=== PATIENT | female | born 1980 | race Caucasian/White ===

== ENCOUNTER 2017-01-15 09:20 | Day surgery (SDC) | payer MEDICAID ==
[2017-01-15] MEDS ORDERED: Dextrose 5%-Lactated Ringers 1,000 ML IV SCH (10:00)
[2017-01-15] MEDS ORDERED: Glycopyrrolate 0.2 MG/ML 2 ML SYRINGE IVPUSH ONE (10:30)
[2017-01-15] MEDS ORDERED: Propofol 200 MG/20 ML SDV ONE (11:02)
[2017-01-15] MEDS ORDERED: fentaNYL 100 MCG/2 ML SDV ONE (11:02)
[2017-01-15] MEDS ORDERED: Midazolam 1 MG/ML 2 ML SDV ONE (11:02)
[2017-01-15 12:27] VITALS: BP 115/70
--- NOTE | 2017-01-21 14:53 | OR ---
DATE OF PROCEDURE: 01/15/2017 PREOPERATIVE DIAGNOSIS: Dysphagia status post Willi fundoplication. POSTOPERATIVE DIAGNOSES: 1. Dysphagia status post Willi fundoplication. 2. Mild pre-pyloric gastritis. OPERATIVE PROCEDURE: Esophagogastroduodenoscopy with 1. Biopsies of antrum for CLOtest (49063). 2. Dilation of esophagus (18940). ANESTHESIA: IV sedation. INDICATION FOR PROCEDURE: The patient is remotely status post Willi fundoplication, presenting with some worsening dysphagia. Plan is to proceed with upper GI endoscopy with dilation as indicated. Potential risks including bleeding and perforation were discussed, and the patient wishes to proceed. DETAILS OF PROCEDURE: The patient was taken to the operating room and placed in a left lateral decubitus position. IV sedation was administered, after which the upper GI endoscope was passed orally through the length of the esophagus into the stomach with retroflexion view of the fundus, thereafter through the pyloric channel into the proximal duodenum. Findings included a normal esophageal body at the EG junction, and this in effect was present with no significant inflammation. Within the area of inflamation, one could clearly see into the stomach, i.e., this was not overly heightened and the scope easily passed through the area of fundoplication, retroflexion . I expect this in effect from that vantage point and within the remainder of the stomach, there was some mild redness in the pre-pyloric region. Otherwise, the pyloric channel and duodenum at the junction of 3rd and 4th portions were unremarkable. At this point, biopsies from the antrum were sent for a CLOtest for H. pylori, a guidewire was then passed into the stomach and the gastroscope withdrawn over the guidewire, then a Savary dilator 54-Yi in size was then placed across the esophagus, and held into position after which the dilator and wire were removed and the procedure concluded. The patient tolerated the procedure well. Plan would be to see the patient back in one month for recheck. The patient is also complaining of some left upper quadrant pain which is not explained by the present endoscopic findings. We will obtain a CT scan of the abdomen and pelvis and then we will see her back next 01/23/2017. Kings York MD /[id number]
== END 2017-01-15 12:44 | disposition home or self-care (01) ==
LOC: JP.SDS 09:20
PROVIDERS: ATTEND Surgery
DX: K29.60 Other gastritis without bleeding (principal); R13.10 Dysphagia, unspecified; K21.9 Gastro-esophageal reflux disease without esophagitis; F41.9 Anxiety disorder, unspecified; Z88.1 Allergy status to other antibiotic agents; Z91.013 Allergy to seafood; Z88.8 Allergy status to other drugs, medicaments and biological substances
CPT/HCPCS: 43239; 43248; 87081; J2250; J2704; J3010; J7042

== ENCOUNTER 2017-01-29 07:19 | Day surgery (SDC) | payer MEDICAID ==
[~2017-01-29 07:19] MED LIST: Midazolam 1 MG/ML 2 ML SDV ONE; Propofol 200 MG/20 ML SDV ONE; fentaNYL 100 MCG/2 ML SDV ONE
[2017-01-29] MEDS ORDERED: Dextrose 5%-Lactated Ringers 1,000 ML IV SCH (08:00)
[2017-01-29] MEDS ORDERED: Propofol 200 MG/20 ML SDV ONE (10:32)
[2017-01-29 11:56] VITALS: BP 119/72
--- NOTE | 2017-02-03 15:06 | OR ---
DATE OF PROCEDURE: 01/29/2017 PREOPERATIVE DIAGNOSIS: Possible left-sided colitis. POSTOPERATIVE DIAGNOSIS: Possible left-sided colitis. OPERATIVE PROCEDURE: Flexible colonoscopy with: 1. Random biopsies of the colon and rectum. 2. Biopsies of the descending colon (92491). ANESTHESIA: IV sedation. INDICATION FOR PROCEDURE: This is a 36-year-old presenting with some ongoing left-sided abdominal pain. Admission CT scan showed some possible thickening in the area of the descending colon as well as sigmoid colon. Given this, the patient elected to undergo a flexible colonoscopy with biopsies as indicated. Potential risks including bleeding and perforation were discussed, and the patient wishes to proceed. DETAILS OF PROCEDURE: The patient was taken to the operating room and placed in a left lateral decubitus position. IV sedation was administered, after which the initial digital rectal exam was performed and was unremarkable. Colonoscope was passed into the rectum with retroflexion revealing uncomplicated hemorrhoidal columns. The scope was eventually passed along the cecum. To that level, there was some very mild thickening of the mucosa within the descending colon. There are no ulcerations or true redness, but simply a very mild sense of some edema in that area. Apart from that, the entire remainder of the colorectal examination was unremarkable. The scope was then withdrawn. Multiple biopsies were obtained randomly through the colon and rectum. The biopsies in the descending colon area were sent as a separate specimen, given the slightly different findings grossly within that area. Minimal bleeding from the biopsy sites was seen, and the procedure was then concluded. The patient will be following up with Dr. York in [facility] in 1 week. Kings York MD /[id number]
== END 2017-01-29 12:15 ==
LOC: JP.SDS 07:19
PROVIDERS: ATTEND Surgery
DX: R10.10 Upper abdominal pain, unspecified (principal); K21.9 Gastro-esophageal reflux disease without esophagitis; F41.9 Anxiety disorder, unspecified; Z88.1 Allergy status to other antibiotic agents; Z91.013 Allergy to seafood; Z88.8 Allergy status to other drugs, medicaments and biological substances
CPT/HCPCS: 45380; 88305; J2250; J2704; J3010; J7042

== ENCOUNTER 2017-04-30 08:29 | Emergency (ER) | payer MEDICAID ==
[2017-04-30 08:44] VITALS: BP 134/86
--- NOTE | 2017-04-30 09:22 | EDM.PDOC ---
ED HPI GENERAL MEDICAL PROBLEM - General Chief Complaint: Bite:Animal, Insect Stated Complaint: TICK BITE Time Seen by Provider: 04/30/17 09:05 Source of Information: Reports: Patient History Limitations: Reports: No Limitations - History of Present Illness INITIAL COMMENTS - FREE TEXT/NARRATIVE: This lady found a tick on her back yesterday. The area hurts. Her said it wasn't a deer tick and that it was large. She complains of not feeling well and aching all over. She doesn't know how long the tick was attached. - Related Data Allergies Allergy/AdvReac Type Severity Reaction Status Date / Time tioconazole Allergy Severe Airway Verified 01/29/17 07:46 [From Monistat 1 Tightness (tioconazole)] shellfish derived Allergy Cannot Verified 01/29/17 07:46 Remember amoxicillin AdvReac Vomiting Verified 01/29/17 07:46 aspirin AdvReac Abdominal Verified 01/29/17 07:46 Pain ibuprofen AdvReac Abdominal Verified 01/29/17 07:46 Pain fish-derived products Allergy Other Uncoded 01/29/17 07:46 Home Meds: Home Meds Cholecalciferol (Vitamin D3) [Vitamin D3] 2,000 unit PO BEDTIME 04/04/14 [ History] Loratadine [Claritin RediTabs] 10 mg PO DAILY #30 tab.dis 04/27/15 [Rx] Pantoprazole [Protonix] 40 mg PO BEDTIME #30 tab.cr 04/27/15 [Rx] lamoTRIgine [Lamictal] 150 mg PO DAILY 05/02/16 [History] Ondansetron [Zofran] 4 mg PO Q4H PRN 12/15/16 [History] Past Medical History HEENT History: Reports: Sinusitis Other HEENT History: sinus infection Gastrointestinal History: Reports: GERD Genitourinary History: Reports: UTI, Recurrent GO [employer] D[employer]ER History: Reports: Musculoskeletal History: Reports: Arthritis Neurological History: Reports: Seizure Psychiatric History: Reports: Anxiety, Bipolar, Learning Disability, PTSD Endocrine/Metabolic History: Reports: Hypothyroidism, Vitamin D Deficiency - Infectious Disease History Infectious Disease History: Reports: C-Difficile - Past Surgical History GI Surgical History: Reports: Cholecystectomy, EGD, Esophageal Dilatation, Willi Fundoplication Female Surgical History: Reports: Tubal Ligation Musculoskeletal Surgical History: Reports: Carpal Tunnel Social & Family History - Family History Family Medical History: Noncontributory Cardiac: Reports: Arrhythmia Neurological: Reports: CVA - Tobacco Use Smoking Status *Q: Never Smoker Second Hand Smoke Exposure: No - Caffeine Use Caffeine Use: Reports: None - Alcohol Use Days Per Week of Alcohol Use: 0 - Recreational Drug Use Recreational Drug Use: No ED ROS GENERAL - Review of Systems Review Of Systems: See Below Constitutional: Reports: Weakness, Fatigue. Denies: Fever, Chills HEENT: Reports: No Symptoms Respiratory: Reports: No Symptoms Cardiovascular: Reports: No Symptoms : Reports: No Symptoms Musculoskeletal: Reports: Muscle Pain Skin: Reports: No Symptoms Neurological: Reports: No Symptoms Psychiatric: Reports: No Symptoms Hematologic/Lymphatic: Reports: No Symptoms ED EXAM, ANIMAL BITE - Physical Exam Exam: See Below Exam Limited By: No Limitations General Appearance: Alert, WD/WN, No Apparent Distress Eye Exam: Bilateral Eye: Normal Inspection Skin Exam: Other (there is a small red lily about 3x5 mm in the area of the right scapula. No rash. No adenopathy.) Course - Vital Signs Last Recorded V/S: Last Vital Signs Temp 36.4 C 04/30/17 08:39 Pulse 83 04/30/17 08:39 Resp 14 04/30/17 08:39 BP 134/86 04/30/17 08:39 Pulse Ox 99 04/30/17 08:39 Departure - Departure Time of Disposition: 09:24 Disposition: Home, Self-Care 01 Condition: Fair Clinical Impression: Tick bite - Discharge Information Forms: ED Department Discharge Additional Instructions: Take Doxycycline 100 mg twice daily. Lyme disease can't be diagnosed today based on your symptoms. The medication is more preventative than anything although you should go ahead and take the medication for a full 10 days. If not getting better in a few days then see your doctor.
== END 2017-04-30 09:43 | disposition home or self-care (01) ==
LOC: JP.ED 08:29
DX: S40.261A Insect bite (nonvenomous) of right shoulder, initial encounter (principal); W57.XXXA Bitten or stung by nonvenomous insect and other nonvenomous arthropods, initial encounter; K21.9 Gastro-esophageal reflux disease without esophagitis; E03.9 Hypothyroidism, unspecified; Z90.49 Acquired absence of other specified parts of digestive tract; Z98.51 Tubal ligation status; Z79.899 Other long term (current) drug therapy; Z91.013 Allergy to seafood; Z88.8 Allergy status to other drugs, medicaments and biological substances; Z88.1 Allergy status to other antibiotic agents; Z88.6 Allergy status to analgesic agent
CPT/HCPCS: 99283

== ENCOUNTER 2017-08-02 06:53 | Day surgery (SDC) | payer MEDICAID ==
[2017-08-02] MEDS ORDERED: fentaNYL 100 MCG/2 ML SDV ONE (07:06)
[2017-08-02] MEDS ORDERED: Propofol 200 MG/20 ML SDV ONE (07:06)
[2017-08-02] MEDS ORDERED: Midazolam 1 MG/ML 2 ML SDV ONE (07:06)
[2017-08-02] MEDS ORDERED: Dextrose 5%-Lactated Ringers 1,000 ML IV SCH (07:30)
[2017-08-02] MEDS ORDERED: Glycopyrrolate 0.2 MG/ML 2 ML SDV IVPUSH ONE (08:00)
[2017-08-02 10:41] VITALS: BP 122/74
--- NOTE | 2017-08-07 15:04 | OR ---
DATE OF PROCEDURE: 08/02/2017 PREOPERATIVE DIAGNOSIS: Dysphagia status post Willi fundoplication. POSTOPERATIVE DIAGNOSIS: Dysphagia status post Willi fundoplication. OPERATIVE PROCEDURE: Upper GI endoscopy with esophageal dilation (38458). ANESTHESIA: IV sedation. INDICATION FOR PROCEDURE: This is a 36-year-old status post Willi fundoplication in 2011. She intermittently has problems with dysphagia and does well with dilation with the last dilation having been performed in December. Plan is to proceed with upper GI endoscopy with dilation as indicated. Potential risks including bleeding and perforation were discussed, and the patient wishes to proceed. DETAILS OF PROCEDURE: The patient was taken to the operating room and placed in a left lateral decubitus position. IV sedation was administered, after which the upper GI endoscope was passed orally through the length of the esophagus and into the stomach with retroflexion view of the fundus, thereafter through the pyloric channel and into the proximal duodenum. Findings included a normal hypopharynx, larynx, upper esophageal sphincter, and esophageal body. No esophageal dilation was noted. The patient had an intact Willi effect at the EG junction with there being no gross inflammation with the distal esophageal mucosa being soft and pliable. The opening through the area of fundoplication was without significant abnormal tightness grossly, with this opening easily with insufflation within the distal esophagus. Within the stomach, no problems were noted. The Willi effect was confirmed with retroflexion. Pyloric channel and proximal duodenum were unremarkable. At this point, a guidewire was passed into the stomach, and the gastroscope was withdrawn. Over this, then a 54-[place] Savary dilator was placed. This was held in position for 1 minute. After which, the dilator and wire were removed. The patient was taken to the recovery room in a satisfactory condition. The patient will be instructed to contact us sooner if she has recurrent problems with dysphagia. Kings York MD /[id number]
== END 2017-08-02 12:00 | disposition home or self-care (01) ==
LOC: JP.SDS 06:53
PROVIDERS: ATTEND Surgery
DX: R13.10 Dysphagia, unspecified (principal); K21.9 Gastro-esophageal reflux disease without esophagitis; E03.9 Hypothyroidism, unspecified; F41.9 Anxiety disorder, unspecified; E55.9 Vitamin D deficiency, unspecified; Z88.1 Allergy status to other antibiotic agents; Z91.013 Allergy to seafood; Z88.8 Allergy status to other drugs, medicaments and biological substances; Z90.49 Acquired absence of other specified parts of digestive tract; Z98.51 Tubal ligation status; Z98.890 Other specified postprocedural states
CPT/HCPCS: 43248; J2250; J2704; J3010; J7042

== ENCOUNTER 2018-03-21 19:58 | Emergency (ER) | payer MEDICAID ==
[2018-03-21 20:14] VITALS: BP 145/85
[2018-03-21] MEDS ORDERED: Doxycycline 100 MG Cap PO ONE (20:36)
[2018-03-21] MEDS ORDERED: Acetaminophen 500 MG Tab PO ONE (20:36)
--- NOTE | 2018-03-21 20:39 | EDM.PDOC ---
ED HPI GENERAL MEDICAL PROBLEM - General Chief Complaint: Back Pain or Injury Stated Complaint: SHARP STOMACH PAINS Time Seen by Provider: 03/21/18 20:25 Source of Information: Reports: Patient History Limitations: Reports: No Limitations - History of Present Illness INITIAL COMMENTS - FREE TEXT/NARRATIVE: Patient presents to the ER with complaints of tick bite to right upper back. She states the tick could have been attached for 4 days. She denies fever, chills or muscle aches. She complains of right sided pain off and on. abd Pain Score (Numeric/FACES): 9 - Related Data Allergies Allergy/AdvReac Type Severity Reaction Status Date / Time tioconazole Allergy Severe Airway Verified 03/21/18 20:17 [From Monistat 1 Tightness (tioconazole)] shellfish derived Allergy Cannot Verified 03/21/18 20:17 Remember amoxicillin AdvReac Vomiting Verified 03/21/18 20:17 aspirin AdvReac Abdominal Verified 03/21/18 20:17 Pain ibuprofen AdvReac Abdominal Verified 03/21/18 20:17 Pain fish-derived products Allergy Other Uncoded 03/21/18 20:17 Home Meds: Home Meds Cholecalciferol (Vitamin D3) [Vitamin D3] 2,000 unit PO BEDTIME 04/04/14 [ History] Loratadine [Claritin RediTabs] 10 mg PO DAILY #30 tab.dis 04/27/15 [Rx] Pantoprazole [Protonix] 40 mg PO BEDTIME #30 tab.cr 04/27/15 [Rx] lamoTRIgine [Lamictal] 200 mg PO DAILY 05/02/16 [History] Ondansetron [Zofran] 4 mg PO Q4H PRN 12/15/16 [History] Fluticasone/Salmeterol [Advair 250-50 Diskus] 2 puff INH DAILY 03/21/18 [History ] QUEtiapine [SEROquel] 100 mg PO BEDTIME 03/21/18 [History] Past Medical History HEENT History: Reports: Sinusitis Other HEENT History: sinus infection Respiratory History: Reports: Asthma Gastrointestinal History: Reports: GERD Genitourinary History: Reports: UTI, Recurrent [employer] MANAGER History: Reports: Musculoskeletal History: Reports: Arthritis Neurological History: Reports: Seizure Psychiatric History: Reports: Anxiety, Bipolar, Learning Disability, PTSD Endocrine/Metabolic History: Reports: Hypothyroidism, Vitamin D Deficiency Hematologic History: Reports: B12 Deficiency, Iron Deficiency - Infectious Disease History Infectious Disease History: Reports: C-Difficile - Past Surgical History Head Surgeries/Procedures: Reports: None HEENT Surgical History: Reports: None Cardiovascular Surgical History: Reports: None GI Surgical History: Reports: Cholecystectomy, EGD, Esophageal Dilatation, Willi Fundoplication Female Surgical History: Reports: Tubal Ligation Neurological Surgical History: Reports: None Musculoskeletal Surgical History: Reports: Carpal Tunnel Dermatological Surgical History: Reports: None Social & Family History - Family History Family Medical History: Noncontributory Cardiac: Reports: Arrhythmia, Prior Cardiac Arrest OBGYN: Reports: Neurological: Reports: CVA - Caffeine Use Caffeine Use: Reports: Tea - Recreational Drug Use Recreational Drug Use: No ED ROS GENERAL - Review of Systems Review Of Systems: See Below Constitutional: Denies: Fever, Chills, Malaise, Weakness HEENT: Reports: No Symptoms Respiratory: Reports: No Symptoms Cardiovascular: Reports: No Symptoms Endocrine: Reports: No Symptoms GI/Abdominal: Reports: No Symptoms Musculoskeletal: Denies: Shoulder Pain, Joint Swelling, Muscle Pain, Muscle Stiffness Skin: Reports: Other (tick bite to right upper back.) Neurological: Reports: No Symptoms Psychiatric: Reports: No Symptoms Hematologic/Lymphatic: Reports: No Symptoms Immunologic: Reports: No Symptoms ED EXAM, SKIN/RASH Exam: See Below Text/Narrative:: Sabi presents to the ER tonight for complaints of tick bite to right upper back for four days and intermittent left sided rib pain. Exam Limited By: No Limitations General Appearance: Alert, WD/WN, No Apparent Distress Eye Exam: Bilateral Eye: EOMI, PERRL, Vision Changes Ears: Normal External Exam, Normal Canal, Hearing Grossly Normal, Normal TMs Nose: Normal Inspection, Normal Mucosa, No Blood Throat/Mouth: Normal Inspection, Normal Lips, Normal Gums, Normal Oropharynx, Normal Voice, No Airway Compromise, Perioral Cyanosis Head: Atraumatic Neck: Normal Inspection, Supple, Non-Tender, Full Range of Motion. No: Lymphadenopathy (R), Lymphadenopathy (L) Respiratory/Chest: No Respiratory Distress, Lungs Clear, Normal Breath Sounds, No Accessory Muscle Use, Chest Non-Tender Cardiovascular: Normal Peripheral Pulses, Regular Rate, Rhythm, No Edema, No Murmur, No Rub Peripheral Pulses: 2+: Radial (L), Radial (R), Dorsalis Pedis (L), Dorsalis Pedis (R) GI/Abdominal: Normal Bowel Sounds, Soft, Non-Tender, No Organomegaly, No Distention Back Exam: Normal Inspection, Full Range of Motion. No: CVA Tenderness (R), CVA Tenderness (L) Extremities: Normal Inspection, Normal Range of Motion, Non-Tender, No Pedal Edema, Normal Capillary Refill Neurological: Alert, Oriented, Normal Cognition, Normal Gait, Normal Reflexes, No Motor/Sensory Deficits Psychiatric: Normal Affect, Normal Mood Skin: Warm, Dry, Intact, Normal Color, No Rash, Other (Small area of redness noted to site of tickbite, 0.5cm round. ) Location, Skin: Back Characteristics: Maculopapular Associated features: No: Warmth, Tenderness, Swelling, Induration, Inflammation , Crusting, Weeping Lymphatic: No Adenopathy Course - Vital Signs Last Recorded V/S: Last Vital Signs Temp 36.8 C 03/21/18 20:22 Pulse 110 H 03/21/18 20:22 Resp 16 03/21/18 20:22 BP 145/85 H 03/21/18 20:22 Pulse Ox 97 03/21/18 20:22 - Orders/Labs/Meds Meds: Medications Discontinued Medications Generic Name Dose Route Start Last Admin Trade Name Frank PRN Reason Stop Dose Admin Acetaminophen 1,000 mg 03/21/18 20:36 03/21/18 20:41 Tylenol Extra Strength PO 03/21/18 20:37 1,000 mg ONETIME ONE Administration Doxycycline Hyclate 200 mg 03/21/18 20:36 03/21/18 20:41 Vibramycin PO 03/21/18 20:37 200 mg ONETIME ONE Administration Departure - Departure Time of Disposition: 20:36 Disposition: Home, Self-Care 01 Condition: Good Clinical Impression: Tick bite of back - Discharge Information Instructions: Tick Bite Information, Adult, [id number] Referrals: Kiah Howard PA [Primary Care Provider] - Forms: ED Department Discharge Additional Instructions: You have been treated and evaluated for a tick bite with possible attachment of 96 hours. You were given a prophylactic dose of doxycycline 200mg PO. Take acetaminophen as needed for pain. Keep yourself hydrated. Follow up with your primary provider in 14 weeks for recheck. Return for worsening, issues or concerns. - Assessment/Plan Assessment:: Tick bite back Plan: Patient evaluated for a tick bite with possible attachment of 96 hours. She was given a prophylactic dose of doxycycline 200mg PO. Take acetaminophen as needed for pain. Keep hydrated. Follow up with primary provider in 14 weeks for recheck. Return for worsening, issues or concerns.
== END 2018-03-21 20:52 | disposition home or self-care (01) ==
LOC: JP.ED 19:58
DX: S20.461A Insect bite (nonvenomous) of right back wall of thorax, initial encounter (principal); Z88.6 Allergy status to analgesic agent; Z91.013 Allergy to seafood; Z88.8 Allergy status to other drugs, medicaments and biological substances; Z79.899 Other long term (current) drug therapy; W57.XXXA Bitten or stung by nonvenomous insect and other nonvenomous arthropods, initial encounter
CPT/HCPCS: 99283; A9270

== ENCOUNTER 2018-05-12 21:05 | Emergency (ER) | payer MEDICAID ==
[2018-05-12 21:19] VITALS: BP 136/75
--- NOTE | 2018-05-12 21:46 | EDM.PDOC ---
ED HPI GENERAL MEDICAL PROBLEM - General Chief Complaint: ENT Problem Stated Complaint: TOOTH PAIN Time Seen by Provider: 05/12/18 21:25 Source of Information: Reports: Patient History Limitations: Reports: No Limitations - History of Present Illness INITIAL COMMENTS - FREE TEXT/NARRATIVE: 37-year-old female with right mandibular dental pain for the past several weeks. Over the past 48 hours she started developing some erythema and swelling around the second molar. All of her upper teeth have been removed, but her regular dentist can see her until May. She has called around in [place] and no one will see her. The pain radiates up into the right ear area but there is no significant swelling or erythema. No fevers or chills. Onset: Gradual (over the past 2 weeks) Severity: Moderate Associated Symptoms: Reports: Headaches. Denies: Fever/Chills right side Pain Score (Numeric/FACES): 10 - Related Data Allergies Allergy/AdvReac Type Severity Reaction Status Date / Time tioconazole Allergy Severe Airway Verified 05/12/18 21:17 [From Monistat 1 Tightness (tioconazole)] shellfish derived Allergy Cannot Verified 05/12/18 21:17 Remember amoxicillin AdvReac Vomiting Verified 05/12/18 21:17 aspirin AdvReac Abdominal Verified 05/12/18 21:17 Pain ibuprofen AdvReac Abdominal Verified 05/12/18 21:17 Pain fish-derived products Allergy Other Uncoded 05/12/18 21:17 Home Meds: Home Meds Cholecalciferol (Vitamin D3) [Vitamin D3] 2,000 unit PO BEDTIME 04/04/14 [ History] Loratadine [Claritin RediTabs] 10 mg PO DAILY #30 tab.dis 04/27/15 [Rx] Pantoprazole [Protonix] 40 mg PO BEDTIME #30 tab.cr 04/27/15 [Rx] lamoTRIgine [Lamictal] 200 mg PO DAILY 05/02/16 [History] Ondansetron [Zofran] 4 mg PO Q4H PRN 12/15/16 [History] Fluticasone/Salmeterol [Advair 250-50 Diskus] 2 puff INH DAILY 03/21/18 [History ] QUEtiapine [SEROquel] 100 mg PO BEDTIME 03/21/18 [History] Past Medical History HEENT History: Reports: Sinusitis Other HEENT History: sinus infection Respiratory History: Reports: Asthma Gastrointestinal History: Reports: GERD Genitourinary History: Reports: UTI, Recurrent [employer] History: Reports: Musculoskeletal History: Reports: Arthritis Neurological History: Reports: Seizure Psychiatric History: Reports: Anxiety, Bipolar, Learning Disability, PTSD Endocrine/Metabolic History: Reports: Hypothyroidism, Vitamin D Deficiency Hematologic History: Reports: B12 Deficiency, Iron Deficiency - Infectious Disease History Infectious Disease History: Reports: C-Difficile - Past Surgical History Head Surgeries/Procedures: Reports: None HEENT Surgical History: Reports: None Cardiovascular Surgical History: Reports: None GI Surgical History: Reports: Cholecystectomy, EGD, Esophageal Dilatation, Willi Fundoplication Female Surgical History: Reports: Tubal Ligation Neurological Surgical History: Reports: None Musculoskeletal Surgical History: Reports: Carpal Tunnel Dermatological Surgical History: Reports: None Social & Family History - Family History Family Medical History: Noncontributory Cardiac: Reports: Arrhythmia, Prior Cardiac Arrest OBGYN: Reports: Neurological: Reports: CVA - Tobacco Use Smoking Status *Q: Never Smoker - Caffeine Use Caffeine Use: Reports: None - Recreational Drug Use Recreational Drug Use: No ED ROS ENT - Review of Systems Review Of Systems: See Below Constitutional: Denies: Fever, Chills Respiratory: Denies: Shortness of Breath Cardiovascular: Denies: Chest Pain GI/Abdominal: Denies: Nausea, Vomiting Skin: Denies: Erythema Neurological: Reports: Headache ED EXAM, ENT - Physical Exam Exam: See Below Exam Limited By: No Limitations General Appearance: Alert, No Apparent Distress (Looks uncomfortable but not distressed) Mouth/Throat: Other (She has diffuse dental caries of the lower teeth, the second molar on the right mandible has gingival inflammation and swelling around the tooth, it is tender to percussion) Course - Vital Signs Last Recorded V/S: Last Vital Signs Temp 98 F 05/12/18 21:17 Pulse 93 05/12/18 21:17 Resp 18 05/12/18 21:17 BP 136/75 05/12/18 21:17 Pulse Ox 99 05/12/18 21:17 - Re-Assessments/Exams Free Text/Narrative Re-Assessment/Exam: 05/12/18 21:44 Patient was placed on penicillin VK 500 4 times a day and given 6 [place] to help with pain control over the next 24 hours. A dental referral was written for tomorrow morning, so hopefully she can get dental care established here in [place]. Departure - Departure Time of Disposition: 21:54 Disposition: Home, Self-Care 01 Condition: Good Clinical Impression: Dental abscess - Discharge Information Instructions: Dental Abscess, [id number] Referrals: Kiah Howard PA [Primary Care Provider] - Forms: ED Department Discharge Care Plan Goals: Take antibiotic 4 times a day, work into the dental clinic tomorrow for an evaluation. Tylenol or ibuprofen for pain and add stronger pain medication over the next 24 hours as needed.
== END 2018-05-12 21:54 | disposition home or self-care (01) ==
LOC: JP.ED 21:05
DX: K04.7 Periapical abscess without sinus (principal)
CPT/HCPCS: 99283

== ENCOUNTER 2018-11-23 10:43 | Emergency (ER) | payer MEDICAID ==
[2018-11-23 11:26] VITALS: BP 129/75
[2018-11-23] MEDS ORDERED: Sodium Chloride 0.9% 10 ML Syringe FLUSH PRN (12:11)
[2018-11-23] MEDS ORDERED: Ondansetron 4 MG/2 ML SDV IVPUSH ONE (12:11)
[2018-11-23] MEDS ORDERED: Sodium Chloride 0.9% 1,000 ML IV ONE (12:11)
--- NOTE | 2018-11-23 14:08 | EDM.PDOC ---
ED HPI GENERAL MEDICAL PROBLEM - General Chief Complaint: Abdominal Pain Stated Complaint: VOMITING Time Seen by Provider: 11/23/18 11:08 Source of Information: Reports: Patient History Limitations: Reports: No Limitations - History of Present Illness INITIAL COMMENTS - FREE TEXT/NARRATIVE: This lady comes in complaining of vomiting and diarrhea since this morning. She' s had several episodes of diarrhea she's vomited several times she said it sort of like a white phlegm. She's had chills but no fever. She did not get a flu shot but doesn't have any symptoms such as fever or body aches and so forth. - Related Data Allergies Allergy/AdvReac Type Severity Reaction Status Date / Time tioconazole Allergy Severe Airway Verified 11/23/18 11:12 [From Monistat 1 Tightness (tioconazole)] shellfish derived Allergy Cannot Verified 11/23/18 11:12 Remember amoxicillin AdvReac Vomiting Verified 11/23/18 11:12 aspirin AdvReac Abdominal Verified 11/23/18 11:12 Pain ibuprofen AdvReac Abdominal Verified 11/23/18 11:12 Pain fish-derived products Allergy Other Uncoded 11/23/18 11:12 Home Meds: Home Meds Cholecalciferol (Vitamin D3) [Vitamin D3] 2,000 unit PO BEDTIME 04/04/14 [ History] Loratadine [Claritin RediTabs] 10 mg PO DAILY #30 tab.dis 04/27/15 [Rx] Pantoprazole [Protonix] 40 mg PO BEDTIME #30 tab.cr 04/27/15 [Rx] lamoTRIgine [Lamictal] 200 mg PO DAILY 05/02/16 [History] Fluticasone/Salmeterol [Advair 250-50 Diskus] 2 puff INH DAILY 03/21/18 [History ] QUEtiapine [SEROquel] 100 mg PO BEDTIME 03/21/18 [History] Past Medical History HEENT History: Reports: Sinusitis Other HEENT History: sinus infection Respiratory History: Reports: Asthma Gastrointestinal History: Reports: GERD Genitourinary History: Reports: UTI, Recurrent 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: Musculoskeletal History: Reports: Arthritis Neurological History: Reports: Seizure Psychiatric History: Reports: Anxiety, Bipolar, Learning Disability, PTSD Endocrine/Metabolic History: Reports: Hypothyroidism, Vitamin D Deficiency Hematologic History: Reports: B12 Deficiency, Iron Deficiency - Infectious Disease History Infectious Disease History: Reports: C-Difficile - Past Surgical History Head Surgeries/Procedures: Reports: None HEENT Surgical History: Reports: None Cardiovascular Surgical History: Reports: None GI Surgical History: Reports: Cholecystectomy, EGD, Esophageal Dilatation, Willi Fundoplication Female Surgical History: Reports: Tubal Ligation Neurological Surgical History: Reports: None Musculoskeletal Surgical History: Reports: Carpal Tunnel Dermatological Surgical History: Reports: None Social & Family History - Family History Family Medical History: Noncontributory Cardiac: Reports: Arrhythmia, Prior Cardiac Arrest OBGYN: Reports: Neurological: Reports: CVA - Tobacco Use Smoking Status *Q: Never Smoker - Caffeine Use Caffeine Use: Reports: None ED ROS GENERAL - Review of Systems Review Of Systems: See Below Constitutional: Reports: Chills HEENT: Reports: No Symptoms Respiratory: Reports: No Symptoms Cardiovascular: Reports: No Symptoms Endocrine: Reports: No Symptoms GI/Abdominal: Reports: Abdominal Pain, Diarrhea, Vomiting : Reports: No Symptoms Musculoskeletal: Reports: No Symptoms Skin: Reports: No Symptoms Neurological: Reports: No Symptoms ED EXAM, GI/ABD - Physical Exam Exam: See Below Exam Limited By: No Limitations General Appearance: Alert Eyes: Bilateral: Normal Appearance Throat/Mouth: Normal Oropharynx Head: Atraumatic Neck: Normal Inspection Respiratory/Chest: No Respiratory Distress, Normal Breath Sounds Cardiovascular: Regular Rate, Rhythm, Other GI/Abdominal Exam: Normal Bowel Sounds, Soft Extremities: Normal Inspection Course - Vital Signs Last Recorded V/S: Last Vital Signs Temp 35.8 C 11/23/18 11:24 Pulse 84 11/23/18 11:24 Resp 14 11/23/18 11:24 BP 129/75 11/23/18 11:24 Pulse Ox 97 11/23/18 11:24 - Orders/Labs/Meds Orders: Active Orders 24 hr Category Date Time Status Sodium Chloride 0.9% [Saline Flush] Med 11/23/18 12:11 Active 10 ml FLUSH ASDIRECTED PRN Saline Lock Insert [OM.PC] Urgent Oth 11/23/18 12:11 Ordered Medication Orders Sodium Chloride (Saline Flush) 10 ml FLUSH ASDIRECTED PRN PRN Reason: Keep Vein Open Last Admin: 11/23/18 12:28 Dose: 10 ml Labs: Laboratory Tests 11/23/18 11/23/18 Range/Units 12:10 12:10 WBC 9.7 (4.5-11.0) K/uL RBC 5.08 (3.30-5.50) M/uL Hgb 14.5 (12.0-15.0) g/dL Hct 44.1 (36.0-48.0) % MCV 87 (80-98) fL MCH 29 (27-31) pg MCHC 33 (32-36) % Plt Count 336 (150-400) K/uL Neut % (Auto) 88 H (36-66) % Lymph % (Auto) 8 L (24-44) % Hand % (Auto) 3 (2-6) % Eos % (Auto) 0 L (2-4) % Baso % (Auto) 0 (0-1) % Sodium 139 L (140-148) mmol/L Potassium 3.8 (3.6-5.2) mmol/L Chloride 101 (100-108) mmol/L Carbon Dioxide 28 (21-32) mmol/L Anion Gap 13.8 (5.0-14.0) mmol/L BUN 3 L (7-18) mg/dL Creatinine 0.6 (0.6-1.0) mg/dL Est Cr Clr Drug Dosing 117.84 mL/min Estimated GFR (MDRD) > 60 (>60) Glucose 117 H (74-106) mg/dL Calcium 9.0 (8.5-10.1) mg/dL Total Bilirubin 0.5 (0.2-1.0) mg/dL AST 12 L (15-37) U/L ALT 20 (12-78) U/L Alkaline Phosphatase 55 D (46-116) U/L Total Protein 7.4 (6.4-8.2) g/dL Albumin 3.6 (3.4-5.0) g/dL Globulin 3.8 H (2.3-3.5) g/dL Albumin/Globulin Ratio 1.0 L (1.2-2.2) Meds: Medications Generic Name Dose Route Start Last Admin Trade Name Freq PRN Reason Stop Dose Admin Sodium Chloride 10 ml 11/23/18 12:11 11/23/18 12:28 Saline Flush FLUSH 10 ml ASDIRECTED PRN Administration Keep Vein Open Discontinued Medications Generic Name Dose Route Start Last Admin Trade Name Freq PRN Reason Stop Dose Admin Sodium Chloride 1,000 mls @ 999 mls/hr 11/23/18 12:11 11/23/18 12:29 Normal Saline IV 11/23/18 13:11 999 mls/hr .BOLUS ONE Administration Ondansetron HCl 4 mg 11/23/18 12:11 11/23/18 12:29 Zofran IVPUSH 11/23/18 12:12 4 mg ONETIME ONE Administration Departure - Departure Time of Disposition: 14:11 Disposition: Home, Self-Care 01 Condition: Fair Clinical Impression: Gastroenteritis - Discharge Information Referrals: Kiah Howard PA [Primary Care Provider] - Additional Instructions: Clear liquid diet for the next 24 hours. For diarrhea and cramps use Lomotil 2 tablets 4 times per day, #15. For nausea and vomiting take Zofran 4 mg sublingual every 8 hours #10. See your Dr. if no better in 1 or 2 days - My Orders Last 24 Hours: My Active Orders 11/23/18 12:11 Sodium Chloride 0.9% [Saline Flush] 10 ml FLUSH ASDIRECTED PRN Saline Lock Insert [OM.PC] Urgent - Assessment/Plan Last 24 Hours: My Active Orders 11/23/18 12:11 Sodium Chloride 0.9% [Saline Flush] 10 ml FLUSH ASDIRECTED PRN Saline Lock Insert [OM.PC] Urgent
== END 2018-11-23 14:32 | disposition home or self-care (01) ==
LOC: JP.ED 10:43
DX: K52.9 Noninfective gastroenteritis and colitis, unspecified (principal); E03.9 Hypothyroidism, unspecified; Z90.49 Acquired absence of other specified parts of digestive tract; Z79.899 Other long term (current) drug therapy; Z98.51 Tubal ligation status; Z88.1 Allergy status to other antibiotic agents; Z88.6 Allergy status to analgesic agent; Z91.013 Allergy to seafood; Z88.8 Allergy status to other drugs, medicaments and biological substances
CPT/HCPCS: 36415; 80053; 85025; 96374; 99284; J2405; J7030

== ENCOUNTER 2018-11-24 05:39 | Emergency (ER) | payer MEDICAID ==
[2018-11-24] MEDS ORDERED: Sodium Chloride 0.9% 10 ML Syringe FLUSH PRN (06:14)
[2018-11-24] MEDS ORDERED: Lactated Ringers 1,000 ML IV SCH (06:15)
[2018-11-24] MEDS ORDERED: fentaNYL 100 MCG/2 ML SDV IVPUSH ONE (06:17)
[2018-11-24] MEDS ORDERED: Pantoprazole 40 MG Vial IVPUSH ONE (06:17)
--- NOTE | 2018-11-24 06:26 | EDM.PDOC ---
<OfficerManpreet - Last Filed: 11/24/18 06:23> ED HPI GENERAL MEDICAL PROBLEM - General Chief Complaint: Gastrointestinal Problem Stated Complaint: STOMACH PAIN VOMITING Time Seen by Provider: 11/24/18 06:09 Source of Information: Reports: Patient, Old Records, RN Notes Reviewed History Limitations: Reports: No Limitations - History of Present Illness INITIAL COMMENTS - FREE TEXT/NARRATIVE: Was evaluated for nausea vomiting diarrhea yesterday in the emergency department felt to have gastroenteritis, she states the diarrhea has resolved the nausea and vomiting could earlier this morning but now she's developed epigastric pain is constant in nature however she is still nauseated no shortness of breath no chest pain no diaphoresis abd pain Pain Score (Numeric/FACES): 10 - Related Data Allergies Allergy/AdvReac Type Severity Reaction Status Date / Time tioconazole Allergy Severe Airway Verified 11/24/18 05:54 [From Monistat 1 Tightness (tioconazole)] shellfish derived Allergy Cannot Verified 11/24/18 05:54 Remember amoxicillin AdvReac Vomiting Verified 11/24/18 05:54 aspirin AdvReac Abdominal Verified 11/24/18 05:54 Pain ibuprofen AdvReac Abdominal Verified 11/24/18 05:54 Pain fish-derived products Allergy Other Uncoded 11/24/18 05:54 Home Meds: Home Meds Cholecalciferol (Vitamin D3) [Vitamin D3] 2,000 unit PO BEDTIME 04/04/14 [ History] Loratadine [Claritin RediTabs] 10 mg PO DAILY #30 tab.dis 04/27/15 [Rx] Pantoprazole [Protonix] 40 mg PO BEDTIME #30 tab.cr 04/27/15 [Rx] lamoTRIgine [Lamictal] 200 mg PO DAILY 05/02/16 [History] Fluticasone/Salmeterol [Advair 250-50 Diskus] 2 puff INH DAILY 03/21/18 [History ] QUEtiapine [SEROquel] 100 mg PO BEDTIME 03/21/18 [History] Past Medical History HEENT History: Reports: Sinusitis Other HEENT History: sinus infection Respiratory History: Reports: Asthma Gastrointestinal History: Reports: GERD Genitourinary History: Reports: UTI, Recurrent 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: Musculoskeletal History: Reports: Arthritis Neurological History: Reports: Seizure Psychiatric History: Reports: Anxiety, Bipolar, Learning Disability, PTSD Endocrine/Metabolic History: Reports: Hypothyroidism, Vitamin D Deficiency Hematologic History: Reports: B12 Deficiency, Iron Deficiency - Infectious Disease History Infectious Disease History: Reports: Chicken Pox - Past Surgical History Head Surgeries/Procedures: Reports: None HEENT Surgical History: Reports: None Cardiovascular Surgical History: Reports: None GI Surgical History: Reports: Cholecystectomy, EGD, Esophageal Dilatation, Willi Fundoplication Female Surgical History: Reports: Tubal Ligation Neurological Surgical History: Reports: None Musculoskeletal Surgical History: Reports: Carpal Tunnel Dermatological Surgical History: Reports: None Social & Family History - Family History Family Medical History: Noncontributory Cardiac: Reports: Arrhythmia, Prior Cardiac Arrest OBGYN: Reports: Neurological: Reports: CVA - Tobacco Use Smoking Status *Q: Unknown Ever Smoked - Caffeine Use Caffeine Use: Reports: Coffee, Soda - Recreational Drug Use Recreational Drug Use: No ED ROS GENERAL - Review of Systems Review Of Systems: See Below Constitutional: Denies: Fever, Chills HEENT: Reports: No Symptoms Respiratory: Reports: No Symptoms Cardiovascular: Reports: No Symptoms GI/Abdominal: Reports: Abdominal Pain, Diarrhea, Nausea, Vomiting (Now resolved resolved) : Reports: No Symptoms Musculoskeletal: Reports: No Symptoms Skin: Reports: No Symptoms ED EXAM, GI/ABD - Physical Exam Exam: See Below Exam Limited By: No Limitations General Appearance: Alert, Mild Distress Eyes: Bilateral: Normal Appearance Respiratory/Chest: No Respiratory Distress, Lungs Clear, Normal Breath Sounds, No Accessory Muscle Use Cardiovascular: Regular Rate, Rhythm, No Murmur GI/Abdominal Exam: Normal Bowel Sounds (Epigastric pain), Soft, No Distention, Tender Course - Vital Signs Last Recorded V/S: Last Vital Signs Temp 36.1 C 11/24/18 05:51 Pulse 105 H 11/24/18 10:13 Resp 16 11/24/18 10:13 BP 116/71 11/24/18 10:13 Pulse Ox 99 11/24/18 10:13 - Orders/Labs/Meds Orders: Active Orders 24 hr Category Date Time Status Peripheral IV Care [RC] . DIRECTED Care 11/24/18 06:14 Active Abdomen Pelvis w Cont [CT] Stat Exams 11/24/18 06:54 Taken CULTURE URINE [RM] Stat Lab 11/24/18 10:15 Ordered Iopamidol [Isovue-300 (61%)] Med 11/24/18 07:01 Active 132 ml IV . DIRECTED PRN Lactated Ringers [Ringers, Lactated] 1,000 ml Med 11/24/18 06:15 Active IV ASDIRECTED Sodium Chloride 0.9% [Normal Saline] 1,000 ml Med 11/24/18 08:15 Active IV ASDIRECTED Sodium Chloride 0.9% [Normal Saline] 80 ml Med 11/24/18 07:15 Active IV ASDIRECTED Sodium Chloride 0.9% [Saline Flush] Med 11/24/18 06:14 Active 10 ml FLUSH ASDIRECTED PRN Peripheral IV Insertion Adult [OM.PC] Urgent Oth 11/24/18 06:14 Ordered Medication Orders Lactated Ringer's (Ringers, Lactated) 1,000 mls @ 999 mls/hr IV ASDIRECTED MONCHO Last Admin: 11/24/18 06:31 Dose: 999 mls/hr Sodium Chloride (Normal Saline) 80 mls @ 3.5 mls/sec IV ASDIRECTED MONCHO Last Admin: 11/24/18 07:16 Dose: 3.5 mls/sec Sodium Chloride (Normal Saline) 1,000 mls @ 999 mls/hr IV ASDIRECTED MONCHO Last Admin: 11/24/18 08:13 Dose: 999 mls/hr Iopamidol (Isovue-300 (61%)) 132 ml IV . DIRECTED PRN PRN Reason: RADIOLOGY EXAM Stop: 11/25/18 07:02 Last Admin: 11/24/18 07:16 Dose: 132 ml Sodium Chloride (Saline Flush) 10 ml FLUSH ASDIRECTED PRN PRN Reason: Keep Vein Open Last Admin: 11/24/18 06:35 Dose: 10 ml Labs: Laboratory Tests 11/24/18 11/24/18 11/24/18 Range/Units 06:14 06:32 06:32 WBC 10.6 (4.5-11.0) K/uL RBC 4.89 (3.30-5.50) M/uL Hgb 14.0 (12.0-15.0) g/dL Hct 42.8 (36.0-48.0) % MCV 88 (80-98) fL MCH 29 (27-31) pg MCHC 33 (32-36) % Plt Count 327 (150-400) K/uL Neut % (Auto) 89 H (36-66) % Lymph % (Auto) 8 L (24-44) % [place] % (Auto) 4 (2-6) % Eos % (Auto) 0 L (2-4) % Baso % (Auto) 0 (0-1) % Sodium 141 (140-148) mmol/L Potassium 3.6 (3.6-5.2) mmol/L Chloride 102 (100-108) mmol/L Carbon Dioxide 28 (21-32) mmol/L Anion Gap 10.6 (5.0-14.0) mmol/L BUN 3 L (7-18) mg/dL Creatinine 0.8 (0.6-1.0) mg/dL Est Cr Clr Drug Dosing 88.38 mL/min Estimated GFR (MDRD) > 60 (>60) Glucose 111 H (74-106) mg/dL Lactic Acid (0.4-2.0) mmol/L Calcium 8.9 (8.5-10.1) mg/dL Total Bilirubin 0.6 (0.2-1.0) mg/dL AST 75 H D (15-37) U/L ALT 54 D (12-78) U/L Alkaline Phosphatase 74 (46-116) U/L Troponin I < 0.017 (0.000-0.056) ng/mL C-Reactive Protein (0.0-0.3) mg/dL Total Protein 7.5 (6.4-8.2) g/dL Albumin 3.6 (3.4-5.0) g/dL Globulin 3.9 H (2.3-3.5) g/dL Albumin/Globulin Ratio 0.9 L (1.2-2.2) Lipase 92 (73-393) U/L Urine Color Yellow Urine Appearance Cloudy Urine pH 5.0 (4.5-8.0) Ur Specific [place] 1.025 (1.008-1.030) Urine Protein Trace (NEGATIVE) mg/dL Urine Glucose (UA) Normal (NEGATIVE) mg/dL Urine Ketones Negative (NEGATIVE) mg/dL Urine Occult Blood Trace (NEGATIVE) Urine Nitrite Negative (NEGATIVE) Urine Bilirubin Negative (NEGATIVE) Urine Urobilinogen Normal (NORMAL) mg/dL Ur Leukocyte Esterase Trace (NEGATIVE) Urine RBC 0-5 (0-5) Urine WBC 5-10 H (0-5) Ur Epithelial Cells Many Amorphous Sediment Not seen Urine Bacteria Moderate Urine Mucus Moderate 11/24/18 11/24/18 Range/Units 06:32 07:09 WBC (4.5-11.0) K/uL RBC (3.30-5.50) M/uL Hgb (12.0-15.0) g/dL Hct (36.0-48.0) % MCV (80-98) fL MCH (27-31) pg MCHC (32-36) % Plt Count (150-400) K/uL Neut % (Auto) (36-66) % Lymph % (Auto) (24-44) % [place] % (Auto) (2-6) % Eos % (Auto) (2-4) % Baso % (Auto) (0-1) % Sodium (140-148) mmol/L Potassium (3.6-5.2) mmol/L Chloride (100-108) mmol/L Carbon Dioxide (21-32) mmol/L Anion Gap (5.0-14.0) mmol/L BUN (7-18) mg/dL Creatinine (0.6-1.0) mg/dL Est Cr Clr Drug Dosing mL/min Estimated GFR (MDRD) (>60) Glucose (74-106) mg/dL Lactic Acid 1.8 (0.4-2.0) mmol/L Calcium (8.5-10.1) mg/dL Total Bilirubin (0.2-1.0) mg/dL AST (15-37) U/L ALT (12-78) U/L Alkaline Phosphatase (46-116) U/L Troponin I (0.000-0.056) ng/mL C-Reactive Protein 0.74 H (0.0-0.3) mg/dL Total Protein (6.4-8.2) g/dL Albumin (3.4-5.0) g/dL Globulin (2.3-3.5) g/dL Albumin/Globulin Ratio (1.2-2.2) Lipase (73-393) U/L Urine Color Urine Appearance Urine pH (4.5-8.0) Ur Specific [place] (1.008-1.030) Urine Protein (NEGATIVE) mg/dL Urine Glucose (UA) (NEGATIVE) mg/dL Urine Ketones (NEGATIVE) mg/dL Urine Occult Blood (NEGATIVE) Urine Nitrite (NEGATIVE) Urine Bilirubin (NEGATIVE) Urine Urobilinogen (NORMAL) mg/dL Ur Leukocyte Esterase (NEGATIVE) Urine RBC (0-5) Urine WBC (0-5) Ur Epithelial Cells Amorphous Sediment Urine Bacteria Urine Mucus Meds: Medications Generic Name Dose Route Start Last Admin Trade Name Cruzq PRN Reason Stop Dose Admin Lactated Ringer's 1,000 mls @ 999 mls/hr 11/24/18 06:15 11/24/18 06:31 Ringers, Lactated IV 999 mls/hr ASDIRECTED MONCHO Administration Sodium Chloride 80 mls @ 3.5 mls/sec 11/24/18 07:15 11/24/18 07:16 Normal Saline IV 3.5 mls/sec ASDIRECTED MONCHO Administration Sodium Chloride 1,000 mls @ 999 mls/hr 11/24/18 08:15 11/24/18 08:13 Normal Saline IV 999 mls/hr ASDIRECTED MONCHO Administration Iopamidol 132 ml 11/24/18 07:01 11/24/18 07:16 Isovue-300 (61%) IV 11/25/18 07:02 132 ml . DIRECTED PRN Administration RADIOLOGY EXAM Sodium Chloride 10 ml 11/24/18 06:14 11/24/18 06:35 Saline Flush FLUSH 10 ml ASDIRECTED PRN Administration Keep Vein Open Discontinued Medications Generic Name Dose Route Start Last Admin Trade Name Cruzq PRN Reason Stop Dose Admin Bisacodyl 10 mg 11/24/18 09:50 11/24/18 10:13 Dulcolax RECTAL 11/24/18 09:51 10 mg ONETIME ONE Administration Fentanyl 50 mcg 11/24/18 06:17 11/24/18 06:36 Sublimaze IVPUSH 11/24/18 06:18 50 mcg ONETIME ONE Administration Lorazepam 0.5 mg 11/24/18 08:25 11/24/18 08:39 Ativan IVPUSH 11/24/18 08:26 0.5 mg ONETIME ONE Administration Ondansetron HCl 4 mg 11/24/18 09:33 Zofran IVPUSH 11/24/18 09:34 ONETIME ONE Pantoprazole Sodium 40 mg 11/24/18 06:17 11/24/18 06:35 Protonix Iv IVPUSH 11/24/18 06:18 40 mg ONETIME ONE Administration Prochlorperazine Edisylate 5 mg 11/24/18 06:52 11/24/18 07:27 Compazine IVPUSH 11/24/18 06:53 5 mg ONETIME ONE Administration Quetiapine Fumarate 25 mg 11/24/18 09:30 11/24/18 10:12 Seroquel PO 11/24/18 09:31 25 mg ONETIME ONE Administration Sodium Chloride 10 ml 11/24/18 07:01 11/24/18 07:16 Saline Flush FLUSH 11/24/18 07:02 10 ml ONETIME ONE Administration Departure - Departure Disposition: Home, Self-Care 01 Clinical Impression: Dehydration, Ileus, Gastroenteritis - Discharge Information Referrals: Kiah Howard PA [Primary Care Provider] - Forms: ED Department Discharge Care Plan Goals: CLESR LIQUIDS, USE THE ZOFORAN SUBLING THAT SHE HAS AT HOME IF NEEDED, REFILL FOR 1 WEEK OF SEROQUEL. 100MG HS, FOLLOW UP APPT WITH Marie Howard IN 3-4 DAYS. - My Orders Last 24 Hours: My Active Orders 11/24/18 08:15 Sodium Chloride 0.9% [Normal Saline] 1,000 ml IV ASDIRECTED 11/24/18 10:15 CULTURE URINE [RM] Stat - Assessment/Plan Last 24 Hours: My Active Orders 11/24/18 08:15 Sodium Chloride 0.9% [Normal Saline] 1,000 ml IV ASDIRECTED 11/24/18 10:15 CULTURE URINE [RM] Stat <Essence Arciniega - Last Filed: 11/24/18 11:58> Course - Re-Assessments/Exams Free Text/Narrative Re-Assessment/Exam: 11/24/18 08:43 pt had a cat scan of the abdoman which did not show a acute process. 11/24/18 09:31 pt states she has been out of her seroquel for about 5-6 days. She has tried to get a refill but her provider has not responded. Will give her serquel 25 mg po now since she has been without the med. She is taking clear liquids at this time. Departure - Departure Time of Disposition: 11:55 Condition: Fair
[2018-11-24] MEDS ORDERED: Prochlorperazine 10 MG/2 ML SDV IVPUSH ONE (06:52)
[2018-11-24] MEDS ORDERED: Iopamidol 612 MG/ML 150 ML Bottle IV PRN (07:01)
[2018-11-24] MEDS ORDERED: Sodium Chloride 0.9% 10 ML Syringe FLUSH ONE (07:01)
[2018-11-24] MEDS ORDERED: Sodium Chloride 0.9% 80 ML IV SCH (07:15)
[2018-11-24] MEDS ORDERED: Sodium Chloride 0.9% 1,000 ML IV SCH (08:15)
[2018-11-24] MEDS ORDERED: LORazepam 2 MG/ML SDV IVPUSH ONE (08:25)
--- NOTE | 2018-11-24 09:08 | CR ---
Abdomen 1V Upright CLINICAL HISTORY: Abdominal pain, vomiting FINDINGS: There is some gaseous distention of transverse and left colon. Small intestinal gas pattern is nonacute. No free air is seen. There is some elevation of the left hemidiaphragm which is chronic. There has been previous cholecystectomy IMPRESSION: Gaseous distention of the transverse and left colon. Nonacute small intestinal gas pattern
[2018-11-24] MEDS ORDERED: QUEtiapine 25 MG Tab PO ONE (09:30)
[2018-11-24] MEDS ORDERED: Ondansetron 4 MG/2 ML SDV IVPUSH ONE (09:33)
[2018-11-24] MEDS ORDERED: Bisacodyl 10 MG Supp RECTAL ONE (09:50)
[2018-11-24 10:15] VITALS: BP 116/71
== END 2018-11-24 12:09 | disposition home or self-care (01) ==
LOC: JP.ED 05:39
DX: K52.9 Noninfective gastroenteritis and colitis, unspecified (principal); K56.7 Ileus, unspecified; J45.909 Unspecified asthma, uncomplicated; F41.9 Anxiety disorder, unspecified; F31.9 Bipolar disorder, unspecified; Z91.013 Allergy to seafood; Z88.6 Allergy status to analgesic agent; Z88.8 Allergy status to other drugs, medicaments and biological substances; Z88.1 Allergy status to other antibiotic agents
CPT/HCPCS: 36415; 74018; 74018-26; 74177; 80053; 81001; 83605; 83690; 84484; 85025; 86140; 87086; 96361; 96374; 96375; 99285-25; A9270-GY; C9113; J0780; J2060; J3010; J7030; J7120

== ENCOUNTER 2019-04-19 11:08 | Emergency (ER) | payer MEDICAID ==
[2019-04-19 11:21] VITALS: BP 129/75
--- NOTE | 2019-04-19 12:10 | EDM.PDOC ---
ED HPI GENERAL MEDICAL PROBLEM - General Chief Complaint: Abdominal Pain Stated Complaint: SHARP STOMACH PAIN Time Seen by Provider: 04/19/19 11:29 Source of Information: Reports: Patient History Limitations: Reports: No Limitations - History of Present Illness INITIAL COMMENTS - FREE TEXT/NARRATIVE: This lady comes in with left upper quadrant pain for the past 2 days. This used to recover to her back. This morning at about 3:30 she had a lot of pain and she spit up a little bit she has a little bit of diarrhea today she tried some Zofran and it helped a little while. Last night she had a temp up to 103. She had a lap Anton before but said a lot of times she gets gas in her stomach. Abdomen Pain Score (Numeric/FACES): 8 - Related Data Allergies Allergy/AdvReac Type Severity Reaction Status Date / Time tioconazole Allergy Severe Airway Verified 04/19/19 11:21 [From Monistat 1 Tightness (tioconazole)] shellfish derived Allergy Cannot Verified 04/19/19 11:21 Remember amoxicillin AdvReac Vomiting Verified 04/19/19 11:21 aspirin AdvReac Abdominal Verified 04/19/19 11:21 Pain ibuprofen AdvReac Abdominal Verified 04/19/19 11:21 Pain fish-derived products Allergy Other Uncoded 04/19/19 11:21 Home Meds: Home Meds Cholecalciferol (Vitamin D3) [Vitamin D3] 2,000 unit PO BEDTIME 04/04/14 [ History] Loratadine [Claritin RediTabs] 10 mg PO DAILY #30 tab.dis 04/27/15 [Rx] Pantoprazole [Protonix] 40 mg PO BEDTIME #30 tab.cr 04/27/15 [Rx] lamoTRIgine [Lamictal] 200 mg PO DAILY 05/02/16 [History] Fluticasone/Salmeterol [Advair 250-50 Diskus] 2 puff INH DAILY 03/21/18 [History ] QUEtiapine [SEROquel] 100 mg PO BEDTIME 03/21/18 [History] Past Medical History HEENT History: Reports: Sinusitis Other HEENT History: sinus infection Respiratory History: Reports: Asthma Gastrointestinal History: Reports: GERD Genitourinary History: Reports: UTI, Recurrent 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: Musculoskeletal History: Reports: Arthritis Neurological History: Reports: Seizure Psychiatric History: Reports: Anxiety, Bipolar, Learning Disability, PTSD Endocrine/Metabolic History: Reports: Hypothyroidism, Vitamin D Deficiency Hematologic History: Reports: B12 Deficiency, Iron Deficiency - Infectious Disease History Infectious Disease History: Reports: Chicken Pox - Past Surgical History Head Surgeries/Procedures: Reports: None HEENT Surgical History: Reports: None Cardiovascular Surgical History: Reports: None GI Surgical History: Reports: Cholecystectomy, EGD, Esophageal Dilatation, Willi Fundoplication Female Surgical History: Reports: Tubal Ligation Neurological Surgical History: Reports: None Musculoskeletal Surgical History: Reports: Carpal Tunnel Dermatological Surgical History: Reports: None Social & Family History - Family History Family Medical History: Noncontributory Cardiac: Reports: Arrhythmia, Prior Cardiac Arrest OBGYN: Reports: Neurological: Reports: CVA - Tobacco Use Smoking Status *Q: Former Smoker Used Tobacco, but Quit: Yes Month/Year Tobacco Last Used: 25 - Caffeine Use Caffeine Use: Reports: Tea - Recreational Drug Use Recreational Drug Use: No ED ROS GENERAL - Review of Systems Review Of Systems: See Below Constitutional: Reports: Fever HEENT: Reports: No Symptoms Respiratory: Reports: No Symptoms Cardiovascular: Reports: No Symptoms Endocrine: Reports: No Symptoms GI/Abdominal: Reports: Abdominal Pain, Nausea : Reports: No Symptoms ED EXAM, GI/ABD - Physical Exam Exam: See Below Exam Limited By: No Limitations General Appearance: Alert, No Apparent Distress, Obese Eyes: Bilateral: Normal Appearance Throat/Mouth: Normal Inspection Respiratory/Chest: Lungs Clear Cardiovascular: Regular Rate, Rhythm, No Murmur GI/Abdominal Exam: Normal Bowel Sounds, Soft, Distended (There is a little bit of distention in the upper abdomen which feels like she might have a lot of air in the stomach. Does not feel like she is obstructed) Back Exam: Normal Inspection Extremities: Normal Inspection Course - Vital Signs Last Recorded V/S: Last Vital Signs Temp 37.1 C 04/19/19 11:19 Pulse 96 04/19/19 11:19 Resp 16 04/19/19 11:19 BP 129/75 04/19/19 11:19 Pulse Ox 98 04/19/19 11:19 Departure - Departure Time of Disposition: 12:09 Disposition: Home, Self-Care 01 Condition: Fair Clinical Impression: Abdominal pain - Discharge Information Referrals: Kiah Howard PA [Primary Care Provider] - Additional Instructions: You appear to have a lot of gas in the stomach or possibly even the large intestine. Use simethicone or Gas-X for this. Just follow package instructions. Use Zofran if needed. If needed you can use some of the Lomotil that you are to have
== END 2019-04-19 12:18 | disposition home or self-care (01) ==
LOC: JP.ED 11:08
DX: R10.9 Unspecified abdominal pain (principal); K21.9 Gastro-esophageal reflux disease without esophagitis; F31.9 Bipolar disorder, unspecified; F41.9 Anxiety disorder, unspecified; Z79.899 Other long term (current) drug therapy; Z88.6 Allergy status to analgesic agent; Z88.1 Allergy status to other antibiotic agents; Z91.013 Allergy to seafood; Z88.8 Allergy status to other drugs, medicaments and biological substances
CPT/HCPCS: 99283

== ENCOUNTER 2019-04-20 06:31 | Emergency (ER) | payer MEDICAID ==
--- NOTE | 2019-04-20 07:27 | EDM.PDOC ---
ED HPI GENERAL MEDICAL PROBLEM - General Chief Complaint: Abdominal Pain Stated Complaint: pain in stomach area nausa Time Seen by Provider: 04/20/19 07:05 Source of Information: Reports: Patient History Limitations: Reports: No Limitations - History of Present Illness INITIAL COMMENTS - FREE TEXT/NARRATIVE: 38-year-old female who was had abdominal pain for the last 5 days, had a fever initially and the pain started on her right flank. It is now on the left flank. It is persistent, she also has nausea and vomiting and had emesis at 4:30 this morning. No fevers for the past 4 days. She was in the emergency room yesterday and was diagnosed with functional bowel pain, no workup done. Onset: Unknown/Unsure Duration: Day(s): (Symptoms for 5 days) Location: Reports: Abdomen, Back (Bilateral flank, worse on the left) Left Lower Abdominal Pain Score (Numeric/FACES): 10 - Related Data Allergies Allergy/AdvReac Type Severity Reaction Status Date / Time tioconazole Allergy Severe Airway Verified 04/20/19 07:08 [From Monistat 1 Tightness (tioconazole)] shellfish derived Allergy Cannot Verified 04/20/19 07:08 Remember amoxicillin AdvReac Vomiting Verified 04/20/19 07:08 aspirin AdvReac Abdominal Verified 04/20/19 07:08 Pain ibuprofen AdvReac Abdominal Verified 04/20/19 07:08 Pain fish-derived products Allergy Other Uncoded 04/19/19 11:21 Home Meds: Home Meds Cholecalciferol (Vitamin D3) [Vitamin D3] 2,000 unit PO BEDTIME 04/04/14 [ History] Loratadine [Claritin RediTabs] 10 mg PO DAILY #30 tab.dis 04/27/15 [Rx] Pantoprazole [Protonix] 40 mg PO BEDTIME #30 tab.cr 04/27/15 [Rx] lamoTRIgine [Lamictal] 200 mg PO DAILY 05/02/16 [History] Fluticasone/Salmeterol [Advair 250-50 Diskus] 2 puff INH DAILY 03/21/18 [History ] QUEtiapine [SEROquel] 100 mg PO BEDTIME 03/21/18 [History] Past Medical History HEENT History: Reports: Sinusitis Other HEENT History: sinus infection Respiratory History: Reports: Asthma Gastrointestinal History: Reports: GERD Genitourinary History: Reports: UTI, Recurrent SEARCH LEAD History: Reports: Musculoskeletal History: Reports: Arthritis Neurological History: Reports: Seizure Psychiatric History: Reports: Anxiety, Bipolar, Learning Disability, PTSD Endocrine/Metabolic History: Reports: Hypothyroidism, Vitamin D Deficiency Hematologic History: Reports: B12 Deficiency, Iron Deficiency - Infectious Disease History Infectious Disease History: Reports: Chicken Pox - Past Surgical History GI Surgical History: Reports: Cholecystectomy, EGD, Esophageal Dilatation, Willi Fundoplication Female Surgical History: Reports: Tubal Ligation Musculoskeletal Surgical History: Reports: Carpal Tunnel Social & Family History - Family History Family Medical History: Noncontributory Cardiac: Reports: Arrhythmia, Prior Cardiac Arrest OBGYN: Reports: Neurological: Reports: CVA - Tobacco Use Smoking Status *Q: Never Smoker - Caffeine Use Caffeine Use: Reports: Tea - Recreational Drug Use Recreational Drug Use: No ED ROS GENERAL - Review of Systems Review Of Systems: See Below Constitutional: Reports: Fever (5 days ago, none over the past 4 days), Malaise HEENT: Reports: No Symptoms Respiratory: Denies: Shortness of Breath Cardiovascular: Reports: Chest Pain (Had some substernal chest discomfort in the lobby while waiting to be evaluated) GI/Abdominal: Reports: Abdominal Pain, Nausea, Vomiting. Denies: Diarrhea : Denies: Dysuria Skin: Reports: No Symptoms ED EXAM, GI/ABD - Physical Exam Exam: See Below Exam Limited By: No Limitations General Appearance: Alert, No Apparent Distress Eyes: Bilateral: Normal Appearance Respiratory/Chest: No Respiratory Distress, Lungs Clear Cardiovascular: Regular Rate, Rhythm GI/Abdominal Exam: Normal Bowel Sounds, Soft, Other (Some tenderness to palpation, mostly across the upper abdomen and epigastric area and left upper quadrant, no guarding) Neurological: Alert, Oriented Psychiatric: Normal Affect, Normal Mood Skin Exam: Warm, Dry Course - Vital Signs Last Recorded V/S: Last Vital Signs Temp 96.2 F 04/20/19 07:06 Pulse 71 04/20/19 08:56 Resp 14 04/20/19 08:56 BP 106/60 04/20/19 08:56 Pulse Ox 97 04/20/19 08:56 - Orders/Labs/Meds Orders: Active Orders 24 hr Category Date Time Status Abdomen Pelvis wo Cont [CT] Stat Exams 04/20/19 08:46 Taken Labs: Laboratory Tests 04/20/19 04/20/19 Range/Units 07:31 07:31 WBC 6.8 (4.5-11.0) K/uL RBC 4.52 (3.30-5.50) M/uL Hgb 13.4 (12.0-15.0) g/dL Hct 40.4 (36.0-48.0) % MCV 89 (80-98) fL MCH 30 (27-31) pg MCHC 33 (32-36) % Plt Count 311 (150-400) K/uL Neut % (Auto) 74 H (36-66) % Lymph % (Auto) 18 L (24-44) % Stanley % (Auto) 6 (2-6) % Eos % (Auto) 1 L (2-4) % Baso % (Auto) 0 (0-1) % Sodium 142 (140-148) mmol/L Potassium 3.3 L (3.6-5.2) mmol/L Chloride 103 (100-108) mmol/L Carbon Dioxide 30 (21-32) mmol/L Anion Gap 12.3 (5.0-14.0) mmol/L BUN 5 L D (7-18) mg/dL Creatinine 0.8 (0.6-1.0) mg/dL Est Cr Clr Drug Dosing 87.51 mL/min Estimated GFR (MDRD) > 60 (>60) Glucose 99 (74-106) mg/dL Calcium 8.3 L (8.5-10.1) mg/dL Total Bilirubin 0.6 (0.2-1.0) mg/dL AST 12 L D (15-37) U/L ALT 18 (12-78) U/L Alkaline Phosphatase 48 (46-116) U/L Total Protein 6.9 (6.4-8.2) g/dL Albumin 3.4 (3.4-5.0) g/dL Globulin 3.5 (2.3-3.5) g/dL Albumin/Globulin Ratio 1.0 L (1.2-2.2) Lipase 102 (73-393) U/L - Re-Assessments/Exams Free Text/Narrative Re-Assessment/Exam: 04/20/19 07:27 CBC, CMP and lipase were obtained. 04/20/19 08:41 Labs returned normal. 04/20/19 10:27 CT scan is negative. Patient remained relatively asymptomatic while in the emergency room. She was reassured, encouraged to continue her regular medications and recheck in 2-3 days if not improving. Departure - Departure Time of Disposition: 10:49 Disposition: Home, Self-Care 01 Clinical Impression: Abdominal pain Qualifiers: Abdominal location: left upper quadrant Qualified Code(s): R10.12 - Left upper quadrant pain - Discharge Information Instructions: Abdominal Pain, Adult, [id number] Referrals: Kiah Howard PA [Primary Care Provider] - Forms: ED Department Discharge Care Plan Goals: Continue your current medications, increase diet and activity as tolerated and consider rechecking in 3-4 days if not improving satisfactorily. - My Orders Last 24 Hours: My Active Orders 04/20/19 08:46 Abdomen Pelvis wo Cont [CT] Stat - Assessment/Plan Last 24 Hours: My Active Orders 04/20/19 08:46 Abdomen Pelvis wo Cont [CT] Stat
[2019-04-20 09:57] VITALS: BP 106/60
--- NOTE | 2019-04-20 11:37 | CT ---
Abdomen Pelvis wo Cont: 04/20/2019 9:32 AM INDICATION: left flank pain 5 days COMPARISON: Previous CT performed on 11/24/2018. TECHNIQUE: Axial images were obtained through the abdomen and pelvis without the use of of intravenous contrast. Coronal and sagittal reformats were obtained and reviewed. FINDINGS: Lower thorax: Visualized portions are within normal limits. Liver: Unremarkable. Gallbladder/biliary: Cholecystectomy Spleen: Calcified granulomas. Otherwise unremarkable Adrenal glands: Unremarkable. Kidneys: Unremarkable. Stomach: Postsurgical changes at the gastroesophageal junction. Duodenum and small bowel: Unremarkable. No findings to suggest obstruction.. Colon: Unremarkable. Appendix: Unremarkable. Pancreas: Unremarkable. Vascular structures: Unremarkable.. Peritoneum: Unremarkable. No ascites or pneumoperitoneum. No pathologically enlarged intra-abdominal lymph nodes. Retroperitoneum: Unremarkable. No pathologically enlarged retroperitoneal lymph nodes. Reproductive structures: Bulky appearance of the uterus is again noted, likely reflecting leiomyomatous change. Small follicles are present in both ovaries. Urinary bladder: Unremarkable but incompletely distended. Pelvic sidewall: Unremarkable. No lymphadenopathy. Inguinal regions: Unremarkable. Osseous structures: Unremarkable. No acute osseous abnormalities or aggressive osseous lesions. IMPRESSION: 1. No acute findings in the abdomen or pelvis to account for the patient's symptoms. 2. Other ancillary findings as detailed above.
== END 2019-04-20 10:49 | disposition home or self-care (01) ==
LOC: JP.ED 06:31
DX: R10.12 Left upper quadrant pain (principal); R10.32 Left lower quadrant pain; R10.13 Epigastric pain; R11.2 Nausea with vomiting, unspecified; K21.9 Gastro-esophageal reflux disease without esophagitis; M19.90 Unspecified osteoarthritis, unspecified site; Z90.49 Acquired absence of other specified parts of digestive tract; Z98.51 Tubal ligation status; Z88.1 Allergy status to other antibiotic agents; Z88.6 Allergy status to analgesic agent; Z91.013 Allergy to seafood; Z88.8 Allergy status to other drugs, medicaments and biological substances; Z79.899 Other long term (current) drug therapy
CPT/HCPCS: 36415; 74176; 74176-26; 80053; 83690; 85025; 99284-25

== ENCOUNTER 2021-02-13 19:44 | Emergency (ER) | payer MEDICAID ==
[2021-02-13 19:55] VITALS: BP 155/93; PULSE 105
--- NOTE | 2021-02-13 20:34 | EDM.PDOC ---
ED HPI GENERAL MEDICAL PROBLEM - General Chief Complaint: Eye Problems Stated Complaint: ITCHING/EYE PAIN Time Seen by Provider: 02/13/21 20:21 Source of Information: Reports: Patient, Family, RN Notes Reviewed History Limitations: Reports: No Limitations - History of Present Illness INITIAL COMMENTS - FREE TEXT/NARRATIVE: 40-year-old female presents emergency department day complaint of itchiness excessive tearing and mattering in the morning of both eyes. She does admit she has exposure to hay and animals does take antihistamines but has been really bothering her eyes over the last week or so no fevers no difficulty with vision - Related Data Allergies Allergy/AdvReac Type Severity Reaction Status Date / Time tioconazole Allergy Severe Airway Verified 02/13/21 20:07 [From Monistat 1 Tightness (tioconazole)] shellfish derived Allergy Cannot Verified 02/13/21 20:07 Remember amoxicillin AdvReac Vomiting Verified 02/13/21 20:07 aspirin AdvReac Abdominal Verified 02/13/21 20:07 Pain ibuprofen AdvReac Abdominal Verified 02/13/21 20:07 Pain fish-derived products Allergy Other Uncoded 02/13/21 20:07 Home Meds: Home Meds Cholecalciferol (Vitamin D3) [Vitamin D3] 2,000 unit PO BEDTIME 04/04/14 [History] Loratadine [Claritin RediTabs] 10 mg PO DAILY #30 tab.dis 04/27/15 [Rx] Pantoprazole [Protonix] 40 mg PO BEDTIME #30 tab.cr 04/27/15 [Rx] lamoTRIgine [Lamictal] 300 mg PO DAILY 05/02/16 [History] Fluticasone Propion/Salmeterol [Advair 250-50 Diskus] 2 puff INH DAILY PRN 03/21/18 [History] QUEtiapine [SEROquel] 125 mg PO BEDTIME 03/21/18 [History] Alcaftadine [Lastacaft] 3 ml OP DAILY #1 drops 02/13/21 [Rx] Past Medical History HEENT History: Reports: Impaired Vision, Sinusitis Other HEENT History: sinus infection Respiratory History: Reports: Asthma Gastrointestinal History: Reports: GERD Genitourinary History: Reports: UTI, Recurrent [employer]ST History: Reports: Musculoskeletal History: Reports: Arthritis Neurological History: Reports: Seizure Psychiatric History: Reports: Anxiety, Bipolar, Learning Disability, PTSD Endocrine/Metabolic History: Reports: Hypothyroidism, Vitamin D Deficiency Hematologic History: Reports: B12 Deficiency, Iron Deficiency - Infectious Disease History Infectious Disease History: Reports: Chicken Pox - Past Surgical History Head Surgeries/Procedures: Reports: None HEENT Surgical History: Reports: None Other HEENT Surgeries/Procedures: dental issues Cardiovascular Surgical History: Reports: None GI Surgical History: Reports: Cholecystectomy, EGD, Esophageal Dilatation, Willi Fundoplication Other GI Surgeries/Procedures: Willi Female Surgical History: Reports: Tubal Ligation Endocrine Surgical History: Reports: None Neurological Surgical History: Reports: None Musculoskeletal Surgical History: Reports: Carpal Tunnel Dermatological Surgical History: Reports: None Social & Family History - Family History Family Medical History: No Pertinent Family History Cardiac: Reports: Arrhythmia, Prior Cardiac Arrest OBGYN: Reports: Neurological: Reports: CVA - Tobacco Use Tobacco Use Status *Q: Never Tobacco User Second Hand Smoke Exposure: No - Caffeine Use Caffeine Use: Reports: None - Recreational Drug Use Recreational Drug Use: Yes ED ROS GENERAL - Review of Systems Review Of Systems: See Below Constitutional: Reports: No Symptoms HEENT: Reports: Eye Discharge. Denies: Eye Pain ED EXAM GENERAL W FULL EYE - Physical Exam Exam: See Below Exam Limited By: No Limitations General Appearance: Alert, WD/WN, No Apparent Distress Eye Exam: Bilateral Eye: EOMI, Normal Inspection, PERRL Visual Acuity (R) 20/: 20 Visual Acuity (L) 20/: 20 Eyelids: Bilateral: Normal Appearance Conjunctiva & Sclera: Bilateral: Normal Appearance Cornea Exam: Bilateral: Normal Appearance Course - Vital Signs Last Recorded V/S: Last Vital Signs Temp 97.9 F 02/13/21 20:10 Pulse 105 H 02/13/21 20:10 Resp 18 02/13/21 20:10 BP 155/93 H 02/13/21 20:10 Pulse Ox 99 02/13/21 20:10 Departure - Departure Time of Disposition: 20:33 Disposition: Home, Self-Care 01 Condition: Fair Clinical Impression: Allergic conjunctivitis Qualifiers: Laterality: bilateral Qualified Code(s): H10.13 - Acute atopic conjunctivitis, bilateral - Discharge Information Prescriptions: Alcaftadine [Lastacaft] 3 ml OP DAILY #1 drops Instructions: Allergic Conjunctivitis, Adult, [id number] Referrals: Kiah Howard PA [Primary Care Provider] - Additional Instructions: The medication has been faxed to [facility] try this once a day see if you get improvement in knee eye symptoms, please followup with your primary care provider in 3-5 days if not better, please call return to the emergency department with worsening of symptoms. Sepsis Event Note (ED) - Evaluation Sepsis Screening Result: No Definite Risk - Focused Exam Vital Signs: Vital Signs Temp Pulse Resp BP Pulse Ox 02/13/21 20:10 97.9 F 105 H 18 155/93 H 99 02/13/21 19:53 97.9 F 105 H 18 155/93 H 99 - Assessment/Plan Plan: Assessment Acuity = acute Site and laterality = allergic conjunctivitis Etiology = probably related to hay and animal dander Manifestations = none Location of injury = Home Lab values = none Plan Prescription written for lastacraft one bottle she will try this as needed follow-up with primary care in the next 3 to 5 days if no improvement This note was dictated using [employer] voice recognition software please call with any questions on syntax or grammar.
== END 2021-02-13 20:47 | disposition home or self-care (01) ==
LOC: JP.ED 19:44
DX: H10.13 Acute atopic conjunctivitis, bilateral (principal); J45.909 Unspecified asthma, uncomplicated; K21.9 Gastro-esophageal reflux disease without esophagitis; R56.9 Unspecified convulsions; Z88.1 Allergy status to other antibiotic agents; Z91.013 Allergy to seafood; Z88.0 Allergy status to penicillin; Z88.6 Allergy status to analgesic agent; Z79.899 Other long term (current) drug therapy
CPT/HCPCS: 99282; 99283

== ENCOUNTER 2021-08-29 06:23 | Day surgery (SDC) | payer MEDICAID ==
[2021-08-29 06:50] VITALS: BP 132/84; PULSE 99
[2021-08-29] MEDS ORDERED: Sodium Chloride 0.9% 1,000 ML IV SCH (07:00)
[2021-08-29] MEDS ORDERED: Bacitracin Oint 1 GM U/D Packet ONE (07:06)
[2021-08-29] MEDS ORDERED: Bupivacaine 0.5% 50 ML MDV ONE (07:06)
[2021-08-29] MEDS ORDERED: Lidocaine 1% with EPINEPHrine 1:100,000 50 ML MDV ONE (07:06)
[2021-08-29] MEDS ORDERED: fentaNYL 100 MCG/2 ML SDV ONE (07:08)
[2021-08-29] MEDS ORDERED: Propofol 200 MG/20 ML SDV ONE (07:08)
[2021-08-29] MEDS ORDERED: Midazolam 1 MG/ML 2 ML SDV ONE (07:08)
[2021-08-29] MEDS ORDERED: ceFAZolin 2 GM in Premix Bag 1 BAG IV ONE (07:30)
== END 2021-08-29 08:11 | disposition home or self-care (01) ==
LOC: JP.SDS 06:23
PROVIDERS: ATTEND Surgery
DX: N60.01 Solitary cyst of right breast (principal); Z53.09 Procedure and treatment not carried out because of other contraindication
CPT/HCPCS: J2250; J2704; J3010; J3490; J7030

== ENCOUNTER 2022-01-24 11:26 | Emergency (ER) | payer OTHER, MEDICAID ==
[2022-01-24 12:13] VITALS: BP 126/77; PULSE 84
[2022-01-24] MEDS ORDERED: Ketorolac 30 MG/ML SDV IM ONE (12:42)
== END 2022-01-24 15:18 | disposition home or self-care (01) ==
LOC: JP.ED 11:26
DX: S20.212A Contusion of left front wall of thorax, initial encounter (principal); S80.01XA Contusion of right knee, initial encounter; Z88.0 Allergy status to penicillin; Z88.8 Allergy status to other drugs, medicaments and biological substances; Z91.013 Allergy to seafood; V89.2XXA Person injured in unspecified motor-vehicle accident, traffic, initial encounter; Y92.410 Unspecified street and highway as the place of occurrence of the external cause
CPT/HCPCS: 71046; 71046-26; 73562-26-RT; 73562-RT; 96372; 99282; 99284-25; J1885

== ENCOUNTER 2022-03-18 14:58 | Emergency (ER) | payer MEDICAID ==
[2022-03-18 15:14] VITALS: BP 127/82; PULSE 89
== END 2022-03-18 17:30 | disposition home or self-care (01) ==
LOC: JP.ED 14:58
DX: H53.2 Diplopia (principal); R20.2 Paresthesia of skin; R26.89 Other abnormalities of gait and mobility; K21.9 Gastro-esophageal reflux disease without esophagitis; Z87.820 Personal history of traumatic brain injury; Z79.899 Other long term (current) drug therapy; Z88.1 Allergy status to other antibiotic agents; Z91.013 Allergy to seafood; Z88.0 Allergy status to penicillin; Z88.6 Allergy status to analgesic agent
CPT/HCPCS: 36415; 70450; 80048; 84146; 84443; 85025; 85651; 86140; 99283; 99285-25

== ENCOUNTER 2022-04-10 17:40 | Emergency (ER) | payer MEDICAID ==
[2022-04-10] MEDS ORDERED: methylPREDNISolone Sodium Succinate 125 MG/2 ML SDV IM ONE (17:55)
[2022-04-10] MEDS ORDERED: Famotidine 20 MG/2 ML SDV IVPUSH ONE (17:55)
[2022-04-10] MEDS ORDERED: EPINEPHrine 1 MG/ML SDV IM ONE (17:56)
[2022-04-10] MEDS ORDERED: Sodium Chloride 0.9% 10 ML Syringe FLUSH PRN (17:56)
[2022-04-10] MEDS ORDERED: Sodium Chloride 0.9% 1,000 ML IV SCH (18:00)
[2022-04-10 18:22] VITALS: BP 134/89; PULSE 113
== END 2022-04-10 19:35 | disposition home or self-care (01) ==
LOC: JP.ED 17:40
DX: S80.01XA Contusion of right knee, initial encounter (principal); G35 Multiple sclerosis; H53.2 Diplopia; R26.89 Other abnormalities of gait and mobility; E03.9 Hypothyroidism, unspecified; K21.9 Gastro-esophageal reflux disease without esophagitis; Z88.0 Allergy status to penicillin; Z91.013 Allergy to seafood; Z88.8 Allergy status to other drugs, medicaments and biological substances; Z79.899 Other long term (current) drug therapy; W18.30XA Fall on same level, unspecified, initial encounter
CPT/HCPCS: 99283

== ENCOUNTER 2022-04-15 17:33 | Emergency (ER) | payer MEDICAID ==
[2022-04-15] MEDS ORDERED: Lactated Ringers 1,000 ML IV ONE (19:01)
[2022-04-15] MEDS ORDERED: Sodium Chloride 0.9% 10 ML Syringe FLUSH PRN (19:01)
[2022-04-15] MEDS ORDERED: Potassium Chloride 20 MEQ Tab.ER PO ONE (19:47)
[2022-04-15] MEDS ORDERED: methylPREDNISolone Sodium Succinate 125 MG/2 ML SDV IVPUSH ONE (20:53)
[2022-04-15] MEDS ORDERED: NS + KCl 20mEq/L 1,000 ML IV SCH (21:00)
[2022-04-15 22:48] VITALS: BP 126/71; PULSE 81
[2022-04-16] MEDS ORDERED: Potassium Chloride 20 MEQ Tab.ER PO ONE
== END 2022-04-16 00:36 | disposition home or self-care (01) ==
LOC: JP.ED 17:33
DX: G35 Multiple sclerosis (principal); R53.1 Weakness; E87.6 Hypokalemia; G93.9 Disorder of brain, unspecified; R70.0 Elevated erythrocyte sedimentation rate; R26.89 Other abnormalities of gait and mobility; K21.9 Gastro-esophageal reflux disease without esophagitis; Z91.013 Allergy to seafood; Z88.0 Allergy status to penicillin; Z88.8 Allergy status to other drugs, medicaments and biological substances; Z79.899 Other long term (current) drug therapy; Z87.820 Personal history of traumatic brain injury
CPT/HCPCS: 36415; 80048; 81001; 84439; 84443; 84484; 85025; 85651; 93005; 93010; 96361; 96365; 96366; 96375; 99283; 99285; A9270; J2930; J3480; J3490; J7120

== ENCOUNTER 2023-01-28 10:42 | Emergency (ER) | payer MEDICAID ==
[2023-01-28] MEDS ORDERED: Lactated Ringers 1,000 ML IV ONE (11:23)
[2023-01-28 12:17] LABS: ESTIMATED GFR 109 mL/min (>60)
[2023-01-28 12:30] VITALS: BP 117/66; PULSE 77
[2023-01-28 12:45] LABS: CORONAVIRUS COVID-19 NAA NEGATIVE (NEGATIVE)
== END 2023-01-28 13:06 | disposition home or self-care (01) ==
LOC: JP.ED 10:42
DX: K52.9 Noninfective gastroenteritis and colitis, unspecified (principal); Z91.013 Allergy to seafood; Z88.0 Allergy status to penicillin; Z88.6 Allergy status to analgesic agent; Z79.899 Other long term (current) drug therapy; Z90.49 Acquired absence of other specified parts of digestive tract; Z87.891 Personal history of nicotine dependence; Z20.822 Contact with and (suspected) exposure to COVID-19
CPT/HCPCS: 0241U; 36415; 80053; 83605; 85025; 96360; 99284; J7120

== ENCOUNTER 2023-02-28 09:36 | Emergency (ER) | payer MEDICAID ==
[2023-02-28] MEDS ORDERED: Sodium Chloride 0.9% 10 ML Syringe FLUSH PRN (10:52)
[2023-02-28] MEDS ORDERED: droPERidol 5 MG/2 ML SDV IVPUSH ONE (10:53)
[2023-02-28] MEDS ORDERED: Lactated Ringers 1,000 ML IV SCH (11:00)
[2023-02-28 11:12] LABS: BASOPHILS ABSOLUTE AUTO 0.09 K/uL (0.00-0.10); BASOPHILS PERCENT AUTO 0.8 % (0.1-1.3); EOSINOPHILS PERCENT AUTO 0.2 % (0.0-5.4); HEMATOCRIT 35.9 % (34.3-46.0); HEMOGLOBIN 12.1 g/dL (11.2-15.5); IMMATURE GRAN ABSOLUTE AUTO 0.05 K/uL (0.00-0.23); IMMATURE GRAN PERCENT AUTO 0.4 % (0.0-0.7); LYMPHOCYTES ABSOLUTE AUTO 0.67 K/uL (0.8-3.3); LYMPHOCYTES PERCENT AUTO 5.7 % (11.4-47.7); MEAN CORPUSCULAR HEMOGLOBIN 30.6 pg (31.6-35.5); MEAN CORPUSCULAR HGB CONC 33.7 g/dL (31.6-35.5); MEAN CORPUSCULAR VOLUME 90.9 fL (81.4-99.0); MONOCYTES ABSOLUTE AUTO 0.96 K/uL (0.20-0.90); MONOCYTES PERCENT AUTO 8.2 % (3.3-12.6); NEUTROPHILS ABSOLUTE AUTO 9.89 K/uL (1.0-7.6); NEUTROPHILS PERCENT AUTO 84.7 % (40.0-78.1); PLATELET COUNT,PLT 309 K/uL (130-375); RED BLOOD CELL COUNT 3.95 M/uL (3.77-5.24); WHITE BLOOD CELL COUNT,WBC 11.7 K/uL (3.2-11.0)
[2023-02-28 11:13] LABS: EOSINOPHILS ABSOLUTE AUTO 0.02 K/uL (0.00-0.40)
[2023-02-28 11:19] VITALS: PULSE 86
[2023-02-28 11:35] LABS: A/G RATIO 1.1 (1.2-2.2); ALANINE AMINOTRANSFERASE,ALT 166 U/L (12-78); ALBUMIN 3.3 g/dL (3.4-5.0); ALKALINE PHOSPHATASE 35 U/L (46-116); ASPARTATE AMNIOTRANSFERASE,AST 139 U/L (15-37); BILIRUBIN TOTAL 1.2 mg/dL (0.2-1.0); BLOOD UREA NITROGEN,BUN 21 mg/dL (7-18); CARBON DIOXIDE,CO2 29 mmol/L (21-32); EST CRCL DRUG DOSING (CG) 67.21 mL/min; ESTIMATED GFR 71 mL/min (>60); GLUCOSE RANDOM 86 mg/dL (74-106); LIPASE 124 U/L (73-393); PROTEIN TOTAL,TP 6.3 g/dL (6.4-8.2); SODIUM,NA 133 mmol/L (140-148); TROPONIN I HIGH SENSITIVITY 7.4 pg/mL (<=60.3)
[2023-02-28 11:41] LABS: ANION GAP 14.2 mmol/L (5.0-14.0); CHLORIDE,CL 92 mmol/L (100-108)
[2023-02-28 11:53] LABS: POTASSIUM,K 2.2 mmol/L (3.6-5.2)
[2023-02-28] MEDS ORDERED: Potassium Chloride 20 MEQ in Premix Bag 1 BAG IV ONE (11:58)
[2023-02-28] MEDS ORDERED: Potassium Chloride 20 MEQ Tab.ER PO ONE (11:58)
[2023-02-28 15:04] VITALS: BP 119/69
== END 2023-02-28 15:16 | disposition home or self-care (01) ==
LOC: JP.ED 09:36
DX: E87.6 Hypokalemia (principal); J45.909 Unspecified asthma, uncomplicated; K21.9 Gastro-esophageal reflux disease without esophagitis; Z88.0 Allergy status to penicillin; Z91.013 Allergy to seafood; Z88.8 Allergy status to other drugs, medicaments and biological substances; Z79.899 Other long term (current) drug therapy
CPT/HCPCS: 36415; 80053; 83605; 83690; 84132; 84484; 85025; 96361; 96365; 96366; 96375; 99283; 99284; A9270; J1790; J3480; J3490; J7120

== ENCOUNTER 2023-03-24 16:08 | Emergency (ER) | payer MEDICAID ==
[2023-03-24 18:01] VITALS: BP 130/83; PULSE 90
[2023-03-24] MEDS ORDERED: predniSONE 20 MG Tab PO ONE (18:13)
== END 2023-03-24 18:47 | disposition home or self-care (01) ==
LOC: JP.ED 16:08
DX: M54.2 Cervicalgia (principal); G35 Multiple sclerosis; J45.909 Unspecified asthma, uncomplicated; K21.9 Gastro-esophageal reflux disease without esophagitis; M19.90 Unspecified osteoarthritis, unspecified site; Z88.8 Allergy status to other drugs, medicaments and biological substances; Z88.0 Allergy status to penicillin; Z88.6 Allergy status to analgesic agent; Z91.013 Allergy to seafood; Z79.899 Other long term (current) drug therapy
CPT/HCPCS: 99283; J7512

== ENCOUNTER 2023-03-28 12:50 | Emergency (ER) | payer MEDICAID ==
[2023-03-28 13:05] VITALS: BP 134/85; PULSE 141
== END 2023-03-28 14:40 | disposition left against medical advice (07) ==
LOC: JP.ED 12:50
DX: Z53.21 Procedure and treatment not carried out due to patient leaving prior to being seen by health care provider (principal)

== ENCOUNTER 2023-04-18 13:30 | Emergency (ER) | payer MEDICAID ==
[2023-04-18 21:57] VITALS: BP 110/71; PULSE 87
== END 2023-04-18 22:10 | disposition home or self-care (01) ==
LOC: JP.ED 13:30
DX: D64.9 Anemia, unspecified (principal); J45.909 Unspecified asthma, uncomplicated; K21.9 Gastro-esophageal reflux disease without esophagitis; Z87.891 Personal history of nicotine dependence; Z91.013 Allergy to seafood; Z88.0 Allergy status to penicillin; Z88.6 Allergy status to analgesic agent; Z88.8 Allergy status to other drugs, medicaments and biological substances; Z79.899 Other long term (current) drug therapy
CPT/HCPCS: 36415; 36430; 82272; 86850; 86900; 86901; 86920; 86922; 99284; P9016

== ENCOUNTER 2023-05-07 15:00 | Inpatient (IN) | payer MEDICAID ==
[2023-05-07] MEDS ORDERED: Sodium Chloride 0.9% 1,000 ML IV SCH ×2 (16:15→18:08)
[2023-05-07 16:38] LABS: BASOPHILS ABSOLUTE AUTO 0.05 K/uL (0.00-0.10); BASOPHILS PERCENT AUTO 0.5 % (0.1-1.3); EOSINOPHILS ABSOLUTE AUTO 0.06 K/uL (0.00-0.40); EOSINOPHILS PERCENT AUTO 0.6 % (0.0-5.4); HEMATOCRIT 21.2 % (34.3-46.0); IMMATURE GRAN ABSOLUTE AUTO 0.09 K/uL (0.00-0.23); IMMATURE GRAN PERCENT AUTO 0.8 % (0.0-0.7); LYMPHOCYTES ABSOLUTE AUTO 0.84 K/uL (0.8-3.3); LYMPHOCYTES PERCENT AUTO 7.9 % (11.4-47.7); MEAN CORPUSCULAR HEMOGLOBIN 25.9 pg (31.6-35.5); MEAN CORPUSCULAR HGB CONC 31.1 g/dL (31.6-35.5); MEAN CORPUSCULAR VOLUME 83.1 fL (81.4-99.0); MONOCYTES ABSOLUTE AUTO 0.41 K/uL (0.20-0.90); MONOCYTES PERCENT AUTO 3.8 % (3.3-12.6); NEUTROPHILS ABSOLUTE AUTO 9.23 K/uL (1.0-7.6); NEUTROPHILS PERCENT AUTO 86.4 % (40.0-78.1); PLATELET COUNT,PLT 778 K/uL (130-375); RED BLOOD CELL COUNT 2.55 M/uL (3.77-5.24); WHITE BLOOD CELL COUNT,WBC 10.7 K/uL (3.2-11.0)
[2023-05-07 16:41] LABS: HEMOGLOBIN 6.6 g/dL (11.2-15.5)
[2023-05-07] MEDS ORDERED: Pantoprazole 40 MG Vial IVPUSH ONE (16:50)
[2023-05-07 16:53] LABS: CALCIUM 8.1 mg/dL (8.5-10.1); CREATININE 0.5 mg/dL (0.6-1.0); EST CRCL DRUG DOSING (CG) 129.2 mL/min
[2023-05-07 16:54] LABS: ANION GAP 18.8 mmol/L (5.0-14.0); POTASSIUM,K 2.8 mmol/L (3.6-5.2)
[2023-05-07] MEDS ORDERED: Ondansetron 4 MG Tab.DIS PO PRN (18:08)
[2023-05-07] MEDS ORDERED: Potassium Chloride 20 MEQ Tab.ER PO ONE (18:08)
[2023-05-07] MEDS ORDERED: Ondansetron 4 MG/2 ML SDV IV PRN (18:08)
[2023-05-07] MEDS ORDERED: Sennosides/Docusate Sodium 50-8.6 MG Tab PO PRN (18:08)
[2023-05-07] MEDS ORDERED: Melatonin 3 MG Tab PO PRN (18:08)
[2023-05-07 18:31] LABS: IRON,FE 11 ug/dL (50-170); PERCENT FE SATURATION 4 % (20-55); TOTAL IRON BINDING CAPACITY 289 ug/dl (250-450)
[2023-05-07] MEDS: Potassium Chloride 10 MEQ in Premix Bag 1 BAG IV SCH ×4 (22:19→23:56)
[2023-05-07] MEDS: QUEtiapine 25 MG Tab PO SCH (22:43)
[2023-05-07] MEDS: HYDROmorphone 0.5 MG/0.5 ML Syringe IVPUSH PRN (23:52)
[2023-05-08] MEDS: Potassium Chloride 10 MEQ in Premix Bag 1 BAG IV SCH (00:17)
[2023-05-08 04:54] LABS: HEMATOCRIT 24.4 % (34.3-46.0); HEMOGLOBIN 7.9 g/dL (11.2-15.5); MEAN CORPUSCULAR HEMOGLOBIN 27.7 pg (31.6-35.5); MEAN CORPUSCULAR HGB CONC 32.4 g/dL (31.6-35.5); MEAN CORPUSCULAR VOLUME 85.6 fL (81.4-99.0); RED BLOOD CELL COUNT 2.85 M/uL (3.77-5.24); WHITE BLOOD CELL COUNT,WBC 8.6 K/uL (3.2-11.0)
[2023-05-08] MEDS: Pantoprazole 40 MG Vial IV SCH ×2 (04:56→16:03)
[2023-05-08] MEDS: HYDROmorphone 0.5 MG/0.5 ML Syringe IVPUSH PRN ×3 (04:57→20:58)
[2023-05-08 05:14] LABS: CALCIUM 7.4 mg/dL (8.5-10.1); CREATININE 0.5 mg/dL (0.6-1.0); EST CRCL DRUG DOSING (CG) 129.2 mL/min
[2023-05-08] MEDS ORDERED: fentaNYL 50 MCG/ML SDV ONE (07:04)
[2023-05-08] MEDS ORDERED: Midazolam 1 MG/ML 2 ML SDV ONE (07:04)
[2023-05-08] MEDS ORDERED: Propofol 200 MG/20 ML SDV ONE (07:04)
[2023-05-08] MEDS: lamoTRIgine 100 MG Tab PO SCH (09:02)
[2023-05-08] MEDS: Acetaminophen 325 MG Tab PO PRN (09:02)
[2023-05-08] MEDS: Dextrose 5%-Lactated Ringers 1,000 ML IV SCH ×2 (09:03→21:16)
[2023-05-08] MEDS ORDERED: Trolamine Salicylate/Aloe Vera 10% Crm 85 GM Tube TOP PRN (09:53)
[2023-05-08] MEDS: Metoclopramide 10 MG/2 ML SDV IVPUSH SCH ×3 (10:03→21:20)
[2023-05-08] MEDS ORDERED: Sodium Ferric Gluconate Cmplex 250 MG in Sodium Chloride 0.9% 100 ML IV SCH (16:00)
[2023-05-08] MEDS: QUEtiapine 25 MG Tab PO SCH (20:55)
[2023-05-09] MEDS: HYDROmorphone 0.5 MG/0.5 ML Syringe IVPUSH PRN ×2 (04:11→07:26)
[2023-05-09] MEDS: Pantoprazole 40 MG Vial IV SCH ×2 (04:14→04:19)
[2023-05-09] MEDS: Metoclopramide 10 MG/2 ML SDV IVPUSH SCH ×2 (04:17→10:39)
[2023-05-09 04:47] LABS: HEMATOCRIT 32.9 % (34.3-46.0); HEMOGLOBIN 10.8 g/dL (11.2-15.5); MEAN CORPUSCULAR HEMOGLOBIN 27.8 pg (31.6-35.5); MEAN CORPUSCULAR HGB CONC 32.8 g/dL (31.6-35.5); MEAN CORPUSCULAR VOLUME 84.6 fL (81.4-99.0); RED BLOOD CELL COUNT 3.89 M/uL (3.77-5.24); WHITE BLOOD CELL COUNT,WBC 8.2 K/uL (3.2-11.0)
[2023-05-09 05:04] LABS: A/G RATIO 0.6 (1.2-2.2); ALANINE AMINOTRANSFERASE,ALT 71 U/L (12-78); ALBUMIN 1.8 g/dL (3.4-5.0); ALKALINE PHOSPHATASE 44 U/L (46-116); ANION GAP 9.8 mmol/L (5.0-14.0); BILIRUBIN TOTAL 0.5 mg/dL (0.2-1.0); BLOOD UREA NITROGEN,BUN 1 mg/dL (7-18); CALCIUM 7.6 mg/dL (8.5-10.1); CARBON DIOXIDE,CO2 24 mmol/L (21-32); CHLORIDE,CL 107 mmol/L (100-108); CREATININE 0.4 mg/dL (0.6-1.0); ESTIMATED GFR 125 mL/min (>60); GLUCOSE RANDOM 93 mg/dL (74-106); MAGNESIUM 1.6 mg/dL (1.8-2.4); PHOSPHORUS 2.2 mg/dL (2.5-4.9); POTASSIUM,K 3.7 mmol/L (3.6-5.2); SODIUM,NA 141 mmol/L (140-148)
[2023-05-09 05:18] LABS: ASPARTATE AMNIOTRANSFERASE,AST 49 U/L (15-37)
[2023-05-09] MEDS ORDERED: Midazolam 1 MG/ML 2 ML SDV ONE (07:32)
[2023-05-09] MEDS ORDERED: fentaNYL 50 MCG/ML SDV ONE (07:32)
[2023-05-09] MEDS ORDERED: Propofol 200 MG/20 ML SDV ONE (07:32)
[2023-05-09] MEDS: Dextrose 5%-Lactated Ringers 1,000 ML IV SCH (09:54)
[2023-05-09] MEDS: lamoTRIgine 100 MG Tab PO SCH (10:39)
[2023-05-09] MEDS: Acetaminophen 325 MG Tab PO PRN (10:44)
[2023-05-09 12:07] VITALS: PULSE 83
[2023-05-09 12:08] VITALS: BP 111/70
== END 2023-05-09 12:30 | disposition home or self-care (01) | DRG 811 ==
LOC: JP.ED 15:00 → JP.ICU 17:32
PROVIDERS: ADMIT Internal Medicine; ATTEND Internal Medicine
PROC: 30233N1 Transfusion of Nonautologous Red Blood Cells into Peripheral Vein, Percutaneous Approach (ICD-10-PCS; principal; 2023-05-07)
PROC: 0DJ08ZZ Inspection of Upper Intestinal Tract, Via Natural or Artificial Opening Endoscopic (ICD-10-PCS; 2023-05-08)
PROC: 0DB68ZX Excision of Stomach, Via Natural or Artificial Opening Endoscopic, Diagnostic (ICD-10-PCS; 2023-05-09)
DX: D62 Acute posthemorrhagic anemia (principal); K29.01 Acute gastritis with bleeding; E87.6 Hypokalemia; T18.2XXA Foreign body in stomach, initial encounter; H54.7 Unspecified visual loss; Z20.822 Contact with and (suspected) exposure to COVID-19; K21.9 Gastro-esophageal reflux disease without esophagitis; F31.9 Bipolar disorder, unspecified; F41.9 Anxiety disorder, unspecified; E03.9 Hypothyroidism, unspecified; E55.9 Vitamin D deficiency, unspecified; M54.2 Cervicalgia; G35 Multiple sclerosis; Z91.09 Other allergy status, other than to drugs and biological substances; Z90.49 Acquired absence of other specified parts of digestive tract; Z79.51 Long term (current) use of inhaled steroids; Z79.899 Other long term (current) drug therapy; Z91.013 Allergy to seafood; Z88.0 Allergy status to penicillin
CPT/HCPCS: 36415; 36430; 80048; 80053; 82607; 82728; 82746; 83013; 83550; 83735; 84100; 85025; 85027; 86850; 86900; 86901; 86920; 86922; 87081; 96374; 99222; 99232; 99285; 99285-25; A9270-GY; C9113; J0456; J1170; J2250; J2704; J2765; J2916; J3010; J3480; J3490; J7030; J7121; P9016; U0002

== ENCOUNTER 2023-05-19 16:52 | Inpatient (IN) | payer MEDICAID ==
[2023-05-19 18:10] LABS: BASOPHILS ABSOLUTE AUTO 0.01 K/uL (0.00-0.10); BASOPHILS PERCENT AUTO 0.1 % (0.1-1.3); HEMATOCRIT 24.5 % (34.3-46.0); HEMOGLOBIN 7.9 g/dL (11.2-15.5); IMMATURE GRAN ABSOLUTE AUTO 0.13 K/uL (0.00-0.23); IMMATURE GRAN PERCENT AUTO 1.1 % (0.0-0.7); LYMPHOCYTES ABSOLUTE AUTO 0.35 K/uL (0.8-3.3); MEAN CORPUSCULAR HEMOGLOBIN 28.7 pg (31.6-35.5); MEAN CORPUSCULAR HGB CONC 32.2 g/dL (31.6-35.5); MEAN CORPUSCULAR VOLUME 89.1 fL (81.4-99.0); MONOCYTES ABSOLUTE AUTO 0.67 K/uL (0.20-0.90); MONOCYTES PERCENT AUTO 5.8 % (3.3-12.6); NEUTROPHILS ABSOLUTE AUTO 10.38 K/uL (1.0-7.6); PLATELET COUNT,PLT 595 K/uL (130-375); RED BLOOD CELL COUNT 2.75 M/uL (3.77-5.24); WHITE BLOOD CELL COUNT,WBC 11.5 K/uL (3.2-11.0)
[2023-05-19 18:31] LABS: ALANINE AMINOTRANSFERASE,ALT 48 U/L (12-78); ALBUMIN 2.8 g/dL (3.4-5.0); ALKALINE PHOSPHATASE 54 U/L (46-116); ASPARTATE AMNIOTRANSFERASE,AST 26 U/L (15-37); BLOOD UREA NITROGEN,BUN 6 mg/dL (7-18); CALCIUM 8.1 mg/dL (8.5-10.1); CHLORIDE,CL 102 mmol/L (100-108); CREATININE 0.6 mg/dL (0.6-1.0); EST CRCL DRUG DOSING (CG) 107.67 mL/min; ESTIMATED GFR 113 mL/min (>60); GLUCOSE RANDOM 85 mg/dL (74-106); PROTEIN TOTAL,TP 5.5 g/dL (6.4-8.2); SODIUM,NA 138 mmol/L (140-148)
[2023-05-19 18:35] LABS: POTASSIUM,K 2.8 mmol/L (3.6-5.2)
[2023-05-19 18:36] LABS: ANION GAP 26.8 mmol/L (5.0-14.0); CARBON DIOXIDE,CO2 12 mmol/L (21-32)
[2023-05-19] MEDS ORDERED: Potassium Chloride 20 MEQ in Premix Bag 1 BAG IV ONE (18:38)
[2023-05-19 18:50] LABS: APPEARANCE,URINE CLEAR (CLEAR); BILIRUBIN,URINE NEGATIVE (NEGATIVE); COLOR,URINE YELLOW (YELLOW); GLUCOSE,URINE NEGATIVE (NEGATIVE); KETONES,URINE >=160 mg/dL (NEGATIVE); LEUKOCYTE ESTERASE,URINE TRACE (NEGATIVE); NITRITE,URINE POSITIVE (NEGATIVE); OCCULT BLOOD,URINE TRACE-INTACT (NEGATIVE); PROTEIN,URINE 100 mg/dL (NEGATIVE); UROBILINOGEN,URINE 0.2 EU/dL (0.2-1.0)
[2023-05-19 18:53] LABS: WBC,URINE 75-100 (0-5)
[2023-05-19 18:54] LABS: AMORPHOUS SEDIMENT,URINE NOT SEEN; BACTERIA,URINE MANY; EPITHELIAL CELLS,URINE RARE; MUCUS,URINE FEW
[2023-05-19] MEDS ORDERED: Sulfamethoxazole/Trimethoprim 800-160 MG Tab PO ONE (19:04)
[2023-05-19] MEDS ORDERED: Sodium Chloride 0.9% 1,000 ML IV SCH (19:15)
[2023-05-19] MEDS ORDERED: cefTRIAXone 1 GM Vial IM ONE ×2 (19:39→20:24)
[2023-05-19] MEDS ORDERED: Potassium Chloride 20 MEQ Tab.ER PO ONE (19:39)
[2023-05-19] MEDS ORDERED: cefTRIAXone 1 GM in Sodium Chloride 0.9% 50 ML IV ONE (20:44)
[2023-05-20 00:14] LABS: CALCIUM 7.5 mg/dL (8.5-10.1); CREATININE 0.5 mg/dL (0.6-1.0); EST CRCL DRUG DOSING (CG) 129.2 mL/min
[2023-05-20 00:18] LABS: ANION GAP 24.9 mmol/L (5.0-14.0); POTASSIUM,K 2.9 mmol/L (3.6-5.2)
[2023-05-20] MEDS ORDERED: Potassium Chloride 20 MEQ in Premix Bag 1 BAG IV ONE (00:55)
[2023-05-20] MEDS ORDERED: Magnesium Sulfate/Water 2 GM in Premix Bag 1 BAG IV ONE (03:42)
[2023-05-20] MEDS ORDERED: LORazepam 2 MG/ML SDV IV PRN (03:44)
[2023-05-20] MEDS ORDERED: Albuterol 0.083% 2.5 MG/3 ML Neb Soln NEB PRN (03:44)
[2023-05-20] MEDS ORDERED: Formoterol/Mometasone 200-5 MCG 8.8 GM Inhaler IH PRN ×2 (03:44→07:16)
[2023-05-20] MEDS ORDERED: Morphine 2 MG/ML SYRINGE IVPUSH PRN (03:44)
[2023-05-20] MEDS ORDERED: Naloxone 0.4 MG/ML SDV IVPUSH PRN (03:44)
[2023-05-20] MEDS ORDERED: Albuterol/Ipratropium 3.0-0.5 MG/3 ML Neb Soln NEB PRN (03:44)
[2023-05-20] MEDS ORDERED: Pantoprazole 40 MG Vial IV SCH ×2 (03:44→16:00)
[2023-05-20] MEDS ORDERED: Bisacodyl 5 MG Tab PO PRN (03:44)
[2023-05-20] MEDS ORDERED: Melatonin 3 MG Tab PO PRN (03:44)
[2023-05-20] MEDS ORDERED: Ondansetron 4 MG/2 ML SDV IV PRN (03:44)
[2023-05-20] MEDS ORDERED: oxyCODONE 5 MG Tab PO PRN (03:44)
[2023-05-20] MEDS ORDERED: Docusate Sodium 100 MG Cap PO PRN (03:44)
[2023-05-20] MEDS ORDERED: Ondansetron 4 MG Tab.DIS PO PRN (03:44)
[2023-05-20 05:54] LABS: BASOPHILS ABSOLUTE AUTO 0.01 K/uL (0.00-0.10); BASOPHILS PERCENT AUTO 0.1 % (0.1-1.3); EOSINOPHILS ABSOLUTE AUTO 0.01 K/uL (0.00-0.40); EOSINOPHILS PERCENT AUTO 0.1 % (0.0-5.4); HEMATOCRIT 22.5 % (34.3-46.0); HEMOGLOBIN 7.1 g/dL (11.2-15.5); IMMATURE GRAN ABSOLUTE AUTO 0.19 K/uL (0.00-0.23); IMMATURE GRAN PERCENT AUTO 1.8 % (0.0-0.7); LYMPHOCYTES ABSOLUTE AUTO 0.41 K/uL (0.8-3.3); LYMPHOCYTES PERCENT AUTO 3.9 % (11.4-47.7); MEAN CORPUSCULAR HEMOGLOBIN 28.5 pg (31.6-35.5); MEAN CORPUSCULAR HGB CONC 31.6 g/dL (31.6-35.5); MEAN CORPUSCULAR VOLUME 90.4 fL (81.4-99.0); MONOCYTES ABSOLUTE AUTO 0.42 K/uL (0.20-0.90); NEUTROPHILS ABSOLUTE AUTO 9.39 K/uL (1.0-7.6); NEUTROPHILS PERCENT AUTO 90.1 % (40.0-78.1); PLATELET COUNT,PLT 500 K/uL (130-375); RED BLOOD CELL COUNT 2.49 M/uL (3.77-5.24); WHITE BLOOD CELL COUNT,WBC 10.4 K/uL (3.2-11.0)
[2023-05-20 06:03] LABS: CALCIUM 7.6 mg/dL (8.5-10.1); CREATININE 0.5 mg/dL (0.6-1.0); EST CRCL DRUG DOSING (CG) 129.2 mL/min; POTASSIUM,K 3.6 mmol/L (3.6-5.2)
[2023-05-20 06:13] LABS: ANION GAP 23.6 mmol/L (5.0-14.0)
[2023-05-20] MEDS: lamoTRIgine 100 MG Tab PO SCH (08:51)
[2023-05-20] MEDS: Cholecalciferol (Vitamin D3) 25 MCG Tab PO SCH (08:51)
[2023-05-20] MEDS: Ascorbic Acid 500 MG Tab PO SCH (08:52)
[2023-05-20] MEDS: Loratadine 10 MG Tab.DIS PO SCH (08:52)
[2023-05-20] MEDS ORDERED: Hydrochlorothiazide 12.5 MG Cap PO SCH (09:00)
[2023-05-20] MEDS ORDERED: lamoTRIgine 25 MG Tab PO SCH (09:00)
[2023-05-20] MEDS: Sodium Chloride 0.9% 1,000 ML IV SCH ×2 (09:47→19:39)
[2023-05-20] MEDS ORDERED: Potassium Chloride 20 MEQ Tab.ER PO ONE (10:25)
[2023-05-20] MEDS: Pantoprazole 40 MG Tab.CR PO SCH (16:25)
[2023-05-20] MEDS: tiZANidine 2 MG Tab PO PRN (16:25)
[2023-05-20 17:24] LABS: CREATININE 0.5 mg/dL (0.6-1.0); EST CRCL DRUG DOSING (CG) 129.2 mL/min; POTASSIUM,K 3.6 mmol/L (3.6-5.2)
[2023-05-20 17:55] LABS: ANION GAP 25.6 mmol/L (5.0-14.0)
[2023-05-20] MEDS: QUEtiapine 100 MG, QUEtiapine 25 MG PO SCH ×2 (20:06)
[2023-05-20] MEDS ORDERED: cefTRIAXone 1 GM in Sodium Chloride 0.9% 50 ML IV SCH ×2 (21:00→21:10)
[2023-05-20] MEDS ORDERED: QUEtiapine 25 MG Tab PO SCH (21:00)
[2023-05-21] MEDS: tiZANidine 2 MG Tab PO PRN ×3 (02:48→19:51)
[2023-05-21] MEDS: Sodium Chloride 0.9% 1,000 ML IV SCH (04:16)
[2023-05-21] MEDS: Acetaminophen 325 MG Tab PO PRN ×3 (05:50→22:52)
[2023-05-21 05:51] LABS: HEMATOCRIT 23.4 % (34.3-46.0); MEAN CORPUSCULAR HEMOGLOBIN 29.1 pg (31.6-35.5); MEAN CORPUSCULAR HGB CONC 34.2 g/dL (31.6-35.5); MEAN CORPUSCULAR VOLUME 85.1 fL (81.4-99.0); RED BLOOD CELL COUNT 2.75 M/uL (3.77-5.24); WHITE BLOOD CELL COUNT,WBC 7.5 K/uL (3.2-11.0)
[2023-05-21 06:10] LABS: CALCIUM 7.6 mg/dL (8.5-10.1); CREATININE 0.5 mg/dL (0.6-1.0); EST CRCL DRUG DOSING (CG) 129.2 mL/min
[2023-05-21 06:16] LABS: ANION GAP 16.8 mmol/L (5.0-14.0); POTASSIUM,K 2.8 mmol/L (3.6-5.2)
[2023-05-21] MEDS ORDERED: Potassium Chloride 20 MEQ Tab.ER PO ONE ×3 (06:20→17:45)
[2023-05-21] MEDS: Potassium Chloride 10 MEQ in Premix Bag 1 BAG IV SCH ×4 (07:23→19:20)
[2023-05-21] MEDS: Pantoprazole 40 MG Tab.CR PO SCH ×2 (07:29→16:07)
[2023-05-21] MEDS: Cholecalciferol (Vitamin D3) 25 MCG Tab PO SCH (08:48)
[2023-05-21] MEDS: lamoTRIgine 100 MG Tab PO SCH (08:48)
[2023-05-21] MEDS: Ascorbic Acid 500 MG Tab PO SCH (08:48)
[2023-05-21] MEDS: Loratadine 10 MG Tab.DIS PO SCH (08:53)
[2023-05-21] MEDS: Lisinopril 10 MG Tab PO SCH (08:53)
[2023-05-21] MEDS ORDERED: Sodium Chloride 0.9% 1,000 ML IV SCH ×2 (19:30)
[2023-05-21] MEDS: QUEtiapine 100 MG, QUEtiapine 25 MG PO SCH ×2 (20:32)
[2023-05-21] MEDS: Cephalexin 250 MG Cap PO SCH (20:32)
[2023-05-22] MEDS: tiZANidine 2 MG Tab PO PRN ×3 (02:13→21:52)
[2023-05-22 04:36] LABS: HEMATOCRIT 19.5 % (34.3-46.0); MEAN CORPUSCULAR HEMOGLOBIN 29.5 pg (31.6-35.5); MEAN CORPUSCULAR HGB CONC 33.8 g/dL (31.6-35.5); MEAN CORPUSCULAR VOLUME 87.1 fL (81.4-99.0); RED BLOOD CELL COUNT 2.24 M/uL (3.77-5.24); WHITE BLOOD CELL COUNT,WBC 5.7 K/uL (3.2-11.0)
[2023-05-22 04:45] LABS: CALCIUM 7.3 mg/dL (8.5-10.1); CREATININE 0.4 mg/dL (0.6-1.0); EST CRCL DRUG DOSING (CG) 161.5 mL/min
[2023-05-22 04:49] LABS: HEMOGLOBIN 6.6 g/dL (11.2-15.5)
[2023-05-22] MEDS: Acetaminophen 325 MG Tab PO PRN (05:29)
[2023-05-22] MEDS: Pantoprazole 40 MG Tab.CR PO SCH ×2 (07:18→16:24)
[2023-05-22] MEDS: Ascorbic Acid 500 MG Tab PO SCH (08:11)
[2023-05-22] MEDS: Loratadine 10 MG Tab.DIS PO SCH (08:11)
[2023-05-22] MEDS: Cholecalciferol (Vitamin D3) 25 MCG Tab PO SCH (08:11)
[2023-05-22] MEDS: Cephalexin 250 MG Cap PO SCH ×2 (08:11→20:01)
[2023-05-22] MEDS: lamoTRIgine 100 MG Tab PO SCH (08:11)
[2023-05-22 08:31] LABS: RETICULOCYTE COUNT PERCENT 3.69 % (0.03-0.11)
[2023-05-22 08:37] LABS: A/G RATIO 0.7 (1.2-2.2); ALBUMIN 1.7 g/dL (3.4-5.0); BILIRUBIN DIRECT 0.39 mg/dL (0.0-0.2); BILIRUBIN INDIRECT 0.31; BILIRUBIN TOTAL 0.7 mg/dL (0.2-1.0)
[2023-05-22] MEDS ORDERED: Potassium Chloride 20 MEQ Tab.ER PO ONE (09:00)
[2023-05-22] MEDS: Potassium Chloride 10 MEQ in Premix Bag 1 BAG IV SCH ×2 (09:16→10:18)
[2023-05-22] MEDS: Lisinopril 10 MG Tab PO SCH (09:28)
[2023-05-22] MEDS ORDERED: Dexamethasone 4 MG/ML SDV IVPUSH ONE (11:00)
[2023-05-22] MEDS: Magnesium Sulfate/Water 2 GM in Premix Bag 1 BAG IV SCH ×2 (16:24→21:34)
[2023-05-22] MEDS: QUEtiapine 100 MG, QUEtiapine 25 MG PO SCH ×2 (20:01)
[2023-05-22] MEDS: Dexamethasone 2 MG Tab PO SCH (20:01)
[2023-05-23] MEDS: Acetaminophen 325 MG Tab PO PRN ×2 (02:25→08:27)
[2023-05-23] MEDS: Magnesium Sulfate/Water 2 GM in Premix Bag 1 BAG IV SCH (03:39)
[2023-05-23] MEDS: tiZANidine 2 MG Tab PO PRN (05:23)
[2023-05-23 06:06] LABS: HEMATOCRIT 28.5 % (34.3-46.0); HEMOGLOBIN 9.8 g/dL (11.2-15.5); MEAN CORPUSCULAR HEMOGLOBIN 29.6 pg (31.6-35.5); MEAN CORPUSCULAR HGB CONC 34.4 g/dL (31.6-35.5); MEAN CORPUSCULAR VOLUME 86.1 fL (81.4-99.0); RED BLOOD CELL COUNT 3.31 M/uL (3.77-5.24); WHITE BLOOD CELL COUNT,WBC 8.6 K/uL (3.2-11.0)
[2023-05-23 06:10] LABS: ANION GAP 11.3 mmol/L (5.0-14.0); CALCIUM 8.5 mg/dL (8.5-10.1); CREATININE 0.3 mg/dL (0.6-1.0); EST CRCL DRUG DOSING (CG) 215.33 mL/min; POTASSIUM,K 4.6 mmol/L (3.6-5.2)
[2023-05-23] MEDS: Pantoprazole 40 MG Tab.CR PO SCH (07:05)
[2023-05-23] MEDS: Cephalexin 250 MG Cap PO SCH (08:27)
[2023-05-23] MEDS: lamoTRIgine 100 MG Tab PO SCH (08:27)
[2023-05-23] MEDS: Cholecalciferol (Vitamin D3) 25 MCG Tab PO SCH (08:27)
[2023-05-23] MEDS: Loratadine 10 MG Tab.DIS PO SCH (08:27)
[2023-05-23] MEDS: Dexamethasone 2 MG Tab PO SCH (08:27)
[2023-05-23] MEDS: Ascorbic Acid 500 MG Tab PO SCH (08:28)
[2023-05-23 11:32] VITALS: BP 104/66; PULSE 82
[2023-05-23 15:12] LABS: BASOS 0 % (Not Estab.); EOS 0 % (Not Estab.); HEMATOCRIT 27.4 % (34.0-46.6); HEMOGLOBIN 8.7 g/dL (11.1-15.9); IMMATURE GRANS (ABS) 0.1 x10E3/uL (0.0-0.1); IMMATURE GRANULOCYTES 1 % (Not Estab.); LYMPHS 13 % (Not Estab.); LYMPHS (ABSOLUTE) 0.9 x10E3/uL (0.7-3.1); MCH 28.8 pg (26.6-33.0); MCHC 31.8 g/dL (31.5-35.7); MCV 91 fL (79-97); MONOCYTES 9 % (Not Estab.); MONOCYTES(ABSOLUTE) 0.6 x10E3/uL (0.1-0.9); NEUTROPHILS 77 % (Not Estab.); NEUTROPHILS (ABSOLUTE) 5.2 x10E3/uL (1.4-7.0); PLATELETS 355 x10E3/uL (150-450); PLTS Appear normal. (.); RBC 3.02 x10E6/uL (3.77-5.28); RDW 17.1 % (11.7-15.4); WBC 6.8 x10E3/uL (3.4-10.8); WBC Appear normal. (.)
== END 2023-05-23 15:15 | disposition home or self-care (01) | DRG 812 ==
LOC: JP.ED 16:52 → JP.MS 05-20 03:02
PROVIDERS: ADMIT Hospitalist; ATTEND Internal Medicine
PROC: 30233N1 Transfusion of Nonautologous Red Blood Cells into Peripheral Vein, Percutaneous Approach (ICD-10-PCS; principal; 2023-05-20)
DX: D50.0 Iron deficiency anemia secondary to blood loss (chronic) (principal); N30.00 Acute cystitis without hematuria; E87.20 Acidosis, unspecified; E87.6 Hypokalemia; E83.42 Hypomagnesemia; G35 Multiple sclerosis; K21.9 Gastro-esophageal reflux disease without esophagitis; J45.909 Unspecified asthma, uncomplicated; F41.9 Anxiety disorder, unspecified; F31.9 Bipolar disorder, unspecified; B96.20 Unspecified Escherichia coli [E. coli] as the cause of diseases classified elsewhere; Z20.822 Contact with and (suspected) exposure to COVID-19; F70 Mild intellectual disabilities; E03.9 Hypothyroidism, unspecified; M54.2 Cervicalgia; I95.9 Hypotension, unspecified; G89.29 Other chronic pain; Z88.0 Allergy status to penicillin; Z91.013 Allergy to seafood; Z88.6 Allergy status to analgesic agent; Z88.1 Allergy status to other antibiotic agents; Z88.8 Allergy status to other drugs, medicaments and biological substances; Z90.49 Acquired absence of other specified parts of digestive tract; Z98.51 Tubal ligation status; Z98.890 Other specified postprocedural states; Z87.891 Personal history of nicotine dependence
CPT/HCPCS: 36415; 36430; 51701; 72040; 72040-26; 80048; 80053; 80076; 80179; 81001; 82150; 83010; 83615; 83690; 83735; 84132; 85018; 85025; 85027; 85045; 85060; 86850; 86880; 86900; 86901; 86920; 86922; 87086; 87088; 87186; 96361; 96365; 96366; 96367; 97110-GP; 97162-GP; 97530-GP; 99222; 99232; 99238; 99285-25; A9270-GY; C9113; J0696; J1100; J3475; J3480; J3490; J7030; J8540; P9016; Q0162; U0002

== ENCOUNTER 2023-05-29 11:30 | Emergency (ER) | payer MEDICAID ==
[2023-05-29 12:32] LABS: HEMATOCRIT 36.1 % (34.3-46.0); HEMOGLOBIN 11.6 g/dL (11.2-15.5); MEAN CORPUSCULAR HEMOGLOBIN 29.5 pg (31.6-35.5); MEAN CORPUSCULAR HGB CONC 32.1 g/dL (31.6-35.5); MEAN CORPUSCULAR VOLUME 91.9 fL (81.4-99.0); RED BLOOD CELL COUNT 3.93 M/uL (3.77-5.24); WHITE BLOOD CELL COUNT,WBC 6.5 K/uL (3.2-11.0)
[2023-05-29 12:33] LABS: BASE EXCESS VENOUS 11.9 mm/L; BICARBONATE,VENOUS 36.7 mmol/L; CARBOXYHEMOGLOBIN 2.8 % (0.0-1.6); METHEMOGLOBIN 0.7 %; O2 SATURATION VENOUS 51.5; OXYHEMOGLOBIN 49.7 %; PCO2 VENOUS 47.5 mm/Hg
[2023-05-29 12:34] LABS: PO2 VENOUS 30.3 mm/Hg
[2023-05-29 12:54] LABS: A/G RATIO 0.9 (1.2-2.2); ALANINE AMINOTRANSFERASE,ALT 27 U/L (12-78); ALBUMIN 2.7 g/dL (3.4-5.0); ALKALINE PHOSPHATASE 48 U/L (46-116); ASPARTATE AMNIOTRANSFERASE,AST 13 U/L (15-37); BILIRUBIN TOTAL 0.9 mg/dL (0.2-1.0); BLOOD UREA NITROGEN,BUN 4 mg/dL (7-18); CALCIUM 8.4 mg/dL (8.5-10.1); CARBON DIOXIDE,CO2 38 mmol/L (21-32); CHLORIDE,CL 100 mmol/L (100-108); CREATININE 0.5 mg/dL (0.6-1.0); EST CRCL DRUG DOSING (CG) 134.41 mL/min; ESTIMATED GFR 119 mL/min (>60); GLUCOSE RANDOM 94 mg/dL (74-106); POTASSIUM,K 3.6 mmol/L (3.6-5.2); PROTEIN TOTAL,TP 5.6 g/dL (6.4-8.2); SODIUM,NA 142 mmol/L (140-148)
[2023-05-29 12:56] LABS: ANION GAP 7.6 mmol/L (5.0-14.0)
[2023-05-29 14:05] LABS: BILIRUBIN,URINE NEGATIVE (NEGATIVE); COLOR,URINE YELLOW (YELLOW); GLUCOSE,URINE NEGATIVE (NEGATIVE); KETONES,URINE NEGATIVE (NEGATIVE); LEUKOCYTE ESTERASE,URINE TRACE (NEGATIVE); NITRITE,URINE NEGATIVE (NEGATIVE); OCCULT BLOOD,URINE TRACE-INTACT (NEGATIVE); PROTEIN,URINE NEGATIVE (NEGATIVE)
[2023-05-29 14:13] LABS: APPEARANCE,URINE SLIGHTLY CLOUDY (CLEAR)
[2023-05-29 14:14] LABS: AMORPHOUS SEDIMENT,URINE NOT SEEN; BACTERIA,URINE FEW; EPITHELIAL CELLS,URINE FEW; MUCUS,URINE FEW
[2023-05-29 16:20] VITALS: BP 131/48; PULSE 80
== END 2023-05-29 17:10 | disposition home or self-care (01) ==
LOC: JP.ED 11:30
DX: N39.0 Urinary tract infection, site not specified (principal); J45.909 Unspecified asthma, uncomplicated; K21.9 Gastro-esophageal reflux disease without esophagitis; M19.90 Unspecified osteoarthritis, unspecified site; E03.9 Hypothyroidism, unspecified; Z88.8 Allergy status to other drugs, medicaments and biological substances; Z91.013 Allergy to seafood; Z88.0 Allergy status to penicillin; Z88.6 Allergy status to analgesic agent; Z79.899 Other long term (current) drug therapy
CPT/HCPCS: 36415; 51702; 71046; 71046-26; 80053; 81001; 82803; 83605; 84145; 85027; 87086; 99285

== ENCOUNTER 2023-05-30 20:11 | Inpatient (IN) | payer MEDICAID ==
[2023-05-30 20:33] LABS: BASOPHILS PERCENT AUTO 0.3 % (0.1-1.3); EOSINOPHILS ABSOLUTE AUTO 0.15 K/uL (0.00-0.40); EOSINOPHILS PERCENT AUTO 2.4 % (0.0-5.4); HEMATOCRIT 35.3 % (34.3-46.0); HEMOGLOBIN 11.3 g/dL (11.2-15.5); IMMATURE GRAN ABSOLUTE AUTO 0.13 K/uL (0.00-0.23); IMMATURE GRAN PERCENT AUTO 2.1 % (0.0-0.7); LYMPHOCYTES PERCENT AUTO 15.8 % (11.4-47.7); MEAN CORPUSCULAR HEMOGLOBIN 29.2 pg (31.6-35.5); MEAN CORPUSCULAR VOLUME 91.2 fL (81.4-99.0); MONOCYTES ABSOLUTE AUTO 1.03 K/uL (0.20-0.90); MONOCYTES PERCENT AUTO 16.3 % (3.3-12.6); NEUTROPHILS ABSOLUTE AUTO 3.98 K/uL (1.0-7.6); NEUTROPHILS PERCENT AUTO 63.1 % (40.0-78.1); PLATELET COUNT,PLT 346 K/uL (130-375); RED BLOOD CELL COUNT 3.87 M/uL (3.77-5.24); WHITE BLOOD CELL COUNT,WBC 6.3 K/uL (3.2-11.0)
[2023-05-30 20:34] LABS: BASOPHILS ABSOLUTE AUTO 0.02 K/uL (0.00-0.10)
[2023-05-30 20:51] LABS: BLOOD UREA NITROGEN,BUN 5 mg/dL (7-18); CALCIUM 8.4 mg/dL (8.5-10.1); CARBON DIOXIDE,CO2 35 mmol/L (21-32); CHLORIDE,CL 99 mmol/L (100-108); CREATININE 0.6 mg/dL (0.6-1.0); ESTIMATED GFR 113 mL/min (>60); GLUCOSE RANDOM 110 mg/dL (74-106); SODIUM,NA 140 mmol/L (140-148)
[2023-05-30 20:52] LABS: ANION GAP 8.8 mmol/L (5.0-14.0); POTASSIUM,K 2.8 mmol/L (3.6-5.2)
[2023-05-30] MEDS ORDERED: Iopamidol 612 MG/ML 30 ML SDV PO ONE (21:17)
[2023-05-30] MEDS ORDERED: Iopamidol 612 MG/ML 100 ML Bottle IV SCH (21:30)
[2023-05-30] MEDS ORDERED: Sodium Chloride 0.9% 50 ML IV SCH (21:30)
[2023-05-30] MEDS ORDERED: Magnesium Hydroxide 400 MG/5 ML Susp 30 ML Cup PO PRN (22:54)
[2023-05-30] MEDS ORDERED: Ondansetron 4 MG/2 ML SDV IV PRN (22:54)
[2023-05-30] MEDS ORDERED: Melatonin 3 MG Tab PO PRN (22:54)
[2023-05-30] MEDS ORDERED: Pantoprazole 40 MG Vial IV SCH (22:54)
[2023-05-30] MEDS ORDERED: Sennosides/Docusate Sodium 50-8.6 MG Tab PO PRN (22:54)
[2023-05-30] MEDS ORDERED: Ondansetron 4 MG Tab.DIS PO PRN (22:54)
[2023-05-30] MEDS ORDERED: Acetaminophen 325 MG Tab PO PRN (22:54)
[2023-05-30] MEDS ORDERED: Sodium Chloride 0.9% 1,000 ML IV SCH (22:54)
[2023-05-30] MEDS: Meropenem 1 GM in Sodium Chloride 0.9% 100 ML IV SCH (23:17)
[2023-05-30] MEDS: Potassium Chloride 10 MEQ in Premix Bag 1 BAG IV SCH (23:51)
[2023-05-31] MEDS: Potassium Chloride 10 MEQ in Premix Bag 1 BAG IV SCH ×4 (00:53→03:56)
[2023-05-31 04:52] LABS: BASOPHILS PERCENT AUTO 0.4 % (0.1-1.3); EOSINOPHILS ABSOLUTE AUTO 0.17 K/uL (0.00-0.40); HEMATOCRIT 29.5 % (34.3-46.0); HEMOGLOBIN 9.3 g/dL (11.2-15.5); IMMATURE GRAN ABSOLUTE AUTO 0.12 K/uL (0.00-0.23); IMMATURE GRAN PERCENT AUTO 2.1 % (0.0-0.7); LYMPHOCYTES ABSOLUTE AUTO 1.03 K/uL (0.8-3.3); LYMPHOCYTES PERCENT AUTO 18.2 % (11.4-47.7); MEAN CORPUSCULAR HEMOGLOBIN 29.1 pg (31.6-35.5); MEAN CORPUSCULAR HGB CONC 31.5 g/dL (31.6-35.5); MEAN CORPUSCULAR VOLUME 92.2 fL (81.4-99.0); MONOCYTES ABSOLUTE AUTO 0.82 K/uL (0.20-0.90); MONOCYTES PERCENT AUTO 14.5 % (3.3-12.6); NEUTROPHILS ABSOLUTE AUTO 3.49 K/uL (1.0-7.6); NEUTROPHILS PERCENT AUTO 61.8 % (40.0-78.1); PLATELET COUNT,PLT 263 K/uL (130-375); WHITE BLOOD CELL COUNT,WBC 5.7 K/uL (3.2-11.0)
[2023-05-31 04:53] LABS: BASOPHILS ABSOLUTE AUTO 0.02 K/uL (0.00-0.10)
[2023-05-31 05:14] LABS: A/G RATIO 0.9 (1.2-2.2); ALANINE AMINOTRANSFERASE,ALT 20 U/L (12-78); ALBUMIN 2.2 g/dL (3.4-5.0); ALKALINE PHOSPHATASE 34 U/L (46-116); ASPARTATE AMNIOTRANSFERASE,AST 14 U/L (15-37); BILIRUBIN TOTAL 0.5 mg/dL (0.2-1.0); BLOOD UREA NITROGEN,BUN 3 mg/dL (7-18); CALCIUM 7.6 mg/dL (8.5-10.1); CARBON DIOXIDE,CO2 34 mmol/L (21-32); CHLORIDE,CL 104 mmol/L (100-108); CREATININE 0.5 mg/dL (0.6-1.0); EST CRCL DRUG DOSING (CG) 134.41 mL/min; ESTIMATED GFR 119 mL/min (>60); GLUCOSE RANDOM 87 mg/dL (74-106); POTASSIUM,K 3.7 mmol/L (3.6-5.2); PROTEIN TOTAL,TP 4.6 g/dL (6.4-8.2); SODIUM,NA 141 mmol/L (140-148)
[2023-05-31 05:17] LABS: ANION GAP 6.7 mmol/L (5.0-14.0)
[2023-05-31] MEDS: Meropenem 1 GM in Sodium Chloride 0.9% 100 ML IV SCH (06:06)
[2023-05-31] MEDS ORDERED: Bupivacaine 0.5% 50 ML MDV ONE (07:32)
[2023-05-31] MEDS ORDERED: Lidocaine 1% with EPINEPHrine 1:100,000 50 ML MDV ONE (07:32)
[2023-05-31] MEDS ORDERED: Meropenem 500 MG SDV ONE ×2 (07:32→09:08)
[2023-05-31] MEDS ORDERED: fentaNYL 250 MCG/5 ML SDV ONE ×2 (07:35→08:47)
[2023-05-31] MEDS ORDERED: Ondansetron 4 MG/2 ML SDV ONE (07:35)
[2023-05-31] MEDS ORDERED: Rocuronium 50 MG/5 ML Vial ONE ×2 (07:35→08:58)
[2023-05-31] MEDS ORDERED: Dexamethasone 4 MG/ML SDV ONE (07:35)
[2023-05-31] MEDS ORDERED: Neostigmine Methylsulfate 1 MG/ML 5 ML Syringe ONE (07:35)
[2023-05-31] MEDS ORDERED: Propofol 200 MG/20 ML SDV ONE (07:35)
[2023-05-31] MEDS ORDERED: Glycopyrrolate 0.2 MG/ML 5 ML MDV ONE (07:35)
[2023-05-31] MEDS ORDERED: Ketamine 500 MG/5 ML MDV IV SCH (08:00)
[2023-05-31] MEDS ORDERED: Naloxone 0.4 MG/ML SDV IV PRN (08:00)
[2023-05-31] MEDS ORDERED: Ropivacaine 30 ML, dexAMETHasone 8 MG, EPINEPHrine 0.4 MG, Sodium Chloride 0.9% 47.6 ML NERVRT SCH ×4 (08:00)
[2023-05-31] MEDS ORDERED: Ketamine 17 MG in Sodium Chloride 0.9% 19.83 ML IV SCH (08:00)
[2023-05-31] MEDS: HYDROmorphone/Normal Saline 6 MG/30 ML PCA Vial IV PRN ×2 (08:30→11:36)
[2023-05-31] MEDS ORDERED: Labetalol 20 MG/4 ML Syringe ONE (08:58)
[2023-05-31] MEDS ORDERED: Pantoprazole 40 MG Vial IV SCH (09:00)
[2023-05-31] MEDS ORDERED: Linezolid 600 MG/300 ML Premix Bag IRR ONE (09:30)
[2023-05-31] MEDS: Nystatin Crm 15 GM Tube TOP SCH ×2 (10:00→20:26)
[2023-05-31] MEDS ORDERED: Sugammadex Sodium 200 MG/2 ML VIAL ONE (10:13)
[2023-05-31] MEDS ORDERED: Cyclobenzaprine 10 MG Tab PO PRN (11:05)
[2023-05-31] MEDS ORDERED: tiZANidine 2 MG Tab PO PRN (11:12)
[2023-05-31] MEDS ORDERED: Metoclopramide 10 MG/2 ML SDV IVPUSH PRN (12:00)
[2023-05-31] MEDS ORDERED: diphenhydrAMINE 50 MG/ML SDV IVPUSH PRN (12:00)
[2023-05-31] MEDS ORDERED: Labetalol 20 MG/4 ML Syringe IVPUSH PRN (12:00)
[2023-05-31] MEDS ORDERED: hydrOXYzine HCL 100 MG/2 ML SDV IM PRN (12:00)
[2023-05-31] MEDS ORDERED: Acetaminophen 500 MG Tab PO PRN (12:00)
[2023-05-31] MEDS ORDERED: Ondansetron 4 MG/2 ML SDV IVPUSH PRN (12:00)
[2023-05-31] MEDS: Dextrose 5%-Lactated Ringers 1,000 ML IV SCH ×2 (12:27→22:34)
[2023-05-31] MEDS: Dexamethasone 2 MG Tab PO SCH (12:31)
[2023-05-31] MEDS ORDERED: Meropenem 1 GM in Sodium Chloride 0.9% 100 ML IV SCH (14:00)
[2023-05-31] MEDS: Albuterol/Ipratropium 3.0-0.5 MG/3 ML Neb Soln INH SCH ×2 (14:27→20:26)
[2023-05-31] MEDS: Meropenem 500 MG in Sodium Chloride 0.9% 50 ML IV SCH ×2 (14:56→20:27)
[2023-05-31] MEDS ORDERED: MVI, Adult with Vitamin K 10 ML, Thiamine 200 MG, Zinc/Copper/Manganese/Selenium 1 ML i... IV SCH ×4 (16:00)
[2023-05-31] MEDS: Pantoprazole 40 MG Vial IVPUSH SCH (16:22)
[2023-05-31] MEDS: Acetaminophen 500 MG Tab PO SCH (17:28)
[2023-05-31] MEDS: QUEtiapine 100 MG, QUEtiapine 25 MG PO SCH ×2 (20:33)
[2023-06-01] MEDS: Acetaminophen 500 MG Tab PO SCH ×3 (02:59→18:45)
[2023-06-01] MEDS: Meropenem 500 MG in Sodium Chloride 0.9% 50 ML IV SCH ×4 (02:59→20:17)
[2023-06-01] MEDS ORDERED: Iopamidol 612 MG/ML 30 ML SDV PO ONE (04:07)
[2023-06-01 05:09] LABS: BASOPHILS ABSOLUTE AUTO 0.03 K/uL (0.00-0.10); BASOPHILS PERCENT AUTO 0.1 % (0.1-1.3); HEMATOCRIT 33.5 % (34.3-46.0); HEMOGLOBIN 10.7 g/dL (11.2-15.5); IMMATURE GRAN ABSOLUTE AUTO 0.22 K/uL (0.00-0.23); LYMPHOCYTES ABSOLUTE AUTO 0.51 K/uL (0.8-3.3); LYMPHOCYTES PERCENT AUTO 2.3 % (11.4-47.7); MEAN CORPUSCULAR HEMOGLOBIN 29.2 pg (31.6-35.5); MEAN CORPUSCULAR HGB CONC 31.9 g/dL (31.6-35.5); MEAN CORPUSCULAR VOLUME 91.3 fL (81.4-99.0); MONOCYTES ABSOLUTE AUTO 1.43 K/uL (0.20-0.90); MONOCYTES PERCENT AUTO 6.5 % (3.3-12.6); NEUTROPHILS ABSOLUTE AUTO 19.96 K/uL (1.0-7.6); NEUTROPHILS PERCENT AUTO 90.1 % (40.0-78.1); PLATELET COUNT,PLT 333 K/uL (130-375); RED BLOOD CELL COUNT 3.67 M/uL (3.77-5.24); WHITE BLOOD CELL COUNT,WBC 22.2 K/uL (3.2-11.0)
[2023-06-01 05:39] LABS: A/G RATIO 0.8 (1.2-2.2); ALANINE AMINOTRANSFERASE,ALT 26 U/L (12-78); ALBUMIN 2.2 g/dL (3.4-5.0); ALKALINE PHOSPHATASE 39 U/L (46-116); ASPARTATE AMNIOTRANSFERASE,AST 24 U/L (15-37); BILIRUBIN TOTAL 0.6 mg/dL (0.2-1.0); BLOOD UREA NITROGEN,BUN 3 mg/dL (7-18); CALCIUM 8.3 mg/dL (8.5-10.1); CARBON DIOXIDE,CO2 31 mmol/L (21-32); CHLORIDE,CL 101 mmol/L (100-108); CREATININE 0.5 mg/dL (0.6-1.0); EST CRCL DRUG DOSING (CG) 134.41 mL/min; ESTIMATED GFR 119 mL/min (>60); FERRITIN 142 ng/ml (8-388); GLUCOSE RANDOM 153 mg/dL (74-106); MAGNESIUM 1.8 mg/dL (1.8-2.4); PHOSPHORUS 2.9 mg/dL (2.5-4.9); POTASSIUM,K 3.4 mmol/L (3.6-5.2); PRO B-TYPE NATRIUR PEPT,BNPPRO 302 pg/mL (5-125); PROTEIN TOTAL,TP 4.9 g/dL (6.4-8.2); SODIUM,NA 139 mmol/L (140-148)
[2023-06-01 05:53] LABS: ANION GAP 10.4 mmol/L (5.0-14.0)
[2023-06-01] MEDS: Albuterol/Ipratropium 3.0-0.5 MG/3 ML Neb Soln INH SCH ×4 (07:27→20:17)
[2023-06-01] MEDS: Dexamethasone 2 MG Tab PO SCH (07:47)
[2023-06-01] MEDS: Loratadine 10 MG Tab.DIS PO SCH ×2 (07:47→08:21)
[2023-06-01] MEDS: lamoTRIgine 100 MG Tab PO SCH ×2 (07:48→08:22)
[2023-06-01] MEDS: Formoterol/Mometasone 200-5 MCG 8.8 GM Inhaler IH SCH (08:20)
[2023-06-01] MEDS ORDERED: Potassium Phos in 0.9 % NaCl 15 MMOL in Premix Bag 1 BAG IV SCH ×2 (10:00)
[2023-06-01] MEDS: Albumin Human 25 GM in Premix Bag 1 BAG IV SCH (10:36)
[2023-06-01] MEDS: Nystatin Crm 15 GM Tube TOP SCH ×2 (14:06→20:17)
[2023-06-01] MEDS: Potassium Phos in 0.9 % NaCl 15 MMOL in Premix Bag 1 BAG IV SCH ×6 (15:20→23:02)
[2023-06-01] MEDS: Pantoprazole 40 MG Vial IVPUSH SCH (15:25)
[2023-06-01] MEDS ORDERED: MVI, Adult with Vitamin K 10 ML, Thiamine 200 MG, Zinc/Copper/Manganese/Selenium 1 ML i... IV SCH ×4 (16:00)
[2023-06-01] MEDS: QUEtiapine 100 MG, QUEtiapine 25 MG PO SCH ×2 (20:20)
[2023-06-01] MEDS: HYDROmorphone/Normal Saline 6 MG/30 ML PCA Vial IV PRN (23:25)
[2023-06-02] MEDS: Dextrose 5%-Lactated Ringers 1,000 ML IV SCH ×2 (01:01→13:09)
[2023-06-02] MEDS: Acetaminophen 500 MG Tab PO SCH ×3 (01:04→17:13)
[2023-06-02] MEDS ORDERED: Meropenem 500 MG SDV ONE (06:32)
[2023-06-02] MEDS: Lidocaine 1% 50 ML MDV ONE ×2 (06:52→07:46)
[2023-06-02] MEDS: Bupivacaine 0.5%/EPINEPHrine 1:200,000 50 ML MDV ONE ×2 (06:52→07:46)
[2023-06-02] MEDS ORDERED: Propofol 200 MG/20 ML SDV ONE ×2 (07:02→07:42)
[2023-06-02] MEDS ORDERED: Midazolam 1 MG/ML 2 ML SDV ONE (07:02)
[2023-06-02] MEDS ORDERED: fentaNYL 100 MCG/2 ML SDV ONE (07:02)
[2023-06-02] MEDS ORDERED: Ropivacaine 30 ML, dexAMETHasone 8 MG, EPINEPHrine 0.4 MG, Sodium Chloride 0.9% 47.6 ML NERVRT SCH ×4 (07:30)
[2023-06-02] MEDS ORDERED: Lactated Ringers 1,000 ML ONE (07:31)
[2023-06-02] MEDS: Albuterol/Ipratropium 3.0-0.5 MG/3 ML Neb Soln INH SCH ×4 (07:37→22:06)
[2023-06-02] MEDS: Formoterol/Mometasone 200-5 MCG 8.8 GM Inhaler IH SCH (08:15)
[2023-06-02] MEDS: Nystatin Crm 15 GM Tube TOP SCH ×2 (08:42→22:03)
[2023-06-02] MEDS ORDERED: Cyanocobalamin (Vitamin B12) 1,000 MCG/ML SDV IM ONE (09:00)
[2023-06-02] MEDS: lamoTRIgine 100 MG Tab PO SCH (09:09)
[2023-06-02] MEDS: Loratadine 10 MG Tab.DIS PO SCH (09:10)
[2023-06-02] MEDS: Albumin Human 25 GM in Premix Bag 1 BAG IV SCH (09:10)
[2023-06-02] MEDS: Dexamethasone 2 MG Tab PO SCH (09:10)
[2023-06-02] MEDS: Pantoprazole 40 MG Tab.CR PO SCH (17:14)
[2023-06-02] MEDS: QUEtiapine 100 MG, QUEtiapine 25 MG PO SCH ×2 (22:03)
[2023-06-03] MEDS: Acetaminophen 500 MG Tab PO SCH ×3 (01:45→17:53)
[2023-06-03 02:13] LABS: AMYLASE,BODY FLUID 8 U/L
[2023-06-03 02:13] LABS: AMYLASE,BODY FLUID 6 U/L
[2023-06-03 02:20] LABS: AMYLASE BODY FLUID TYPE JP DRAINAGE #1
[2023-06-03 02:21] LABS: AMYLASE BODY FLUID TYPE JP DRAINAGE #2
[2023-06-03 04:33] LABS: HEMATOCRIT 23.5 % (34.3-46.0); HEMOGLOBIN 7.4 g/dL (11.2-15.5); MEAN CORPUSCULAR HEMOGLOBIN 29.2 pg (31.6-35.5); MEAN CORPUSCULAR HGB CONC 31.5 g/dL (31.6-35.5); MEAN CORPUSCULAR VOLUME 92.9 fL (81.4-99.0); RED BLOOD CELL COUNT 2.53 M/uL (3.77-5.24); WHITE BLOOD CELL COUNT,WBC 22.2 K/uL (3.2-11.0)
[2023-06-03 04:54] LABS: A/G RATIO 1.1 (1.2-2.2); ALANINE AMINOTRANSFERASE,ALT 18 U/L (12-78); ALBUMIN 2.3 g/dL (3.4-5.0); ALKALINE PHOSPHATASE 36 U/L (46-116); ASPARTATE AMNIOTRANSFERASE,AST 10 U/L (15-37); BILIRUBIN TOTAL 0.6 mg/dL (0.2-1.0); BLOOD UREA NITROGEN,BUN 1 mg/dL (7-18); CALCIUM 8.3 mg/dL (8.5-10.1); CARBON DIOXIDE,CO2 32 mmol/L (21-32); CHLORIDE,CL 104 mmol/L (100-108); CREATININE 0.4 mg/dL (0.6-1.0); EST CRCL DRUG DOSING (CG) 168.02 mL/min; ESTIMATED GFR 125 mL/min (>60); GLUCOSE RANDOM 106 mg/dL (74-106); MAGNESIUM 1.5 mg/dL (1.8-2.4); PHOSPHORUS 4.1 mg/dL (2.5-4.9); PROTEIN TOTAL,TP 4.4 g/dL (6.4-8.2); SODIUM,NA 143 mmol/L (140-148)
[2023-06-03 05:13] LABS: ANION GAP 9.9 mmol/L (5.0-14.0); POTASSIUM,K 2.9 mmol/L (3.6-5.2)
[2023-06-03] MEDS: Albuterol/Ipratropium 3.0-0.5 MG/3 ML Neb Soln INH SCH ×4 (06:55→21:32)
[2023-06-03] MEDS: Pantoprazole 40 MG Tab.CR PO SCH (07:21)
[2023-06-03] MEDS: Dexamethasone 2 MG Tab PO SCH (07:21)
[2023-06-03] MEDS ORDERED: Potassium Phosphates 3 mMole/ML 15 ML SDV IV ONE (07:43)
[2023-06-03] MEDS ORDERED: HYDROmorphone 2 MG Tab PO PRN (07:44)
[2023-06-03] MEDS: Dextrose 5%-Lactated Ringers 1,000 ML IV SCH ×2 (07:59→17:51)
[2023-06-03] MEDS: Formoterol/Mometasone 200-5 MCG 8.8 GM Inhaler IH SCH (08:08)
[2023-06-03] MEDS: Nystatin Crm 15 GM Tube TOP SCH ×3 (08:41→20:03)
[2023-06-03] MEDS: Loratadine 10 MG Tab.DIS PO SCH (08:41)
[2023-06-03] MEDS: Docusate Sodium 100 MG Cap PO SCH ×3 (08:41→20:03)
[2023-06-03] MEDS: Bisacodyl 5 MG Tab PO SCH ×3 (08:41→20:03)
[2023-06-03] MEDS: lamoTRIgine 100 MG Tab PO SCH (08:41)
[2023-06-03] MEDS: Potassium Phos in 0.9 % NaCl 15 MMOL in Premix Bag 1 BAG IV SCH ×4 (09:08→12:19)
[2023-06-03] MEDS: Magnesium Sulfate/Water 2 GM/50 ML BAG IV SCH ×3 (09:09→21:32)
[2023-06-03] MEDS: Potassium Chloride 20 MEQ, Lidocaine 1% 2 ML in Sodium Chloride 0.9% 100 ML IV SCH ×3 (15:27→19:34)
[2023-06-03] MEDS: Albumin Human 25 GM in Premix Bag 1 BAG IV SCH (15:27)
[2023-06-03] MEDS: QUEtiapine 100 MG, QUEtiapine 25 MG PO SCH ×2 (21:33)
[2023-06-04] MEDS: Acetaminophen 500 MG Tab PO SCH ×3 (03:29→17:47)
[2023-06-04] MEDS: Magnesium Sulfate/Water 2 GM/50 ML BAG IV SCH ×4 (03:29→21:13)
[2023-06-04] MEDS: Dextrose 5%-Lactated Ringers 1,000 ML IV SCH (03:32)
[2023-06-04 05:15] LABS: HEMATOCRIT 29.7 % (34.3-46.0); HEMOGLOBIN 9.7 g/dL (11.2-15.5); MEAN CORPUSCULAR HEMOGLOBIN 29.5 pg (31.6-35.5); MEAN CORPUSCULAR HGB CONC 32.7 g/dL (31.6-35.5); MEAN CORPUSCULAR VOLUME 90.3 fL (81.4-99.0); RED BLOOD CELL COUNT 3.29 M/uL (3.77-5.24); WHITE BLOOD CELL COUNT,WBC 19.1 K/uL (3.2-11.0)
[2023-06-04 05:50] LABS: A/G RATIO 1.2 (1.2-2.2); ALANINE AMINOTRANSFERASE,ALT 14 U/L (12-78); ALBUMIN 2.3 g/dL (3.4-5.0); ALKALINE PHOSPHATASE 45 U/L (46-116); ANION GAP 9.1 mmol/L (5.0-14.0); ASPARTATE AMNIOTRANSFERASE,AST 8 U/L (15-37); BILIRUBIN TOTAL 0.8 mg/dL (0.2-1.0); BLOOD UREA NITROGEN,BUN 2 mg/dL (7-18); CALCIUM 7.9 mg/dL (8.5-10.1); CARBON DIOXIDE,CO2 31 mmol/L (21-32); CHLORIDE,CL 105 mmol/L (100-108); CREATININE 0.4 mg/dL (0.6-1.0); EST CRCL DRUG DOSING (CG) 168.93 mL/min; ESTIMATED GFR 125 mL/min (>60); GLUCOSE RANDOM 86 mg/dL (74-106); PHOSPHORUS 4.2 mg/dL (2.5-4.9); POTASSIUM,K 3.1 mmol/L (3.6-5.2); PROTEIN TOTAL,TP 4.3 g/dL (6.4-8.2); SODIUM,NA 142 mmol/L (140-148)
[2023-06-04] MEDS: Albuterol/Ipratropium 3.0-0.5 MG/3 ML Neb Soln INH SCH ×4 (07:03→21:12)
[2023-06-04] MEDS: Pantoprazole 40 MG Tab.CR PO SCH (07:33)
[2023-06-04] MEDS: Dexamethasone 2 MG Tab PO SCH (07:33)
[2023-06-04] MEDS: Magnesium Hydroxide 400 MG/5 ML Susp 30 ML Cup PO SCH ×2 (08:05→21:12)
[2023-06-04] MEDS: Docusate Sodium 100 MG Cap PO SCH ×2 (08:05→21:12)
[2023-06-04] MEDS: lamoTRIgine 100 MG Tab PO SCH (08:06)
[2023-06-04] MEDS: Loratadine 10 MG Tab.DIS PO SCH (08:06)
[2023-06-04] MEDS: Nystatin Crm 15 GM Tube TOP SCH ×2 (08:06→21:12)
[2023-06-04] MEDS: Bisacodyl 5 MG Tab PO SCH ×2 (08:06→21:12)
[2023-06-04] MEDS: Potassium Chloride 20 MEQ, Lidocaine 1% 2 ML in Sodium Chloride 0.9% 100 ML IV SCH ×3 (08:27→13:17)
[2023-06-04] MEDS: Formoterol/Mometasone 200-5 MCG 8.8 GM Inhaler IH SCH (08:35)
[2023-06-04] MEDS ORDERED: Dextrose 5%-Lactated Ringers 1,000 ML IV SCH (09:30)
[2023-06-04] MEDS: Albumin Human 25 GM in Premix Bag 1 BAG IV SCH (15:50)
[2023-06-04] MEDS: QUEtiapine 100 MG, QUEtiapine 25 MG PO SCH ×2 (21:12)
[2023-06-05] MEDS: Acetaminophen 500 MG Tab PO SCH ×2 (03:01→03:54)
[2023-06-05] MEDS: Magnesium Sulfate/Water 2 GM/50 ML BAG IV SCH (03:55)
[2023-06-05 04:24] LABS: HEMATOCRIT 28.3 % (34.3-46.0); HEMOGLOBIN 9.2 g/dL (11.2-15.5); MEAN CORPUSCULAR HEMOGLOBIN 29.7 pg (31.6-35.5); MEAN CORPUSCULAR HGB CONC 32.5 g/dL (31.6-35.5); MEAN CORPUSCULAR VOLUME 91.3 fL (81.4-99.0); RED BLOOD CELL COUNT 3.1 M/uL (3.77-5.24); WHITE BLOOD CELL COUNT,WBC 12.9 K/uL (3.2-11.0)
[2023-06-05 04:47] LABS: A/G RATIO 1.1 (1.2-2.2); ALANINE AMINOTRANSFERASE,ALT 17 U/L (12-78); ALBUMIN 2.4 g/dL (3.4-5.0); ALKALINE PHOSPHATASE 49 U/L (46-116); ANION GAP 5.3 mmol/L (5.0-14.0); ASPARTATE AMNIOTRANSFERASE,AST 8 U/L (15-37); BLOOD UREA NITROGEN,BUN 4 mg/dL (7-18); CARBON DIOXIDE,CO2 30 mmol/L (21-32); CHLORIDE,CL 105 mmol/L (100-108); CREATININE 0.4 mg/dL (0.6-1.0); EST CRCL DRUG DOSING (CG) 168.93 mL/min; ESTIMATED GFR 125 mL/min (>60); GLUCOSE RANDOM 78 mg/dL (74-106); MAGNESIUM 2.4 mg/dL (1.8-2.4); PHOSPHORUS 4.1 mg/dL (2.5-4.9); POTASSIUM,K 3.8 mmol/L (3.6-5.2); PROTEIN TOTAL,TP 4.5 g/dL (6.4-8.2); SODIUM,NA 140 mmol/L (140-148)
[2023-06-05 05:22] VITALS: BP 116/72; PULSE 107
[2023-06-05] MEDS: Albuterol/Ipratropium 3.0-0.5 MG/3 ML Neb Soln INH SCH ×2 (07:40→10:43)
[2023-06-05] MEDS: Dexamethasone 2 MG Tab PO SCH (08:15)
[2023-06-05] MEDS: Docusate Sodium 100 MG Cap PO SCH (08:15)
[2023-06-05] MEDS: Bisacodyl 5 MG Tab PO SCH (08:15)
[2023-06-05] MEDS: Loratadine 10 MG Tab.DIS PO SCH (08:15)
[2023-06-05] MEDS: Pantoprazole 40 MG Tab.CR PO SCH (08:15)
[2023-06-05] MEDS: Magnesium Hydroxide 400 MG/5 ML Susp 30 ML Cup PO SCH (08:16)
[2023-06-05] MEDS: Nystatin Crm 15 GM Tube TOP SCH (08:16)
[2023-06-05] MEDS: Formoterol/Mometasone 200-5 MCG 8.8 GM Inhaler IH SCH (08:16)
[2023-06-05] MEDS: lamoTRIgine 100 MG Tab PO SCH (08:16)
== END 2023-06-05 11:10 | disposition home or self-care (01) | DRG 326 ==
LOC: JP.ED 20:11 → JP.MS 22:19 → OBSVTOIN 05-31 10:40
PROVIDERS: ADMIT Student in an Organized Health Care Education/Training Program; ATTEND Surgery
PROC: 0BQT0ZZ Repair Diaphragm, Open Approach (ICD-10-PCS; principal; 2023-05-31)
PROC: 0D1 Gastrointestinal System, Bypass (ICD-10-PCS; 2023-05-31)
PROC: 0FB20ZZ Excision of Left Lobe Liver, Open Approach (ICD-10-PCS; 2023-05-31)
PROC: 0DTL0ZZ Resection of Transverse Colon, Open Approach (ICD-10-PCS; 2023-05-31)
PROC: 0FTG0ZZ Resection of Pancreas, Open Approach (ICD-10-PCS; 2023-05-31)
PROC: 0WQFXZZ Repair Abdominal Wall, External Approach (ICD-10-PCS; 2023-05-31)
PROC: 0DB60ZZ Excision of Stomach, Open Approach (ICD-10-PCS; 2023-05-31)
PROC: 3E0M05Z Introduction of Adhesion Barrier into Peritoneal Cavity, Open Approach (ICD-10-PCS; 2023-06-02)
DX: K25.5 Chronic or unspecified gastric ulcer with perforation (principal); K65.1 Peritoneal abscess; K85.91 Acute pancreatitis with uninfected necrosis, unspecified; E87.6 Hypokalemia; G35 Multiple sclerosis; K21.9 Gastro-esophageal reflux disease without esophagitis; F41.9 Anxiety disorder, unspecified; F43.10 Post-traumatic stress disorder, unspecified; E53.8 Deficiency of other specified B group vitamins; K44.9 Diaphragmatic hernia without obstruction or gangrene; Z88.6 Allergy status to analgesic agent; Z88.8 Allergy status to other drugs, medicaments and biological substances; Z88.0 Allergy status to penicillin; Z91.013 Allergy to seafood; Z98.51 Tubal ligation status; Z98.890 Other specified postprocedural states
CPT/HCPCS: 36415; 36430; 74022; 74022-26; 74177; 74240; 80048; 80053; 82150; 82728; 83735; 83880; 84100; 85025; 85027; 86850; 86900; 86901; 86920; 86922; 87070; 87075; 87077; 87205; 94640; 96365; 96366; 96367; 96375; 99222; 99285; A9270-GY; C9113; G0378; J0131; J0171; J1100; J1170; J2001; J2020; J2185; J2250; J2405; J2704; J2710; J2795; J3010; J3411; J3420; J3475; J3480; J3490; J7030; J7120; J7121; J7620; J8540; P9016; P9047; Q9967; U0002

== ENCOUNTER 2023-09-02 10:31 | Inpatient (IN) | payer MEDICAID ==
[2023-09-02] MEDS ORDERED: Sodium Chloride 0.9% 10 ML Syringe FLUSH PRN ×2 (11:31→13:30)
[2023-09-02] MEDS ORDERED: Sodium Chloride 0.9% 1,000 ML IV ONE (11:31)
[2023-09-02] MEDS ORDERED: Pantoprazole 40 MG Vial IVPUSH ONE (11:39)
[2023-09-02 11:51] LABS: BASOPHILS PERCENT AUTO 0.1 % (0.1-1.3); HEMATOCRIT 35.4 % (34.3-46.0); HEMOGLOBIN 13.2 g/dL (11.2-15.5); IMMATURE GRAN ABSOLUTE AUTO 0.06 K/uL (0.00-0.23); IMMATURE GRAN PERCENT AUTO 0.8 % (0.0-0.7); LYMPHOCYTES ABSOLUTE AUTO 0.46 K/uL (0.8-3.3); MEAN CORPUSCULAR HEMOGLOBIN 38.2 pg (31.6-35.5); MEAN CORPUSCULAR HGB CONC 37.3 g/dL (31.6-35.5); MEAN CORPUSCULAR VOLUME 102.3 fL (81.4-99.0); MONOCYTES ABSOLUTE AUTO 0.59 K/uL (0.20-0.90); MONOCYTES PERCENT AUTO 7.8 % (3.3-12.6); NEUTROPHILS ABSOLUTE AUTO 6.49 K/uL (1.0-7.6); NEUTROPHILS PERCENT AUTO 85.3 % (40.0-78.1); PLATELET COUNT,PLT 296 K/uL (130-375); RED BLOOD CELL COUNT 3.46 M/uL (3.77-5.24); WHITE BLOOD CELL COUNT,WBC 7.6 K/uL (3.2-11.0)
[2023-09-02 11:53] LABS: BASOPHILS ABSOLUTE AUTO 0.01 K/uL (0.00-0.10)
[2023-09-02 12:10] LABS: INR 1.3; PROTHROMBIN TIME 12.7 sec (9.2-10.6); PTT,PARTIAL THROMBOPLSTIN TIME 24.1 sec (21.8-27.3)
[2023-09-02 12:16] LABS: A/G RATIO 1.3 (1.2-2.2); ALANINE AMINOTRANSFERASE,ALT 9 U/L (12-78); ALBUMIN 2.6 g/dL (3.4-5.0); ALKALINE PHOSPHATASE 54 U/L (46-116); ASPARTATE AMNIOTRANSFERASE,AST 26 U/L (15-37); BLOOD UREA NITROGEN,BUN 12 mg/dL (7-18); C-REACTIVE PROTEIN 0.12 mg/dL (0.0-0.3); CALCIUM 7.8 mg/dL (8.5-10.1); CARBON DIOXIDE,CO2 22 mmol/L (21-32); CREATININE 0.7 mg/dL (0.6-1.0); EST CRCL DRUG DOSING (CG) 74.91 mL/min; ESTIMATED GFR 109 mL/min (>60); GLUCOSE RANDOM 111 mg/dL (74-106); PROTEIN TOTAL,TP 4.6 g/dL (6.4-8.2)
[2023-09-02 12:21] LABS: CHLORIDE,CL 86 mmol/L (100-108); SODIUM,NA 134 mmol/L (140-148)
[2023-09-02] MEDS ORDERED: Calcium Carbonate 500 MG Tab.Chew PO ONE (12:30)
[2023-09-02] MEDS ORDERED: Potassium Chloride 20 MEQ Tab.ER PO ONE ×3 (12:31→22:27)
[2023-09-02] MEDS ORDERED: Magnesium Sulfate/Water 2 GM in Premix Bag 1 BAG IV ONE (12:31)
[2023-09-02 12:47] LABS: CORONAVIRUS COVID-19 NAA NEGATIVE (NEGATIVE); INFLUENZA A NAA NEGATIVE (NEGATIVE); INFLUENZA B NAA NEGATIVE (NEGATIVE); RESPIRATORY SYNCYTIAL VIR NAA NEGATIVE (NEGATIVE)
[2023-09-02] MEDS ORDERED: Iopamidol 612 MG/ML 100 ML Bottle IV PRN (13:30)
[2023-09-02] MEDS ORDERED: Sodium Chloride 0.9% 50 ML IV ONE (13:30)
[2023-09-02] MEDS: Potassium Chloride 20 MEQ in Premix Bag 1 BAG IV SCH ×2 (13:58→19:06)
[2023-09-02] MEDS ORDERED: Albuterol 0.083% 2.5 MG/3 ML Neb Soln NEB PRN (16:27)
[2023-09-02] MEDS ORDERED: Sennosides/Docusate Sodium 50-8.6 MG Tab PO PRN (16:27)
[2023-09-02] MEDS ORDERED: Acetaminophen 325 MG Tab PO PRN (16:27)
[2023-09-02] MEDS ORDERED: oxyCODONE 5 MG Tab PO PRN (16:27)
[2023-09-02] MEDS ORDERED: tiZANidine 2 MG Tab PO PRN (16:38)
[2023-09-02] MEDS ORDERED: Formoterol/Mometasone 200-5 MCG 8.8 GM Inhaler IH PRN (16:39)
[2023-09-02] MEDS ORDERED: Calcium Gluconate 2 GM in Sodium Chloride 0.9% 100 ML IV ONE (17:00)
[2023-09-02] MEDS: Sodium Chloride 0.9% 1,000 ML IV SCH (17:13)
[2023-09-02] MEDS: Enoxaparin 40 MG/0.4 ML Syringe SUBCUT SCH (17:24)
[2023-09-02] MEDS ORDERED: Potassium Chloride 100 ML ONE (19:04)
[2023-09-02] MEDS ORDERED: Magnesium Sulfate/Water 2 GM in Premix Bag 1 BAG IV SCH (20:00)
[2023-09-02] MEDS: QUEtiapine 25 MG Tab PO SCH (22:03)
[2023-09-02] MEDS: QUEtiapine 100 MG Tab PO SCH (22:03)
[2023-09-02] MEDS: Magnesium Oxide 400 MG Tab PO SCH (22:03)
[2023-09-02] MEDS: Pantoprazole 40 MG Tab.CR PO SCH (22:03)
[2023-09-02 22:25] LABS: APPEARANCE,URINE SLIGHTLY CLOUDY (CLEAR); BILIRUBIN,URINE MODERATE (NEGATIVE); GLUCOSE,URINE NEGATIVE (NEGATIVE); KETONES,URINE 40 mg/dL (NEGATIVE); LEUKOCYTE ESTERASE,URINE NEGATIVE (NEGATIVE); NITRITE,URINE NEGATIVE (NEGATIVE); OCCULT BLOOD,URINE NEGATIVE (NEGATIVE); PH,URINE 6.5 (5.0-8.0); PROTEIN,URINE TRACE mg/dL (NEGATIVE)
[2023-09-02 22:26] LABS: AMORPHOUS SEDIMENT,URINE NOT SEEN; BACTERIA,URINE MODERATE; COLOR,URINE OTHER (YELLOW); EPITHELIAL CELLS,URINE FEW; MUCUS,URINE FEW; RBC,URINE 0-5 (0-5); WBC,URINE 0-5 (0-5)
[2023-09-03 05:28] LABS: BASOPHILS PERCENT AUTO 0.2 % (0.1-1.3); EOSINOPHILS ABSOLUTE AUTO 0.08 K/uL (0.00-0.40); EOSINOPHILS PERCENT AUTO 1.3 % (0.0-5.4); HEMATOCRIT 30.2 % (34.3-46.0); HEMOGLOBIN 10.6 g/dL (11.2-15.5); IMMATURE GRAN PERCENT AUTO 1.7 % (0.0-0.7); LYMPHOCYTES PERCENT AUTO 18.2 % (11.4-47.7); MEAN CORPUSCULAR HEMOGLOBIN 37.5 pg (31.6-35.5); MEAN CORPUSCULAR HGB CONC 35.1 g/dL (31.6-35.5); MEAN CORPUSCULAR VOLUME 106.7 fL (81.4-99.0); MONOCYTES ABSOLUTE AUTO 0.54 K/uL (0.20-0.90); MONOCYTES PERCENT AUTO 8.9 % (3.3-12.6); NEUTROPHILS ABSOLUTE AUTO 4.21 K/uL (1.0-7.6); NEUTROPHILS PERCENT AUTO 69.7 % (40.0-78.1); PLATELET COUNT,PLT 195 K/uL (130-375)
[2023-09-03 05:42] LABS: BASOPHILS ABSOLUTE AUTO 0.01 K/uL (0.00-0.10)
[2023-09-03 05:43] LABS: RED BLOOD CELL COUNT 2.83 M/uL (3.77-5.24)
[2023-09-03 06:02] LABS: A/G RATIO 1.1 (1.2-2.2); ALANINE AMINOTRANSFERASE,ALT 5 U/L (12-78); ALBUMIN 1.9 g/dL (3.4-5.0); ALKALINE PHOSPHATASE 41 U/L (46-116); ANION GAP 14.4 mmol/L (5.0-14.0); ASPARTATE AMNIOTRANSFERASE,AST 15 U/L (15-37); BILIRUBIN TOTAL 1.6 mg/dL (0.2-1.0); BLOOD UREA NITROGEN,BUN 5 mg/dL (7-18); CARBON DIOXIDE,CO2 24 mmol/L (21-32); CHLORIDE,CL 102 mmol/L (100-108); CREATININE 0.6 mg/dL (0.6-1.0); EST CRCL DRUG DOSING (CG) 89.79 mL/min; ESTIMATED GFR 113 mL/min (>60); GLUCOSE RANDOM 70 mg/dL (74-106); POTASSIUM,K 4.5 mmol/L (3.6-5.2); PROTEIN TOTAL,TP 3.6 g/dL (6.4-8.2); SODIUM,NA 140 mmol/L (140-148)
[2023-09-03 06:04] LABS: CALCIUM 6.8 mg/dL (8.5-10.1); MAGNESIUM 2.2 mg/dL (1.8-2.4); TSH ULTRASENSITIVE 1.506 uIU/mL (0.358-3.740)
[2023-09-03] MEDS ORDERED: Calcium Gluconate 2 GM in Sodium Chloride 0.9% 100 ML IV ONE ×2 (06:07→11:00)
[2023-09-03] MEDS: Sodium Chloride 0.9% 1,000 ML IV SCH (06:33)
[2023-09-03 07:46] LABS: FOLIC ACID 7.9 ng/ml (8.6-58.9)
[2023-09-03] MEDS ORDERED: Propofol 200 MG/20 ML SDV ONE (08:47)
[2023-09-03] MEDS ORDERED: Midazolam 1 MG/ML 2 ML SDV ONE (08:47)
[2023-09-03] MEDS ORDERED: fentaNYL 50 MCG/ML SDV ONE (08:47)
[2023-09-03] MEDS ORDERED: MVI, Adult with Vitamin K 10 ML, Thiamine 200 MG, Zinc/Copper/Manganese/Selenium 1 ML i... IV ONE ×4 (09:00)
[2023-09-03] MEDS ORDERED: Dexamethasone 4 MG/ML SDV ONE (09:39)
[2023-09-03] MEDS: Magnesium Oxide 400 MG Tab PO SCH ×2 (10:51→20:42)
[2023-09-03] MEDS: Pantoprazole 40 MG Tab.CR PO SCH ×2 (10:51→17:06)
[2023-09-03] MEDS: lamoTRIgine 100 MG Tab PO SCH (10:51)
[2023-09-03] MEDS: Albumin Human 25 GM in Premix Bag 1 BAG IV SCH (13:13)
[2023-09-03] MEDS: Ondansetron 4 MG/2 ML SDV IV PRN (13:25)
[2023-09-03] MEDS: Enoxaparin 40 MG/0.4 ML Syringe SUBCUT SCH (17:06)
[2023-09-03] MEDS: QUEtiapine 25 MG Tab PO SCH (20:42)
[2023-09-03] MEDS: QUEtiapine 100 MG Tab PO SCH (20:42)
[2023-09-04 07:09] LABS: A/G RATIO 1.8 (1.2-2.2); ALANINE AMINOTRANSFERASE,ALT 4 U/L (12-78); ALBUMIN 2.3 g/dL (3.4-5.0); ALKALINE PHOSPHATASE 36 U/L (46-116); ASPARTATE AMNIOTRANSFERASE,AST 17 U/L (15-37); BILIRUBIN TOTAL 0.9 mg/dL (0.2-1.0); BLOOD UREA NITROGEN,BUN 3 mg/dL (7-18); CALCIUM 7.4 mg/dL (8.5-10.1); CARBON DIOXIDE,CO2 24 mmol/L (21-32); CHLORIDE,CL 100 mmol/L (100-108); CREATININE 0.5 mg/dL (0.6-1.0); EST CRCL DRUG DOSING (CG) 107.75 mL/min; ESTIMATED GFR 119 mL/min (>60); GLUCOSE RANDOM 58 mg/dL (74-106); MAGNESIUM 1.6 mg/dL (1.8-2.4); PROTEIN TOTAL,TP 3.6 g/dL (6.4-8.2); SODIUM,NA 138 mmol/L (140-148)
[2023-09-04] MEDS: Sodium Chloride 0.9% 10 ML Syringe FLUSH PRN ×2 (07:36→13:05)
[2023-09-04] MEDS: Pantoprazole 40 MG Tab.CR PO SCH ×2 (07:49→16:26)
[2023-09-04] MEDS ORDERED: Magnesium Sulfate/Water 2 GM in Premix Bag 1 BAG IV SCH (08:00)
[2023-09-04] MEDS ORDERED: Magnesium Sulfate/Water 2 GM/50 ML BAG IV SCH (08:00)
[2023-09-04] MEDS: Ondansetron 4 MG/2 ML SDV IV PRN ×2 (08:41→13:04)
[2023-09-04] MEDS ORDERED: MVI, Adult with Vitamin K 10 ML, Thiamine 200 MG, Zinc/Copper/Manganese/Selenium 1 ML i... IV SCH ×4 (09:00)
[2023-09-04] MEDS: lamoTRIgine 100 MG Tab PO SCH (09:14)
[2023-09-04] MEDS: Magnesium Oxide 400 MG Tab PO SCH ×2 (09:14→20:30)
[2023-09-04] MEDS: MVI, Adult with Vitamin K 10 ML, Thiamine 200 MG, Zinc/Copper/Manganese/Selenium 1 ML i... IV SCH ×4 (09:51)
[2023-09-04] MEDS: Albumin Human 25 GM in Premix Bag 1 BAG IV SCH (11:57)
[2023-09-04] MEDS ORDERED: Albumin Human 25 GM in Premix Bag 1 BAG IV SCH (16:00)
[2023-09-04] MEDS: Magnesium Sulfate/Water 2 GM in Premix Bag 1 BAG IV SCH ×2 (16:25→21:33)
[2023-09-04] MEDS: Enoxaparin 40 MG/0.4 ML Syringe SUBCUT SCH (17:08)
[2023-09-04] MEDS: QUEtiapine 25 MG Tab PO SCH (20:30)
[2023-09-04] MEDS: QUEtiapine 100 MG Tab PO SCH (20:30)
[2023-09-04 23:20] LABS: COPPER,SERUM/PLASMA 33.2 ug/dL (80.0-155.0)
[2023-09-05] MEDS: Magnesium Sulfate/Water 2 GM in Premix Bag 1 BAG IV SCH ×2 (04:28→11:16)
[2023-09-05 04:31] LABS: HEMATOCRIT 26.9 % (34.3-46.0); MEAN CORPUSCULAR HEMOGLOBIN 37.7 pg (31.6-35.5); MEAN CORPUSCULAR HGB CONC 33.5 g/dL (31.6-35.5); MEAN CORPUSCULAR VOLUME 112.6 fL (81.4-99.0); WHITE BLOOD CELL COUNT,WBC 5.2 K/uL (3.2-11.0)
[2023-09-05 04:50] LABS: RED BLOOD CELL COUNT 2.39 M/uL (3.77-5.24)
[2023-09-05 04:56] LABS: A/G RATIO 1.6 (1.2-2.2); ALANINE AMINOTRANSFERASE,ALT 7 U/L (12-78); ALBUMIN 2.4 g/dL (3.4-5.0); ALKALINE PHOSPHATASE 32 U/L (46-116); ANION GAP 11.7 mmol/L (5.0-14.0); ASPARTATE AMNIOTRANSFERASE,AST 24 U/L (15-37); BILIRUBIN TOTAL 0.7 mg/dL (0.2-1.0); BLOOD UREA NITROGEN,BUN 4 mg/dL (7-18); CARBON DIOXIDE,CO2 27 mmol/L (21-32); CHLORIDE,CL 102 mmol/L (100-108); CREATININE 0.5 mg/dL (0.6-1.0); EST CRCL DRUG DOSING (CG) 112.89 mL/min; ESTIMATED GFR 119 mL/min (>60); GLUCOSE RANDOM 76 mg/dL (74-106); PHOSPHORUS 1.6 mg/dL (2.5-4.9); POTASSIUM,K 4.1 mmol/L (3.6-5.2); PROTEIN TOTAL,TP 3.9 g/dL (6.4-8.2); SODIUM,NA 141 mmol/L (140-148)
[2023-09-05] MEDS ORDERED: Potassium Phosphates 60 MMOLE in Sodium Chloride 0.9% 250 ML IV ONE (06:57)
[2023-09-05] MEDS: Pantoprazole 40 MG Tab.CR PO SCH (07:02)
[2023-09-05] MEDS ORDERED: Potassium Phos in 0.9 % NaCl 15 MMOL in Premix Bag 1 BAG IV ONE ×2 (08:00)
[2023-09-05] MEDS: lamoTRIgine 100 MG Tab PO SCH (08:05)
[2023-09-05] MEDS: Magnesium Oxide 400 MG Tab PO SCH (08:05)
[2023-09-05] MEDS ORDERED: MVI, Adult with Vitamin K 10 ML, Thiamine 200 MG, Zinc/Copper/Manganese/Selenium 1 ML i... IV SCH ×4 (09:00)
[2023-09-05] MEDS ORDERED: Folic Acid 50 MG/10 ML MDV IV SCH (09:00)
[2023-09-05] MEDS ORDERED: Folic Acid 1 MG Tab PO SCH (09:30)
[2023-09-05] MEDS ORDERED: Folic Acid 1 MG in Sodium Chloride 0.9% 50 ML IV SCH (10:00)
[2023-09-05] MEDS: MVI, Adult with Vitamin K 10 ML, Thiamine 200 MG, Zinc/Copper/Manganese/Selenium 1 ML i... IV SCH ×4 (10:15)
[2023-09-05 10:52] VITALS: BP 88/68; PULSE 98
[2023-09-05] MEDS ORDERED: SODIUM CHLORIDE 0.9% IV SCH (12:00)
[2023-09-05] MEDS ORDERED: CUPRIC CHLORIDE IV SCH (12:00)
[2023-09-05] MEDS ORDERED: Ondansetron 4 MG Tab.DIS PO ONE (13:24)
[2023-09-05] MEDS ORDERED: Potassium Phos in 0.9 % NaCl 15 MMOL in Premix Bag 1 BAG IV SCH ×2 (16:00)
[2023-09-06] MEDS ORDERED: Albumin Human 25 GM in Premix Bag 1 BAG IV SCH ×2
[2023-09-06 08:58] LABS: VITAMIN A (RETINOL) 0.15 mg/L (0.30-1.20); VITAMIN A (RETINYL PALMITATE) <0.02 mg/L (0.00-0.10)
== END 2023-09-05 13:48 | DRG 640 ==
LOC: JP.ED 10:31 → JP.MS 15:10
PROVIDERS: ADMIT Hospitalist; ATTEND Hospitalist
PROC: 0D758ZZ Dilation of Esophagus, Via Natural or Artificial Opening Endoscopic (ICD-10-PCS; principal; 2023-09-03 10:00)
DX: E86.0 Dehydration (principal); E43 Unspecified severe protein-calorie malnutrition; R64 Cachexia; Z68.1 Body mass index [BMI] 19.9 or less, adult; N39.0 Urinary tract infection, site not specified; M62.84 Sarcopenia; E83.42 Hypomagnesemia; E03.9 Hypothyroidism, unspecified; G35 Multiple sclerosis; L89.322 Pressure ulcer of left buttock, stage 2; R13.10 Dysphagia, unspecified; F31.9 Bipolar disorder, unspecified; E83.51 Hypocalcemia; E87.6 Hypokalemia; K21.9 Gastro-esophageal reflux disease without esophagitis; J45.909 Unspecified asthma, uncomplicated; F41.9 Anxiety disorder, unspecified; F43.12 Post-traumatic stress disorder, chronic; Z90.49 Acquired absence of other specified parts of digestive tract; Z11.52 Encounter for screening for COVID-19; Z98.51 Tubal ligation status; Z90.89 Acquired absence of other organs; Z88.8 Allergy status to other drugs, medicaments and biological substances; Z88.1 Allergy status to other antibiotic agents; Z91.013 Allergy to seafood; Z98.890 Other specified postprocedural states; Z87.440 Personal history of urinary (tract) infections
CPT/HCPCS: 0241U; 36415; 71045; 71045-26; 74177; 74177-26; 80053; 81001; 82306; 82330; 82525; 82607; 82728; 82746; 83690; 83735; 84100; 84132; 84145; 84443; 84484; 84590; 84630; 84703; 85025; 85027; 85610; 85730; 86140; 86850; 86900; 86901; 87086; 93005; 93010; 93306; 97161-GP; 99222; 99232; 99238; 99285; A9270-GY; C1726; C9113; J0612; J1100; J1650; J2250; J2405; J2704; J3010; J3411; J3475; J3480; J3490; J7030; J7120; P9047; Q0162; Q9967; U0002

== ENCOUNTER 2023-10-22 16:34 | Emergency (ER) | payer MEDICAID ==
[2023-10-22] MEDS: Methocarbamol 500 MG Tab PO ONE (18:41)
[2023-10-22 18:53] VITALS: BP 119/76; PULSE 102
== END 2023-10-22 19:15 | disposition home or self-care (01) ==
LOC: JP.ED 16:34
DX: M62.838 Other muscle spasm (principal); M79.605 Pain in left leg; J45.909 Unspecified asthma, uncomplicated; K21.9 Gastro-esophageal reflux disease without esophagitis; Z88.8 Allergy status to other drugs, medicaments and biological substances; Z88.0 Allergy status to penicillin; Z91.013 Allergy to seafood; Z88.6 Allergy status to analgesic agent; Z79.899 Other long term (current) drug therapy
CPT/HCPCS: 99283; A9270-GY

== ENCOUNTER 2023-10-27 16:13 | Emergency (ER) | payer MEDICAID ==
[2023-10-27] MEDS ORDERED: Methocarbamol 500 MG Tab PO ONE (16:34)
[2023-10-27 16:35] VITALS: BP 120/80; PULSE 97
== END 2023-10-27 16:50 | disposition home or self-care (01) ==
LOC: JP.ED 16:13
DX: M54.2 Cervicalgia (principal); G89.29 Other chronic pain; K21.9 Gastro-esophageal reflux disease without esophagitis; Z91.013 Allergy to seafood; Z88.0 Allergy status to penicillin; Z88.6 Allergy status to analgesic agent; Z79.899 Other long term (current) drug therapy; Z90.49 Acquired absence of other specified parts of digestive tract
CPT/HCPCS: 99283; A9270

== ENCOUNTER 2023-10-30 12:21 | Emergency (ER) | payer MEDICAID ==
[2023-10-30 13:51] LABS: BASOPHILS ABSOLUTE AUTO 0.04 K/uL (0.00-0.10); BASOPHILS PERCENT AUTO 1.1 % (0.1-1.3); EOSINOPHILS ABSOLUTE AUTO 0.03 K/uL (0.00-0.40); EOSINOPHILS PERCENT AUTO 0.8 % (0.0-5.4); HEMATOCRIT 37.3 % (34.3-46.0); HEMOGLOBIN 12.9 g/dL (11.2-15.5); IMMATURE GRAN PERCENT AUTO 0.3 % (0.0-0.7); LYMPHOCYTES ABSOLUTE AUTO 0.96 K/uL (0.8-3.3); LYMPHOCYTES PERCENT AUTO 26.2 % (11.4-47.7); MEAN CORPUSCULAR HEMOGLOBIN 33.1 pg (31.6-35.5); MEAN CORPUSCULAR HGB CONC 34.6 g/dL (31.6-35.5); MEAN CORPUSCULAR VOLUME 95.6 fL (81.4-99.0); MONOCYTES ABSOLUTE AUTO 0.42 K/uL (0.20-0.90); MONOCYTES PERCENT AUTO 11.5 % (3.3-12.6); NEUTROPHILS PERCENT AUTO 60.1 % (40.0-78.1); PLATELET COUNT,PLT 318 K/uL (130-375); WHITE BLOOD CELL COUNT,WBC 3.7 K/uL (3.2-11.0)
[2023-10-30 13:52] LABS: IMMATURE GRAN ABSOLUTE AUTO 0.01 K/uL (0.00-0.23)
[2023-10-30 14:14] LABS: A/G RATIO 1.3 (1.2-2.2); ALANINE AMINOTRANSFERASE,ALT 159 U/L (12-78); ALBUMIN 2.8 g/dL (3.4-5.0); ALKALINE PHOSPHATASE 92 U/L (46-116); ASPARTATE AMNIOTRANSFERASE,AST 179 U/L (15-37); BILIRUBIN TOTAL 2.4 mg/dL (0.2-1.0); BLOOD UREA NITROGEN,BUN 6 mg/dL (7-18); CALCIUM 7.7 mg/dL (8.5-10.1); CARBON DIOXIDE,CO2 33 mmol/L (21-32); CHLORIDE,CL 98 mmol/L (100-108); CREATININE 0.5 mg/dL (0.6-1.0); ESTIMATED GFR 119 mL/min (>60); GLUCOSE RANDOM 71 mg/dL (74-106); SODIUM,NA 136 mmol/L (140-148)
[2023-10-30 14:15] LABS: ANION GAP 7.7 mmol/L (5.0-14.0)
[2023-10-30 14:16] LABS: POTASSIUM,K 2.7 mmol/L (3.6-5.2)
[2023-10-30] MEDS ORDERED: Potassium Chloride 20 MEQ Tab.ER PO ONE (14:32)
[2023-10-30 14:43] VITALS: BP 104/76; PULSE 87
== END 2023-10-30 15:15 | disposition home or self-care (01) ==
LOC: JP.ED 12:21
DX: R60.0 Localized edema (principal); E87.6 Hypokalemia; E88.09 Other disorders of plasma-protein metabolism, not elsewhere classified; E16.1 Other hypoglycemia; K76.89 Other specified diseases of liver; K21.9 Gastro-esophageal reflux disease without esophagitis; Z88.0 Allergy status to penicillin; Z88.1 Allergy status to other antibiotic agents; Z91.013 Allergy to seafood; Z88.6 Allergy status to analgesic agent; Z79.899 Other long term (current) drug therapy
CPT/HCPCS: 36415; 80053; 83735; 85025; 85379; 99284; A9270-GY

== ENCOUNTER 2023-11-12 09:53 | Emergency (ER) | payer MEDICAID ==
[2023-11-12] MEDS ORDERED: droPERidol 5 MG/2 ML SDV IVPUSH ONE (11:03)
[2023-11-12] MEDS ORDERED: Ketorolac 30 MG/ML SDV IVPUSH ONE (11:03)
[2023-11-12] MEDS ORDERED: Sodium Chloride 0.9% 10 ML Syringe FLUSH PRN (11:03)
[2023-11-12] MEDS ORDERED: diphenhydrAMINE 50 MG/ML SDV IVPUSH ONE (11:03)
[2023-11-12] MEDS ORDERED: Sodium Chloride 0.9% 1,000 ML IV SCH (11:15)
[2023-11-12 11:16] LABS: BASOPHILS PERCENT AUTO 0.2 % (0.1-1.3); HEMATOCRIT 37.5 % (34.3-46.0); IMMATURE GRAN PERCENT AUTO 0.2 % (0.0-0.7); LYMPHOCYTES ABSOLUTE AUTO 0.69 K/uL (0.8-3.3); LYMPHOCYTES PERCENT AUTO 16.1 % (11.4-47.7); MEAN CORPUSCULAR HEMOGLOBIN 32.7 pg (31.6-35.5); MEAN CORPUSCULAR HGB CONC 34.7 g/dL (31.6-35.5); MEAN CORPUSCULAR VOLUME 94.2 fL (81.4-99.0); MONOCYTES ABSOLUTE AUTO 0.21 K/uL (0.20-0.90); MONOCYTES PERCENT AUTO 4.9 % (3.3-12.6); NEUTROPHILS ABSOLUTE AUTO 3.36 K/uL (1.0-7.6); NEUTROPHILS PERCENT AUTO 78.6 % (40.0-78.1); PLATELET COUNT,PLT 406 K/uL (130-375); RED BLOOD CELL COUNT 3.98 M/uL (3.77-5.24); WHITE BLOOD CELL COUNT,WBC 4.3 K/uL (3.2-11.0)
[2023-11-12 11:27] LABS: BASOPHILS ABSOLUTE AUTO 0.01 K/uL (0.00-0.10); IMMATURE GRAN ABSOLUTE AUTO 0.01 K/uL (0.00-0.23)
[2023-11-12 11:37] LABS: A/G RATIO 1.2 (1.2-2.2); ALANINE AMINOTRANSFERASE,ALT 73 U/L (12-78); ALBUMIN 2.8 g/dL (3.4-5.0); ALKALINE PHOSPHATASE 157 U/L (46-116); ASPARTATE AMNIOTRANSFERASE,AST 36 U/L (15-37); BILIRUBIN TOTAL 2.9 mg/dL (0.2-1.0); BLOOD UREA NITROGEN,BUN 6 mg/dL (7-18); CALCIUM 7.7 mg/dL (8.5-10.1); CARBON DIOXIDE,CO2 28 mmol/L (21-32); CHLORIDE,CL 92 mmol/L (100-108); CREATININE 0.7 mg/dL (0.6-1.0); EST CRCL DRUG DOSING (CG) 77.84 mL/min; ESTIMATED GFR 109 mL/min (>60); GLUCOSE RANDOM 116 mg/dL (74-106); PROTEIN TOTAL,TP 5.2 g/dL (6.4-8.2); SODIUM,NA 133 mmol/L (140-148)
[2023-11-12 11:46] LABS: ANION GAP 15.6 mmol/L (5.0-14.0)
[2023-11-12 11:47] LABS: POTASSIUM,K 2.6 mmol/L (3.6-5.2)
[2023-11-12] MEDS ORDERED: Potassium Chloride 20 MEQ Tab.ER PO ONE ×2 (11:49→13:42)
[2023-11-12] MEDS ORDERED: Potassium Chloride 20 MEQ in Premix Bag 1 BAG IV ONE (11:49)
[2023-11-12] MEDS ORDERED: Potassium Chloride 20 MEQ, Lidocaine 1% 2 ML in Sodium Chloride 0.9% 100 ML IV ONE (12:15)
[2023-11-12 13:11] VITALS: BP 122/79; PULSE 99
== END 2023-11-12 15:32 ==
LOC: JP.ED 09:53
DX: E87.6 Hypokalemia (principal)
CPT/HCPCS: 36415; 80053; 83605; 85025; 96361; 96365; 96366; 96375; 99284; 99284-25; A9270-GY; J1200; J1790; J1885; J3480; J3490; J7030

== ENCOUNTER 2023-11-22 08:48 | Emergency (ER) | payer MEDICAID ==
[2023-11-22 09:14] LABS: BASOPHILS PERCENT AUTO 0.3 % (0.1-1.3); HEMATOCRIT 35.9 % (34.3-46.0); HEMOGLOBIN 12.5 g/dL (11.2-15.5); IMMATURE GRAN PERCENT AUTO 0.6 % (0.0-0.7); LYMPHOCYTES PERCENT AUTO 25.2 % (11.4-47.7); MEAN CORPUSCULAR HEMOGLOBIN 32.7 pg (31.6-35.5); MEAN CORPUSCULAR HGB CONC 34.8 g/dL (31.6-35.5); MONOCYTES ABSOLUTE AUTO 0.28 K/uL (0.20-0.90); MONOCYTES PERCENT AUTO 7.8 % (3.3-12.6); NEUTROPHILS ABSOLUTE AUTO 2.36 K/uL (1.0-7.6); NEUTROPHILS PERCENT AUTO 66.1 % (40.0-78.1); PLATELET COUNT,PLT 240 K/uL (130-375); RED BLOOD CELL COUNT 3.82 M/uL (3.77-5.24); WHITE BLOOD CELL COUNT,WBC 3.6 K/uL (3.2-11.0)
[2023-11-22 09:16] LABS: BASOPHILS ABSOLUTE AUTO 0.01 K/uL (0.00-0.10); IMMATURE GRAN ABSOLUTE AUTO 0.02 K/uL (0.00-0.23)
[2023-11-22 09:31] LABS: INR 1.3
[2023-11-22 09:40] LABS: A/G RATIO 1.1 (1.2-2.2); ALANINE AMINOTRANSFERASE,ALT 40 U/L (12-78); ALBUMIN 2.4 g/dL (3.4-5.0); ALKALINE PHOSPHATASE 141 U/L (46-116); ASPARTATE AMNIOTRANSFERASE,AST 33 U/L (15-37); BILIRUBIN TOTAL 2.1 mg/dL (0.2-1.0); BLOOD UREA NITROGEN,BUN 11 mg/dL (7-18); CALCIUM 7.5 mg/dL (8.5-10.1); CARBON DIOXIDE,CO2 35 mmol/L (21-32); CHLORIDE,CL 93 mmol/L (100-108); ESTIMATED GFR 71 mL/min (>60); GLUCOSE RANDOM 122 mg/dL (74-106); PROTEIN TOTAL,TP 4.6 g/dL (6.4-8.2); SODIUM,NA 135 mmol/L (140-148)
[2023-11-22 09:54] LABS: ANION GAP 9.9 mmol/L (5.0-14.0); POTASSIUM,K 2.9 mmol/L (3.6-5.2)
[2023-11-22] MEDS ORDERED: NS with KCl 40mEq 1,000 ML IV SCH (10:00)
[2023-11-22 10:01] LABS: APPEARANCE,URINE SLIGHTLY CLOUDY (CLEAR); BILIRUBIN,URINE LARGE (NEGATIVE); COLOR,URINE YELLOW (YELLOW); GLUCOSE,URINE NEGATIVE (NEGATIVE); KETONES,URINE TRACE mg/dL (NEGATIVE); LEUKOCYTE ESTERASE,URINE NEGATIVE (NEGATIVE); NITRITE,URINE NEGATIVE (NEGATIVE); OCCULT BLOOD,URINE NEGATIVE (NEGATIVE); PROTEIN,URINE 30 mg/dL (NEGATIVE)
[2023-11-22 10:10] LABS: AMORPHOUS SEDIMENT,URINE NOT SEEN; BACTERIA,URINE NOT SEEN; EPITHELIAL CELLS,URINE NOT SEEN; MUCUS,URINE MANY; RBC,URINE 0-5 (0-5); WBC,URINE NOT SEEN (0-5)
[2023-11-22] MEDS ORDERED: Prochlorperazine 10 MG/2 ML SDV IVPUSH ONE (10:20)
[2023-11-22] MEDS ORDERED: SUMAtriptan 6 MG/0.5 ML SDV SUBCUT ONE (10:21)
[2023-11-22 10:37] LABS: CORONAVIRUS COVID-19 NAA NEGATIVE (NEGATIVE); INFLUENZA A NAA NEGATIVE (NEGATIVE); INFLUENZA B NAA NEGATIVE (NEGATIVE); RESPIRATORY SYNCYTIAL VIR NAA NEGATIVE (NEGATIVE)
[2023-11-22 10:40] LABS: AMPHETAMINES SCREEN, URINE NEGATIVE (NEGATIVE); BARBITURATE SCREEN,URINE NEGATIVE (NEGATIVE); BENZODIAZEPINES SCREEN,URINE NEGATIVE (NEGATIVE); METHADONE SCREEN, URINE NEGATIVE (NEGATIVE); METHAMPHETAMINES SCREEN, URINE NEGATIVE (NEGATIVE); OXYCODONE SCREEN,URINE NEGATIVE (NEGATIVE); PROPOXYPHENE SCREEN,URINE NEGATIVE (NEGATIVE); THC SCREEN,URINE 50 NG/ML NEGATIVE (NEGATIVE)
[2023-11-22] MEDS ORDERED: Potassium Chloride 20 MEQ Tab.ER PO ONE (12:07)
[2023-11-22 12:52] VITALS: BP 100/63; PULSE 78
[2023-11-22 15:28] LABS: CALCIUM 7.1 mg/dL (8.5-10.1); CREATININE 0.8 mg/dL (0.6-1.0); EST CRCL DRUG DOSING (CG) 68.11 mL/min; POTASSIUM,K 3.5 mmol/L (3.6-5.2)
[2023-11-22 15:30] LABS: ANION GAP 8.5 mmol/L (5.0-14.0)
== END 2023-11-22 16:37 | disposition home or self-care (01) ==
LOC: JP.ED 08:48
DX: E87.6 Hypokalemia (principal); E86.0 Dehydration; E77.8 Other disorders of glycoprotein metabolism; R62.7 Adult failure to thrive; R06.02 Shortness of breath; J45.909 Unspecified asthma, uncomplicated; K21.9 Gastro-esophageal reflux disease without esophagitis; E03.9 Hypothyroidism, unspecified; Z79.899 Other long term (current) drug therapy; Z88.1 Allergy status to other antibiotic agents; Z91.013 Allergy to seafood; Z88.5 Allergy status to narcotic agent; Z88.6 Allergy status to analgesic agent; Z88.8 Allergy status to other drugs, medicaments and biological substances
CPT/HCPCS: 0241U; 36415; 80048; 80053; 80305; 80307; 81001; 83605; 83735; 83880; 84484; 85025; 85610; 86140; 93005; 93010; 96365; 96366; 96372; 96375; 99284; 99285; A9270; J0780; J3030; J3480

== ENCOUNTER 2025-06-21 13:55 | Emergency (ER) | payer MEDICAID ==
[2025-06-21 16:46] VITALS: BP 127/86; PULSE 98
== END 2025-06-21 17:16 | disposition home or self-care (01) ==
LOC: JP.ED 13:55
DX: K04.7 Periapical abscess without sinus (principal); J45.909 Unspecified asthma, uncomplicated; K21.9 Gastro-esophageal reflux disease without esophagitis; Z90.49 Acquired absence of other specified parts of digestive tract; Z88.0 Allergy status to penicillin; Z88.6 Allergy status to analgesic agent; Z88.8 Allergy status to other drugs, medicaments and biological substances; Z91.013 Allergy to seafood; Z91.048 Other nonmedicinal substance allergy status; Z79.899 Other long term (current) drug therapy
CPT/HCPCS: 41800; 99283; J2003